=== PATIENT | male | born 1930 | race Caucasian/White ===

== ENCOUNTER 2018-07-13 22:33 | Emergency (ER) | payer OTHER ==
--- OUTSIDE RECORDS SUMMARY | 2018-07-13 22:35 | XMS REPORT | Clinical Summary ---
:1930 Author Organization [facility] Address [address] [place] [address] Care Team Providers Name Role Phone Reg Abrams MD Primary Care Provider Allergies No Known Allergies Medications Not on file Active Problems Not on file Social History Tobacco Use Types Packs/Day Years Used Date Never Smoker Alcohol Use Drinks/Week oz/Week Comments No Sex Assigned at Date Recorded Not on file Job Start Date Occupation Industry Not on file Not on file Not on file Travel History Travel Start Travel End No recent travel history available. Last Filed Vital Signs Not on file Plan of Treatment Health Maintenance Due Date Last Done Comments SHINGRIX VACCINE (1 of 2) 1982 ZOSTER VACCINE 1992 PNEUMOCOCCAL POLYSACCHARIDE VACCINE AGE 65 AND OVER 1997 PNEUMOCOCCAL-13 1997 INFLUENZA VACCINE 03/13/2018 Results Not on fileafter 07/12/2017 Insurance Payer Benefit Plan / Group Subscriber ID Type Phone Address AETNA MEDICARE AETNA MEDICARE HMO/PPO [facility] xxxxxxxx HMO Advance Directives Patient has advance care planning documents on file. For more information, please contact:[facility] [place] [address]
--- OUTSIDE RECORDS SUMMARY | 2018-07-13 22:36 | XMS REPORT | Continuity of Care Document ---
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 Condition 01/25/2015 Medical 13 Group NEED Active 04/30/20 Condition 01/25/2015 Medical PROPHYLACTIC 13 Group VACCINATION&INOC ULATION FLU OTHER SPECIFIED Active 04/01/20 Condition 01/25/2015 Medical RETENTION OF 13 Group URINE HYPERTENSION Active Condition 01/25/2015 Medical Group DYSLIPIDEMIA Active Condition 01/25/2015 Medical Group BLADDER CANCER Inactive Condition 01/25/2015 Medical Group Medications Medication Details Route Status Patient Ordering Order Source Instructions Provider Date BACTRIM TABS twicw Active 01/26/20 Medical daily 15 Group FLONASE 50 bid Active 06/24/20 Medical MCG/ACT SUSP 14 Group MOBIC 7.5 MG one bid Active 06/24/20 Medical TABS with food. 14 Group DOXYCYCLINE one bid No Longer 04/06/20 Medical MONOHYDRATE Active 14 Group 100 MG CAPS DOXYCYCLINE one bid Active 04/06/20 Medical MONOHYDRATE 14 Group 100 MG CAPS TRIAMTERENE-HC one daily Active 10/28/19 Medical TZ 37.5-25 MG 14 Group CAPS AMLODIPINE 1 tablet Active 07/15/20 Medical BESYLATE 5 MG twice day 13 Group TABS ANDROGEL PUMP 1 to 2 No Longer 07/15/20 Medical 20.25 MG/ACT pump daily Active 13 Group (1.62%) GEL AMLODIPINE 1 tablet Active 07/15/20 Medical BESYLATE 5 MG twice day 13 Group TABS CENTRUM SILVER daily Active 04/01/20 Medical ULTRA MENS 13 Group TABS ADULT ASPIRIN TAKE 1 Active Medical LOW STRENGTH TABLET BY Group 81 MG TBDP MOUTH DAILY [facility] FISH OIL Active Medical 1000 MG CAPS Group [facility] VITAMIN C Active Medical 1000 MG TABS Group FENOFIBRATE 1 tab by Active Medical 145 MG TABS mouth Group daily FENOFIBRATE 1 tab by Active Medical 145 MG TABS mouth Group daily Allergies, Adverse Reactions, Alerts Substance Category Reaction Severity Reaction Status Date Comments Source type Reported Immunizations Immunization Date Given Site Status Last Updated Comments Source influenza 06/24/2014 completed Medical immunization (Flu Group Vax) has been administered influenza 06/11/2012 [facility] Medical immunization (Flu Group Vax) has been administered influenza 08/17/2009 [facility] Medical immunization (Flu Group Vax) has been administered influenza 04/15/2009 [facility] Medical immunization (Flu Group Vax) has been administered influenza 05/14/2008 [facility] Medical immunization (Flu Group Vax) has been administered influenza 05/24/2007 [facility] Medical immunization (Flu Group Vax) has been administered pneumococcal 09/18/2006 [facility] Medical immunization Group administered Results Order Name Results Value Reference Date Interpretation Comments Source Range Chemistry CHOLESTEROL 162 - 199 mg/dl 2014 Medical Group Chemistry TRIGLYCERIDE 165 - 149 mg/dl 2014 Medical Group Chemistry HDL 65 >=61 mg/dl 2014 Medical Group Chemistry LDL 64 - 99 mg/dl 2014 Medical Group Chemistry SODIUM 141 135 - 145 MEQ/L 2014 Medical mmol/L Group Chemistry POTASSIUM 4.9 3.5 - 5.1 MEQ/L 2014 Medical mmol/L Group Chemistry CREATININE 1.6 0.5 - 1.4 mg/dL 2014 Medical Group Chemistry BUN 29 7 - 22 mg/dL 2014 Medical Group Chemistry BUN/CREAT 18 6 - 25 2014 [facility] Group Chemistry ALBUMIN 5.0 3.5 - 5.0 g/dL 2014 Medical Group Chemistry CALCIUM 10.0 8.5 - 10.5 mg/dL 2014 Medical Group Chemistry SGPT (ALT) 40 U/L 0 - 65 2014 Medical Group Chemistry SGOT (AST) 32 U/L 0 - 37 2014 Medical Group Chemistry ALK PHOS 45 U/L 39 - 136 2014 Medical Group Chemistry TSH 2.080 0.360 - uIU/mL 3.740 2014 Medical Group Chemistry PSA < 0.01 0.00 - 4.00 ng/mL 2014 Medical ng/mL Group Hematology HGB 13.5 14.0 - 18.0 g/dL 2014 Medical Group Hematology HCT 39.8 % 42.0 - 54.0 2014 Medical Group Hematology PLATELETS 308 133 - 450 K/CMM 2014 Medical /mm3 Group Chemistry CHOLESTEROL 160 - 199 08/25/ MH mg/dl 2013 Medical Group Chemistry TRIGLYCERIDE 207 - 149 08/25/ MH mg/dl 2013 Medical Group Chemistry HDL 61 >=61 08/25/ MH mg/dl 2013 Medical Group Chemistry CHOLESTEROL 160 - 199 08/25/ MH mg/dl 2013 Medical Group Chemistry TRIGLYCERIDE 207 - 149 08/25/ MH mg/dl 2013 Medical Group Chemistry HDL 61 >=61 08/25/ MH mg/dl 2013 Medical Group Chemistry LDL 58 - 99 08/25/ MH mg/dl 2013 Medical Group Chemistry CHOLESTEROL 160 - 199 08/25/ MH mg/dl 2013 Medical Group Chemistry TRIGLYCERIDE 207 - 149 08/25/ MH mg/dl 2013 Medical Group Chemistry HDL 61 >=61 08/25/ MH mg/dl 2013 Medical Group Chemistry LDL 58 - 99 08/25/ MH mg/dl 2013 Medical Group Chemistry CHOLESTEROL 160 - 199 08/25/ MH mg/dl 2013 Medical Group Chemistry TRIGLYCERIDE 207 - 149 08/25/ MH mg/dl 2013 Medical Group Chemistry HDL 61 >=61 08/25/ MH mg/dl 2013 Medical Group Chemistry HDL 61 >=61 08/25/ MH mg/dl 2013 Medical Group Chemistry PSA < 0.01 0.00 - 4.00 07/15/ MH ng/mL 2012 Medical ng/mL Group Chemistry PSA < 0.01 0.00 - 4.00 07/15/ MH ng/mL 2012 Medical ng/mL Group Chemistry PSA < 0.01 0.00 - 4.00 07/15/ MH ng/mL 2012 Medical ng/mL Group Hematology HGB 12.3 14.0 - 18.0 g/dL 2012 Medical Group Hematology HCT 37.9 % 42.0 - 54.0 2012 Medical Group Hematology PLATELETS 404 133 - 450 K/CMM 2012 Medical /mm3 Group Serology CEA 14.9 0.0 - 3.0 ng/mL 2012 Medical Group Serology CEA 14.9 0.0 - 3.0 ng/mL 2012 Medical Group Serology CEA 14.9 0.0 - 3.0 ng/mL 2012 Medical Group Vital Signs Vital Sign Value Date Comments Source Height 67 01/25/2015 Medical Group Weight 170 01/25/2015 Medical Group Temperature Oral (F) 97.7 F 01/25/2015 Medical Group Heart Rate 65 01/25/2015 Medical Group Systolic (mm Hg) 160 01/25/2015 Medical Group Diastolic (mm Hg) 72 01/25/2015 Medical Group Height 67 12/25/2014 Medical Group Weight 173 12/25/2014 Medical Group Temperature Oral (F) 97.4 F 12/25/2014 Medical Group Heart Rate 72 12/25/2014 Medical Group Systolic (mm Hg) 177 12/25/2014 Medical Group Diastolic (mm Hg) 84 12/25/2014 Medical Group Height 67 06/24/2014 Medical Group Weight 173 06/24/2014 Medical Group Temperature Oral (F) 97.4 F 06/24/2014 Medical Group Heart Rate 72 06/24/2014 Medical Group Systolic (mm Hg) 175 06/24/2014 Medical Group Diastolic (mm Hg) 68 06/24/2014 Medical Group Weight 167 04/06/2014 Medical Group Temperature Oral (F) 96.8 F 04/06/2014 Medical Group Heart Rate 71 04/06/2014 Medical Group Systolic (mm Hg) 120 04/06/2014 Medical Group Diastolic (mm Hg) 80 04/06/2014 Medical Group Weight 172 10/27/2013 Medical Group Temperature Oral (F) 98.7 F 10/27/2013 Medical Group Heart Rate 62 10/27/2013 Medical Group Systolic (mm Hg) 160 10/27/2013 Medical Group Diastolic (mm Hg) 80 10/27/2013 Medical Group Weight 165 07/15/2013 Medical Group Temperature Oral (F) 97.2 F 07/15/2013 Medical Group Heart Rate 80 07/15/2013 Medical Group Systolic (mm Hg) 144 07/15/2013 Medical Group Diastolic (mm Hg) 70 07/15/2013 Medical Group Weight 175 05/26/2013 Medical Group Height 67 05/26/2013 Medical Group Temperature Oral (F) 97.5 F 05/26/2013 Medical Group Heart Rate 66 05/26/2013 Medical Group Systolic (mm Hg) 150 05/26/2013 Medical Group Diastolic (mm Hg) 80 05/26/2013 Medical Group Weight 172 04/01/2013 Medical Group Temperature Oral (F) 98.2 F 04/01/2013 Medical Group Heart Rate 76 04/01/2013 Medical Group Systolic (mm Hg) 140 04/01/2013 Medical Group Diastolic (mm Hg) 76 04/01/2013 Medical Group Encounters Location Location Encounter Encounter Reason Attending ADM DC Status Source Details Type Number For Provider Date Date Visit [facility] Lab Report [id number] Radha 04/06 04/06 [facility] 420 [facility] Office [id number] Radha04/06 [place] Visit 520 [facility] Office [id number] 04/09 [place] Visit 810 [facility] MD [facility] Office [id number] Radha06/24 [place] Visit 690 [facility] Office [id number] Radha12/25 [place] Visit 550 [facility] Office [id number] Radha 01/25 01/25 [place] Visit 680 Medical [facility] MD [facility] Group [facility] Outpatient [id number] RAHDA 05/07 [facility] [place] Outpatient [id number] RADHA 07/22 [facility] [place] Outpatient [id number] RADHA 08/19 [facility] [place] Outpatient [id number] RADHA08/26 [facility] [place] Outpatient [id number] RADHA 09/15 [facility] [place] Outpatient [id number] RADHA 11/04 [facility] [place] Outpatient [id number] RADHA12/27 [facility] [place] Procedures Procedure Code Date Perfomer Comments Source colonoscopy [id number] 01/16/2012 [facility] colonoscopy [id number] 01/16/2012 [facility] bone density 4002.65 07/13/2003 [facility]
--- OUTSIDE RECORDS SUMMARY | 2018-07-13 22:36 | XMS REPORT | Continuity of Care Document ---
:1932 Author Organization [facility] Care Team Providers Name Role Phone MD Abrams Luis Unavailable Unavailable Insurance Providers Payer name Policy type / Policy ID Covered libertarian ID Policy Andrews Coverage type [place] [employer] AETNA - [place] [employer] (MEDICARE SUPPLEMENT) AETNA - [place] [employer] (MEDICARE SUPPLE[place]) [place] [employer] [place] [employer] AETNA (MEDICARE REPLACEMENT [place] PPO) [place]: [place] SOL[place] AETNA (MEDICARE REPLACEMENT [place] PPO) [place]: [place] SOL[employer] SOL[place] SOLUT[place] AETNA - [place] CHEMICAL (MEDICARE SUPPLE[place]) [place] SOLUT[place] AETNA - [place] CHEM[employer] (MEDICARE SUPPLEMENT) AETNA [[id number]] [place] SOLUT[place] AETNA - [place] CHEM[employer] (MEDICARE SUPPLEMENT) AETNA [[id number]] [place] SOLUT[place] AETNA - [place] CHEM[employer] (MEDICARE SUPPLEMENT) AETNA [[id number]] [place] SOLUT[place] AETNA - [place] [employer] (MEDICARE SUPPLEMENT) AETNA [[id number]] [place] SOLUT[place] AETNA - [place] [employer] (MEDICARE SUPPLEMENT) Encounters Encounter Performer Location Date Lab Report Reg Abrams MD [facility] Apr 06, 2014 Problems Problem Effective Dates Problem Status HYPERTENSION Active DYSLIPIDEMIA Active BLADDER CANCER Inactive OTHER SPECIFIED RETENTION OF URINE Apr 01, 2013 Active NEED PROPHYLACTIC VACCINATION&INOCULATION FLU Apr 30, 2013 Active DYSURIA, CHRONIC May 26, 2013 Active URINARY TRACT INFECTION Jul 15, 2013 Active CARCINOMA, BLADDER, HX OF Oct 27, 2013 Active Procedures Date Description Comments Jan 16, 2012 colonoscopy Done Jul 13, 2003 bone density Done Jan 16, 2012 colonoscopy Complete Apr 01, 2013 smoking status never smoker Apr 06, 2014 smoking status Never smoker Medications Medication Instructions Start Date Status ADULT ASPIRIN LOW STRENGTH 81 MG TAKE 1 TABLET BY MOUTH DAILY Active TBDP [facility] FISH OIL 1000 MG CAPS Active [facility] VITAMIN C 1000 MG TABS Active CENTRUM SILVER ULTRA MENS TABS daily Apr 01, 2013 Active AMLODIPINE BESYLATE 5 MG TABS 1 tablet twice day Jul 15, 2013 Active ANDROGEL PUMP 20.25 MG/ACT (1.62%) 1 to 2 pump daily Jul 15, 2013 Active GEL FENOFIBRATE 145 MG TABS 1 tab by mouth daily Active TRIAMTERENE-HCTZ 37.5-25 MG CAPS one daily Oct 27, 2013 Active DOXYCYCLINE MONOHYDRATE 100 MG CAPS one bid Apr 06, 2014 Active Immunizations Vaccine Date Status influenza immunization (Flu Vax) has been administered May 24, 2007 completed influenza immunization (Flu Vax) has been administered May 14, 2008 completed influenza immunization (Flu Vax) has been administered Apr 15, 2009 completed influenza immunization (Flu Vax) has been administered Aug 17, 2009 completed influenza immunization (Flu Vax) has been administered Jun 11, 2012 completed pneumococcal immunization administered Sep 18, 2006 completed Vital Signs Date Description Test Result Apr 01, 2013 weight E&M WEIGHT 172 lb Apr 01, 2013 temperature E&M TEMPERATURE 98.2 deg f Apr 01, 2013 pulse rate E&M PULSE RATE 76 /min Apr 01, 2013 blood pressure, systolic BP SYSTOLIC 140 mm Hg Apr 01, 2013 blood pressure, diastolic BP DIASTOLIC 76 mm Hg May 26, 2013 weight E&M WEIGHT 175 lb May 26, 2013 height E&M HEIGHT 67 in May 26, 2013 temperature E&M TEMPERATURE 97.5 deg f May 26, 2013 pulse rate E&M PULSE RATE 66 /min May 26, 2013 blood pressure, systolic BP SYSTOLIC 150 mm Hg May 26, 2013 blood pressure, diastolic BP DIASTOLIC 80 mm Hg Jul 15, 2013 weight E&M WEIGHT 165 lb Jul 15, 2013 temperature E&M TEMPERATURE 97.2 deg f Jul 15, 2013 pulse rate E&M PULSE RATE 80 /min Jul 15, 2013 blood pressure, systolic BP SYSTOLIC 144 mm Hg Jul 15, 2013 blood pressure, diastolic BP DIASTOLIC 70 mm Hg Oct 27, 2013 weight E&M WEIGHT 172 lb Oct 27, 2013 temperature E&M TEMPERATURE 98.7 deg f Oct 27, 2013 pulse rate E&M PULSE RATE 62 /min Oct 27, 2013 blood pressure, systolic BP SYSTOLIC 160 mm Hg Oct 27, 2013 blood pressure, diastolic BP DIASTOLIC 80 mm Hg Apr 06, 2014 weight E&M WEIGHT 167 lb Apr 06, 2014 temperature E&M TEMPERATURE 96.8 deg f Apr 06, 2014 pulse rate E&M PULSE RATE 71 /min Apr 06, 2014 blood pressure, systolic BP SYSTOLIC 120 mm Hg Apr 06, 2014 blood pressure, diastolic BP DIASTOLIC 80 mm Hg Results Date Description Test Name Value Reference Interpretation Status Jul 15, hemoglobin, blood HGB 12.3 g/dL 14.0-18.0 Low 2012Jul 15, hematocrit, blood HCT 37.9 % 42.0-54.0 Low 2012Jul 15, platelet count PLATELETS 404 K/CMM 181-166 0517 /mm3 Apr 06, cholesterol, serum CHOLESTEROL 160 mg/dl <=199 2013Apr 06, triglyceride, serum, TRIGLYCERIDE 207 mg/dl <=149 High 2013 fasting Apr 06, HDL cholesterol, HDL 61 mg/dl >=61 2013 serum Apr 06, cholesterol, serum CHOLESTEROL 160 mg/dl <=199 2013Apr 06, triglyceride, serum, TRIGLYCERIDE 207 mg/dl <=149 High 2013 fasting Apr 06, HDL cholesterol, HDL 61 mg/dl >=61 2013 serum Apr 06, LDL cholesterol, LDL 58 mg/dl <=99 2013 serum Jul 15, prostate specific PSA < 0.01 0.00-4.00 2013 antigen ng/mL ng/mL Apr 06, cholesterol, serum CHOLESTEROL 160 mg/dl <=199 2013Apr 06, triglyceride, serum, TRIGLYCERIDE 207 mg/dl <=149 High 2013 fasting Apr 06, HDL cholesterol, HDL 61 mg/dl >=61 2013 serum Apr 06, LDL cholesterol, LDL 58 mg/dl <=99 2013 serum Jul 15, carcinoembryonic CEA 14.9 ng/mL 0.0-3.0 High 2013 antigen
--- OUTSIDE RECORDS SUMMARY | 2018-07-13 22:36 | XMS REPORT | Continuity of Care Document ---
:1932 Author Organization [facility] Care Team Providers Name Role Phone MD Abrams Luis Unavailable Unavailable Insurance Providers Payer name Policy type / Policy ID Covered democrat ID Policy Andrews Coverage type [place]: [...] AETNA - [place] [employer] (MEDICARE SUPPLEMENT) AETNA [[id number]] [place] [employer] [employer] AETNA - [place] [employer] (MEDICARE SUPPLEMENT) AETNA [[id number]] [place] SOLUT[place] AETNA - [place] CHEM[employer] (MEDICARE SUPPLEMENT) AETNA [[id number]] [place] SOLUT[place] AETNA - [place] [employer] (MEDICARE SUPPLEMENT) AETNA [[id number]] [place] AETNA - [place] [employer] (MEDICARE SUPPLEMENT) Encounters Encounter Performer Location Date Office Visit Reg Abrams MD [facility] Apr 09, 2014 Problems Problem Effective Dates Problem Status [...] 2012Jul 15, platelet count PLATELETS 404 K/CMM [phone] /mm3 Apr 06, cholesterol, serum CHOLESTEROL 160 [...]
--- OUTSIDE RECORDS SUMMARY | 2018-07-13 22:36 | XMS REPORT | Continuity of Care Document ---
:1932 Author Organization [facility] Care Team Providers Name Role Phone [...] AETNA - [place] [employer] (MEDICARE SUPPLEMENT) AETNA [[id number]] [place] SOL[employer] AETNA - [place] [employer] (MEDICARE SUPPLEMENT) AETNA [[id number]] [place] SOLUT[place] AETNA - [place] [employer] (MEDICARE SUPPLEMENT) AETNA [[id number]] [place] SOLUT[place] AETNA - [place] [employer] (MEDICARE SUPPLEMENT) AETNA [[id number]] [place]UT[place] AETNA - [place] [employer] (MEDICARE SUPPLEMENT) Encounters Encounter Performer Location Date Office Visit Reg Abrams MD [facility] Apr 06, 2014 Problems Problem Effective [...] 2012Jul 15, platelet count PLATELETS 404 K/CMM [phone] /mm3 Jul 15, prostate specific PSA < 0.01 0.00-4.00 2012 antigen ng/mL ng/mL Jul 15, carcinoembryonic CEA 14.9 ng/mL 0.0-3.0 High 2013 antigen
--- OUTSIDE RECORDS SUMMARY | 2018-07-13 22:37 | XMS REPORT | Continuity of Care Document ---
:1930 Author Organization [facility] Care Team Providers Name Role Phone [...] AETNA - [place] CHEM[employer] (MEDICARE SUPPLEMENT) AETNA [[id number]] [place]: [place] [employer] AETNA - [place] CHEMICAL (MEDICARE SUPPLEMENT) AETNA [[id number]] [place]: [place] AETNA - [place] CHEM[employer] (MEDICARE SUPPLEMENT) AETNA [[id number]] [place]: [employer] AETNA - [place] CHEMICAL (MEDICARE SUPPLEMENT) AETNA [[id number]] [place]: [employer] AETNA - [place] CHEMICAL (MEDICARE SUPPLEMENT) AETNA [[id number]] [place]: [place] AETNA - [place] CHEMICAL (MEDICARE SUPPLEMENT) AETNA [[id number]] [place]: [place] AETNA - [place] CHEMICAL (MEDICARE SUPPLEMENT) AETNA [[id number]] [place]: [place] [employer] AETNA - [place] CHEM[employer] (MEDICARE SUPPLEMENT) AETNA (MEDICARE REPLACEMENT BRENDAN PPO) AETNA [[id number]] [place]: [employer] AETNA - [place] CHEMICAL (MEDICARE SUPPLEMENT) AETNA [[id number]] [place]: [employer] AETNA - [place] CHEMICAL (MEDICARE SUPPLEMENT) AETNA [[id number]] [place]: [employer] AETNA - [place] CHEMICAL (MEDICARE SUPPLEMENT) Encounters Encounter Performer Location Date Office Visit Reg Abrams MD [facility] Jan 25, 2015 Problems Problem Effective Dates Problem Status HYPERTENSION Active DYSLIPIDEMIA Active BLADDER CANCER Inactive OTHER SPECIFIED RETENTION OF URINE Apr 01, 2013 Active NEED PROPHYLACTIC VACCINATION&INOCULATION FLU Apr 30, 2013 Active DYSURIA, CHRONIC May 26, 2013 Active URINARY TRACT INFECTION Jul 15, 2013 Active CARCINOMA, BLADDER, HX OF Oct 27, 2013 Active ALLERGIC RHINITIS Jun 24, 2014 Active SACROILIITIS, NOT ELSEWHERE CLASSIFIED Jun 24, 2014 Active PALPITATIONS December 25, 2014 Active PREVENTIVE HEALTH CARE Jan 25, 2015 Active Procedures Date Description Comments Jan 16, 2012 colonoscopy Done Jul 13, 2003 bone density Done Jan 16, 2012 colonoscopy Complete Apr 01, 2013 smoking status never smoker Apr 06, 2014 smoking status Never smoker Jun 24, 2014 smoking status Never smoker December 25, 2014 smoking status Never smoker Jan 25, 2015 smoking status Never smoker Medications Medication Instructions Start Date Status ADULT ASPIRIN LOW STRENGTH 81 MG TAKE 1 TABLET BY MOUTH DAILY Active TBDP [facility] FISH OIL 1000 MG CAPS Active [facility] VITAMIN C 1000 MG TABS Active CENTRUM SILVER ULTRA MENS TABS daily Apr 01, 2013 Active AMLODIPINE BESYLATE 5 MG TABS 1 tablet twice day Jul 15, 2013 Active FENOFIBRATE 145 MG TABS 1 tab by mouth daily Active TRIAMTERENE-HCTZ 37.5-25 MG CAPS one daily Oct 27, 2013 Active ANDROGEL PUMP 20.25 MG/ACT (1.62%) 1 to 2 pump daily Jul 15, 2013 Inactive GEL DOXYCYCLINE MONOHYDRATE 100 MG one bid Apr 06, 2014 Inactive CAPS FLONASE 50 MCG/ACT SUSP bid Jun 24, 2014 Active MOBIC 7.5 MG TABS one bid with food. Jun 24, 2014 Active BACTRIM TABS twicw daily Jan 25, 2015 Active Immunizations Vaccine Date Status influenza immunization [...] pneumococcal immunization administered Sep 18, 2006 completed influenza immunization (Flu Vax) has been administered Jun 24, 2014 completed Vital Signs Date Description Test Result Apr 01, 2013 weight E&M - 3141-9 WEIGHT 172 lb Apr 01, 2013 temperature E&M TEMPERATURE 98.2 deg f Apr 01, 2013 pulse rate E&M - 8867-4 PULSE RATE 76 /min Apr 01, 2013 blood pressure, systolic - 8480-6 BP SYSTOLIC 140 mm Hg Apr 01, 2013 blood pressure, diastolic - 8462-4 BP DIASTOLIC 76 mm Hg May 26, 2013 weight E&M - 3141-9 WEIGHT 175 lb May 26, 2013 height E&M - 8302-2 HEIGHT 67 in May 26, 2013 temperature E&M TEMPERATURE 97.5 deg f May 26, 2013 pulse rate E&M - 8867-4 PULSE RATE 66 /min May 26, 2013 blood pressure, systolic - 8480-6 BP SYSTOLIC 150 mm Hg May 26, 2013 blood pressure, diastolic - 8462-4 BP DIASTOLIC 80 mm Hg Jul 15, 2013 weight E&M - 3141-9 WEIGHT 165 lb Jul 15, 2013 temperature E&M TEMPERATURE 97.2 deg f Jul 15, 2013 pulse rate E&M - 8867-4 PULSE RATE 80 /min Jul 15, 2013 blood pressure, systolic - 8480-6 BP SYSTOLIC 144 mm Hg Jul 15, 2013 blood pressure, diastolic - 8462-4 BP DIASTOLIC 70 mm Hg Oct 27, 2013 weight E&M - 3141-9 WEIGHT 172 lb Oct 27, 2013 temperature E&M TEMPERATURE 98.7 deg f Oct 27, 2013 pulse rate E&M - 8867-4 PULSE RATE 62 /min Oct 27, 2013 blood pressure, systolic - 8480-6 BP SYSTOLIC 160 mm Hg Oct 27, 2013 blood pressure, diastolic - 8462-4 BP DIASTOLIC 80 mm Hg Apr 06, 2014 weight E&M - 3141-9 WEIGHT 167 lb Apr 06, 2014 temperature E&M TEMPERATURE 96.8 deg f Apr 06, 2014 pulse rate E&M - 8867-4 PULSE RATE 71 /min Apr 06, 2014 blood pressure, systolic - 8480-6 BP SYSTOLIC 120 mm Hg Apr 06, 2014 blood pressure, diastolic - 8462-4 BP DIASTOLIC 80 mm Hg Jun 24, 2014 height E&M - 8302-2 HEIGHT 67 in Jun 24, 2014 weight E&M - 3141-9 WEIGHT 173 lb Jun 24, 2014 temperature E&M TEMPERATURE 97.4 deg f Jun 24, 2014 pulse rate E&M - 8867-4 PULSE RATE 72 /min Jun 24, 2014 blood pressure, systolic - 8480-6 BP SYSTOLIC 175 mm Hg Jun 24, 2014 blood pressure, diastolic - 8462-4 BP DIASTOLIC 68 mm Hg December 25, 2014 height E&M - 8302-2 HEIGHT 67 in December 25, 2014 weight E&M - 3141-9 WEIGHT 173 lb December 25, 2014 temperature E&M TEMPERATURE 97.4 deg f December 25, 2014 pulse rate E&M - 8867-4 PULSE RATE 72 /min December 25, 2014 blood pressure, systolic - 8480-6 BP SYSTOLIC 177 mm Hg December 25, 2014 blood pressure, diastolic - 8462-4 BP DIASTOLIC 84 mm Hg Jan 25, 2015 height E&M - 8302-2 HEIGHT 67 in Jan 25, 2015 weight E&M - 3141-9 WEIGHT 170 lb Jan 25, 2015 temperature E&M TEMPERATURE 97.7 deg f Jan 25, 2015 pulse rate E&M - 8867-4 PULSE RATE 65 /min Jan 25, 2015 blood pressure, systolic - 8480-6 BP SYSTOLIC 160 mm Hg Jan 25, 2015 blood pressure, diastolic - 8462-4 BP DIASTOLIC 72 mm Hg Results Date Description Test Name Value Reference Interpretation Status Jul 15, hemoglobin, blood HGB 12.3 g/dL 14.0-18.0 Low 2012Jul 15, hematocrit, blood HCT 37.9 % 42.0-54.0 Low 2012Jul 15, platelet count PLATELETS 404 K/CMM 531-295 5239 /mm3 Apr 06, cholesterol, serum CHOLESTEROL 160 [...] < 0.01 0.00-4.00 2012 antigen ng/mL ng/mL Apr 06, cholesterol, serum CHOLESTEROL 160 mg/dl <=199 2013Apr 06, triglyceride, serum, TRIGLYCERIDE 207 mg/dl <=149 High 2013 fasting Apr 06, HDL cholesterol, HDL 61 mg/dl >=61 2013 serum Apr 06, LDL cholesterol, LDL 58 mg/dl <=99 2014 serum Jul 15, carcinoembryonic CEA 14.9 ng/mL 0.0-3.0 High 2013 antigen
--- OUTSIDE RECORDS SUMMARY | 2018-07-13 22:37 | XMS REPORT | Continuity of Care Document ---
:1930 Author Organization [facility] Care Team Providers Name Role Phone MD Abrams Luis Unavailable Unavailable Insurance Providers Payer name Policy type / Policy ID Covered alliance party ID Policy Andrews Coverage type [place]: [...] AETNA - [place] [employer] (MEDICARE SUPPLEMENT) AETNA [[id number]] [place] [employer] AETNA - [place] CHEMICAL (MEDICARE SUPPLEMENT) AETNA [[id number]] [place] [employer] AETNA - [place] CHEMICAL (MEDICARE SUPPLEMENT) AETNA [[id number]] [place] [employer] AETNA - [place] CHEMICAL (MEDICARE SUPPLEMENT) AETNA [[id number]] [place] [employer] AETNA - [place] CHEMICAL (MEDICARE SUPPLEMENT) AETNA [[id number]] [place] [employer] AETNA - [place] CHEMICAL (MEDICARE SUPPLEMENT) AETNA [[id number]] [place] AETNA - [place] CHEMICAL (MEDICARE SUPPLEMENT) AETNA [[id number]] [place] AETNA - [place] CHEMICAL (MEDICARE SUPPLEMENT) AETNA (MEDICARE REPLACEMENT BRENDAN PPO) AETNA [[id number]] [place] [employer]UT[employer] AETNA - [place] CHEMICAL (MEDICARE SUPPLEMENT) AETNA [[id number]] [place] SOLUT[employer] AETNA - [place] CHEMICAL (MEDICARE SUPPLEMENT) AETNA [[id number]] [place] [employer] AETNA - [place] CHEMICAL (MEDICARE SUPPLEMENT) Encounters Encounter Performer Location Date Office Visit Reg Abrams MD [facility] Jan 25, 2015 Problems Problem Effective Dates [...] 2012Jul 15, platelet count PLATELETS 404 K/CMM 741-818 1065 /mm3 Jan 25, hemoglobin, blood HGB 13.5 g/dL 14.0-18.0 Low 2014Jan 25, hematocrit, blood HCT 39.8 % 42.0-54.0 Low 2014Jan 25, platelet count PLATELETS 308 K/CMM 368-561 6120 /mm3 Apr 06, cholesterol, serum CHOLESTEROL 160 [...] 06, HDL cholesterol, HDL 61 mg/dl >=61 2014 serum Apr 06, LDL cholesterol, LDL 58 mg/dl <=99 2014 serum Jan 25, cholesterol, serum CHOLESTEROL 162 mg/dl <=199 2014Jan 25, triglyceride, serum, TRIGLYCERIDE 165 mg/dl <=149 High 2014 fasting Jan 25, HDL cholesterol, HDL 65 mg/dl >=61 2014 serum Jan 25, LDL cholesterol, LDL 64 mg/dl <=99 2014 serum Jan 25, sodium, serum SODIUM 141 MEQ/L 984-106 0581 mmol/L Jan 25, potassium, serum POTASSIUM 4.9 MEQ/L 3.5-5.1 2014 mmol/L Jan 25, creatinine, serum CREATININE 1.6 mg/dL 0.5-1.4 High 2014Jan 25, urea nitrogen, blood BUN 29 mg/dL 7-22 High 2014Jan 25, urea BUN/CREAT 18 null 6-25 2015 nitrogen/creatinine ratio, serum Jan 25, albumin, serum ALBUMIN 5.0 g/dL 3.5-5.0 2014Jan 25, calcium, serum CALCIUM 10.0 8.5-10.5 2014 mg/dL Jan 25, alanine SGPT (ALT) 40 U/L 0-65 2014 aminotransferase (SGPT), serum Jan 25, aspartate SGOT (AST) 32 U/L 0-37 2014 aminotransferase (SGOT), serum Jan 25, alkaline ALK PHOS 45 U/L 39-136 2014 phosphatase, serum Jan 25, thyroid stimulating TSH 2.080 0.360-3.740 2015 hormone, serum uIU/mL Jan 25, prostate specific PSA < 0.01 0.00-4.00 2014 antigen ng/mL ng/mL Jul 15, carcinoembryonic CEA 14.9 0.0-3.0 High 2012 antigen ng/mL
--- OUTSIDE RECORDS SUMMARY | 2018-07-13 22:37 | XMS REPORT | Continuity of Care Document ---
:1930 Author Organization [facility] Care Team Providers Name [...] AETNA - [place] CHEM[employer] (MEDICARE SUPPLEMENT) AETNA [[id number]] [place] [employer] AETNA - [place] CHEMICAL (MEDICARE SUPPLEMENT) AETNA [[id number]] [place] SOLUTIONS AETNA - [place] CHEMICAL (MEDICARE SUPPLEMENT) AETNA [[id number]] [place] SOLUTIONS AETNA - [place] CHEMICAL (MEDICARE SUPPLEMENT) AETNA [[id number]] [place]: [place] SOLUTIONS AETNA - [place] CHEMICAL (MEDICARE SUPPLEMENT) AETNA [[id number]] [place]: [place] SOLUTIONS AETNA - [place] CHEMICAL (MEDICARE SUPPLEMENT) AETNA [[id number]] [place]: [place] SOLUTIONS AETNA - [place] CHEMICAL (MEDICARE SUPPLEMENT) AETNA [[id number]] [place]: [place] SOLUTIONS AETNA - [place] CHEMICAL (MEDICARE SUPPLEMENT) AETNA (MEDICARE REPLACEMENT BRENDAN PPO) AETNA [[id number]] [place]: [employer] SOLUTIONS AETNA - [place] CHEMICAL (MEDICARE SUPPLEMENT) AETNA [[id number]] MEDIC[place]: [employer] SOLUTIONS AETNA - [place] CHEMICAL (MEDICARE SUPPLEMENT) Encounters Encounter Performer Location Date Office Visit Reg Abrams MD [facility] December 25, 2014 Problems Problem Effective Dates Problem Status [...] 2014 Active PALPITATIONS December 25, 2014 Active Procedures Date Description Comments Jan 16, 2012 colonoscopy Done Jul 13, 2003 bone density Done Jan 16, 2012 colonoscopy Complete Apr 01, 2013 smoking status never smoker Apr 06, 2014 smoking status Never smoker Jun 24, 2014 smoking status Never smoker December 25, 2014 smoking status Never smoker Medications Medication [...] bid with food. Jun 24, 2014 Active Immunizations Vaccine Date Status influenza [...] - 8462-4 BP DIASTOLIC 84 mm Hg Results Date Description Test Name Value Reference Interpretation Status Jul 15, hemoglobin, blood HGB 12.3 g/dL 14.0-18.0 Low 2012Jul 15, hematocrit, blood HCT 37.9 % 42.0-54.0 Low 2012Jul 15, platelet count PLATELETS 404 K/CMM 342-011 5851 /mm3 Apr 06, cholesterol, serum CHOLESTEROL 160 [...]
--- OUTSIDE RECORDS SUMMARY | 2018-07-13 22:37 | XMS REPORT | Continuity of Care Document ---
:1930 Author Organization [facility] Care Team Providers Name Role Phone MD Abrams Luis Unavailable Unavailable Insurance Providers Payer name Policy type / Policy ID Covered constitution party ID Policy Andrews Coverage type MEDICARE [...] AETNA - [place] CHEMICAL (MEDICARE SUPPLEMENT) AETNA [[id number]] [place] AETNA - [place] CHEMICAL (MEDICARE SUPPLEMENT) AETNA [[id number]] [place]: [place] SOLUTIONS AETNA - [place] CHEMICAL (MEDICARE SUPPLEMENT) AETNA [[id number]] [place]: [place] SOLUTIONS AETNA - [place] CHEMICAL (MEDICARE SUPPLEMENT) AETNA [[id number]] [place]: [place] SOLUTIONS AETNA - [place] CHEMICAL (MEDICARE SUPPLEMENT) AETNA [[id number]] MED[place]: [place] SOLUTIONS AETNA - [place]ATT CHEMICAL (MEDICARE SUPPLEMENT) AETNA [[id number]] MED[place]: [place] SOLUTIONS AETNA - [place] CHEMICAL (MEDICARE SUPPLEMENT) AETNA [[id number]] MEDIC[place]: [place] SOLUTIONS AETNA - [place] CHEMICAL (MEDICARE SUPPLEMENT) Encounters Encounter Performer Location Date Office Visit Reg Abrams MD [facility] Jun 24, 2014 Problems Problem Effective Dates Problem Status [...] NOT ELSEWHERE CLASSIFIED Jun 24, 2014 Active Procedures Date Description Comments Jan 16, 2012 colonoscopy Done Jul 13, 2003 bone density Done Jan 16, 2012 colonoscopy Complete Apr 01, 2013 smoking status never smoker Apr 06, 2014 smoking status Never smoker Jun 24, 2014 smoking status Never smoker Medications Medication [...] - 8462-4 BP DIASTOLIC 68 mm Hg Results Date Description Test Name Value Reference Interpretation Status Jul 15, hemoglobin, blood HGB 12.3 g/dL 14.0-18.0 Low 2012Jul 15, hematocrit, blood HCT 37.9 % 42.0-54.0 Low 2012Jul 15, platelet count PLATELETS 404 K/CMM 141-416 0197 /mm3 Apr 06, cholesterol, serum CHOLESTEROL 160 [...]
[2018-07-13] MEDS ORDERED: NA CHLORIDE 0.9% 1,000 ML ONE (23:17)
[2018-07-13 23:18] LABS: Absolute Lymphocytes (CBC) 0.7 K/uL (0.7-4.9); Absolute Monocytes 1.2 K/uL (0.1-1.3); Absolute Neutrophil 8.2 K/uL (1.8-8.0); Basophils % 0.4 % (0-1.3); Eosinophils % 2.8 % (0-4.4); Hematocrit 32.6 % (39.6-49.0); Lymphocytes % 6.5 % (15.3-44.8); MCV 96.2 fL (80-100); MPV 7.9 fL (7.6-11.3); Monocytes % 11.5 % (3.3-12.3); RBC Red Blood Cell Count 3.39 M/uL (4.33-5.43)
[2018-07-13 23:25] LABS: Albumin 3.2 g/dL (3.4-5.0); Bilirubin Direct 0.1 mg/dL (0-0.2); Bilirubin Total 0.4 mg/dL (0.2-1.0); Potassium 4.3 mmol/L (3.5-5.1); Protein, Total 7.3 g/dL (6.4-8.2)
[2018-07-14] MEDS ORDERED: MORPHINE 4 MG/ML SYR ONE (00:36)
[2018-07-14 00:45] LABS: Urine Bacteria >50 /HPF (NONE SEEN); Urine Culture Reflex Order REFLEXED; Urine RBC <5 /HPF (NONE SEEN)
--- NOTE | 2018-07-14 03:22 | ER ---
Nurse's Notes [facility] Name: Avila Marsh Age: 87 yrs Sex: Male : 1930 Arrival Date: 07/13/2018 Time: 22:34 Bed 28 Private MD: Diagnosis: Dehydration;Unspecified abdominal pain Presentation: 07/13 22:42 Presenting complaint: EMS states: patient has abdominal pain and loss of appetite for 4 mg2 days. diagnosed with diverticulitis and is on metronidazole and levofloxacin for 4 days now. Transition of care: patient was not received from another setting of care. Onset of symptoms was July 13, 2018. Risk Assessment: Do you want to hurt yourself or someone else? Patient reports no desire to harm self or others. Initial Sepsis Screen: Does the patient meet any 2 criteria? No. Patient's initial sepsis screen is negative. Does the patient have a suspected source of infection? No. Patient's initial sepsis screen is negative. Care prior to arrival: Medication(s) given: zofran 4 mg, fentanyl 25 mcg. 22:42 Method Of Arrival: EMS: [facility] mg2 22:42 Acuity: ANA 3 mg2 Historical: - Allergies: 23:35 Ciprofloxacin; mg2 - Home Meds: 23:35 aspirin 81 mg Oral chew 1 tab once daily [Active]; biotin 10,000 mcg Oral tab [Active]; mg2 Fish Oil Oral daily [Active]; hydralazine 75 mg Oral tab 2 times per day [Active]; Magnesium Oxide Oral 400 mg daily [Active]; Multi-Day Oral [Active]; tramadol 50 mg Oral tab three times a day [Active]; Vitamin C Oral [Active]; - PMHx: 23:35 Bladder cancer; DVT; Hypertension; kidney problems; mg2 - PSHx: 23:35 None; mg2 - Immunization history:: Flu vaccine is up to date. - Social history:: Smoking status: Patient/guardian denies using tobacco, Patient/guardian denies using alcohol, street drugs, IV drugs. - Ebola Screening: : No symptoms or risks identified at this time. - Family history:: not pertinent. - Hospitalizations: : No recent hospitalization is reported. Screenin:36 Abuse screen: Denies threats or abuse. Nutritional screening: No deficits noted. mg2 Tuberculosis screening: No symptoms or risk factors identified. Fall Risk IV access (20 points). Assessment: 23:36 General: Appears in no apparent distress. comfortable, Behavior is calm, cooperative. mg2 Pain: Complains of pain in abdomen Pain does not radiate. Pain currently is 2 out of 10 on a pain scale. Neuro: Level of Consciousness is awake, alert, obeys commands, Oriented to person, place, time, situation. Cardiovascular: Capillary refill < 3 seconds Patient's skin is warm and dry. Respiratory: Airway is patent Respiratory effort is even, unlabored, Respiratory pattern is regular, symmetrical. GI: Reports lower abdominal pain, upper abdominal pain. : No signs and/or symptoms were reported regarding the genitourinary system. EENT: No signs and/or symptoms were reported regarding the EENT system. Derm: Skin is intact, is healthy with good turgor, Skin is pink, warm \T\ dry. normal. Musculoskeletal: No signs and/or symptoms reported regarding the musculoskeletal system. 07/14 00:42 Reassessment: patient sent to ct scan via stretcher. jl3 Vital Signs: 07/13 22:45 BP 148 / 81; Pulse 92; Resp 18; Temp 99.8; Pulse Ox 94% on R/A; Weight 74.84 kg; Height mg2 5 ft. 7 in. (170.18 cm); Pain 2/10; 07/14 03:12 BP 117 / 64; Pulse 71; Resp 18; Pulse Ox 96% on R/A; Pain 0/10; mg2 03:25 BP 122 / 67; Pulse 70; Resp 18; Pulse Ox 100% on R/A; Pain 0/10; mg2 07/13 22:45 Body Mass Index 25.84 (74.84 kg, 170.18 cm) mg2 ED Course: 07/13 22:34 Patient arrived in ED. al2 22:35 Hugo Ann MD is Attending Physician. rn 22:42 Esa Andrade RN is Primary Nurse. mg2 22:45 Triage completed. mg2 23:35 Arm band placed on. mg2 23:36 No provider procedures requiring assistance completed. Maintain EMS IV. Dressing mg2 intact. Good blood return noted. Site clean \T\ dry. Gauge \T\ site: 20 \T\ LAC. 23:37 Patient has correct armband on for positive identification. mg2 07/14 00:[address] via stretcher. kw1 00:49 Abdomen In Process Unspecified. EDMS 00:50 CT completed. Patient tolerated procedure well. Patient moved back from CT. kw1 03:24 IV discontinued, intact, bleeding controlled, No redness/swelling at site. Pressure mg2 dressing applied. Administered Medications: 07/13 23:13 Not Given (Patient Refused): Zofran 4 mg IVP once; over 2 minutes mg2 23:13 Drug: NS 0.9% 500 ml Route: IV; Rate: bolus; Site: left antecubital; mg2 07/14 03:09 Follow up: Response: No adverse reaction; IV Status: Completed infusion mg2 00:31 Drug: morphine 4 mg Route: IVP; Site: left antecubital; jl3 01:33 Follow up: Response: No adverse reaction; Marked relief of symptoms mg2 02:19 Drug: NS 0.9% 500 ml Route: IV; Rate: bolus; Site: left antecubital; mg2 03:09 Follow up: Response: No adverse reaction; IV Status: Completed infusion mg2 Outcome: 03:21 Discharge ordered by MD. rn 03:25 Discharged to home ambulatory, with family. mg2 03:25 Condition: stable 03:25 Discharge instructions given to patient, family, Instructed on discharge instructions, follow up and referral plans. Demonstrated understanding of instructions, follow-up care. 03:27 Patient left the ED. mg2 Addendum: 07/18/2018 09:14 Addendum: Culture Results: Positive urine culture. pt has hx of suprapubic catheter, i w with known ESBL, pt urologist was consulted at time of visit, did not want pt prescribed any new antibiotics,pt was instructed to follow up with urologist. Signatures: Dispatcher [employer] Christelle Luna, RN LETITIA iw Hugo Ann MD MD rn Lowman, John, RN RN jl3 Patricia Gomez kw1 Noemi Valiente Michele RN RN mg2
--- NOTE | 2018-07-14 03:22 | EDPHYS ---
Physician Documentation [facility] Name: Avila Marsh Age: 87 yrs Sex: Male : 1930 Arrival Date: 07/13/2018 Time: 22:34 Bed 28 Private MD: ED Physician Hugo Ann HPI: 07/14 00:53 This 87 yrs old Male presents to ER via EMS with complaints of abdominal pain.rn 00:53 The patient presents with abdominal pain in the lower abdomen. Onset: The rn symptoms/episode began/occurred 5 day(s) ago. The symptoms do not radiate. Associated signs and symptoms: Pertinent positives: nausea, Pertinent negatives: anorexia, blood in stools, diarrhea, dysuria, fever. Modifying factors: The symptoms are alleviated by nothing, the symptoms are aggravated by touching the area. Severity of pain: At its worst the pain was moderate in the emergency department the pain has improved. The patient has not experienced similar symptoms in the past. The patient has been recently seen by a physician:. Reports lower abd pain, stools "like mud", non-bloody, reports started on levaquin and flagyl 5 days ago by urologist, feels like abdomen hurts more, no vomiting, + nausea. . Historical: - Allergies: 07/13 23:35 Ciprofloxacin; mg2 - Home Meds: 23:35 aspirin 81 mg Oral chew 1 tab once daily [Active]; biotin 10,000 mcg Oral tab [Active]; mg2 Fish Oil Oral daily [Active]; hydralazine 75 mg Oral tab 2 times per day [Active]; Magnesium Oxide Oral 400 mg daily [Active]; Multi-Day Oral [Active]; tramadol 50 mg Oral tab three times a day [Active]; Vitamin C Oral [Active]; - PMHx: 23:35 Bladder cancer; DVT; Hypertension; kidney problems; mg2 - PSHx: 23:35 None; mg2 - Immunization history:: Flu vaccine is up to date. - Social history:: Smoking status: Patient/guardian denies using tobacco, Patient/guardian denies using alcohol, street drugs, IV drugs. - Ebola Screening: : No symptoms or risks identified at this time. - Family history:: not pertinent. - Hospitalizations: : No recent hospitalization is reported. ROS: 07/14 00:53 Constitutional: + fever Eyes: Negative for injury, pain, redness, and discharge, ENT: rn Negative for injury, pain, and discharge, Neck: Negative for injury, pain, and swelling, Cardiovascular: Negative for chest pain, palpitations, and edema, Respiratory: Negative for shortness of breath, cough, wheezing, and pleuritic chest pain, Abdomen/GI: + abdominal pain and nausea MS/Extremity: Negative for injury and deformity, Skin: Negative for injury, rash, and discoloration, Neuro: + generalized weakness Exam: 00:53 Constitutional: This is a well developed, well nourished patient who is awake, alert, rn and in no acute distress. Head/Face: Normocephalic, atraumatic. Eyes: Periorbital areas with no swelling, redness, or edema. ENT: MMM Abdomen/GI: soft, mild tenderness LLQ, no rebound, + suprapubic catheter in place. Skin: Warm, dry with normal turgor. Normal color with no rashes, no lesions, and no evidence of cellulitis. MS/ Extremity: Pulses equal, no cyanosis. Neurovascular intact. Full, normal range of motion. Equal circumference. Neuro: Awake and alert, GCS 15, oriented to person, place, time, and situation. Cranial nerves II-XII grossly intact. Motor strength 5/5 in all extremities. Sensory grossly intact. Vital Signs: 07/13 22:45 BP 148 / 81; Pulse 92; Resp 18; Temp 99.8; Pulse Ox 94% on R/A; Weight 74.84 kg; Height mg2 5 ft. 7 in. (170.18 cm); Pain 2/10; 07/14 03:12 BP 117 / 64; Pulse 71; Resp 18; Pulse Ox 96% on R/A; Pain 0/10; mg2 03:25 BP 122 / 67; Pulse 70; Resp 18; Pulse Ox 100% on R/A; Pain 0/10; mg2 07/13 22:45 Body Mass Index 25.84 (74.84 kg, 170.18 cm) mg2 MDM: 07/13 22:35 Patient medically screened. rn 07/14 03:18 Differential diagnosis: diverticulitis, non-specific abd pain, Ureterolithiasis, rn urinary tract infection. Data reviewed: vital signs, nurses notes, lab test result(s), radiologic studies, CT scan, and as a result, I will discharge patient. Counseling: I had a detailed discussion with the patient and/or guardian regarding: the historical points, exam findings, and any diagnostic results supporting the discharge/admit diagnosis, lab results, radiology results, the need for outpatient follow up, to return to the emergency department if symptoms worsen or persist or if there are any questions or concerns that arise at home. Response to treatment: the patient's symptoms have markedly improved after treatment, and as a result, I will discharge patient. Special discussion: I discussed with the patient/guardian in detail that at this point there is no indication for admission to the hospital. It is understood, however, that if the symptoms persist or worsen the patient needs to return immediately for re-evaluation. Based on the history and exam findings, there is no indication for further emergent testing or inpatient evaluation. I discussed with the patient/guardian the need to see the primary care provider for further evaluation of the symptoms. ED course: Pt with no acute findings on CT or blood, + mild dehydration, offered observation in hospital, patient requests more fluids here and dc home as would prefer to go home, urine dirty but patient states told by his urologist would always look dirty, not an acute infection, and told to not take abx if given. Understands return precautions. most likely viral intestinal issue as abx not helping, not a UTI, and + dehydration.. 07/13 22:42 Order name: Basic Metabolic Panel rn 07/13 22:42 Order name: CBC with Diff rn 07/13 22:42 Order name: Hepatic Function rn 07/13 22:42 Order name: Lipase rn 07/13 23:25 Order name: Basic Metabolic Panel; Complete Time: 23:59 EDCT 07/13 23:25 Order name: Liver (Hepatic) Function; Complete Time: 23:59 EDCT 07/13 23:25 Order name: Lipase; Complete Time: 23:59 EDCT 07/13 23:28 Order name: CBC with Automated Diff; Complete Time: 23:59 EDCT 07/14 00:26 Order name: Urine Culture em 07/14 00:26 Order name: Urine Microscopic Only; Complete Time: 01:36 em 07/14 00:27 Order name: Urine Dipstick--Ancillary (enter results) em 07/14 00:29 Order name: Abdomen EDCT 07/13 22:42 Order name: IV Saline Lock; Complete Time: 22:46 rn 07/13 22:42 Order name: Labs collected and sent; Complete Time: 22:46 rn 07/14 00:28 Order name: Urine Dipstick-Ancillary (obtain specimen); Complete Time: 00:29 em1 Administered Medications: 07/13 23:13 Not Given (Patient Refused): Zofran 4 mg IVP once; over 2 minutes mg2 23:13 Drug: NS 0.9% 500 ml Route: IV; Rate: bolus; Site: left antecubital; mg2 07/14 03:09 Follow up: Response: No adverse reaction; IV Status: Completed infusion mg2 00:31 Drug: morphine 4 mg Route: IVP; Site: left antecubital; jl3 01:33 Follow up: Response: No adverse reaction; Marked relief of symptoms mg2 02:19 Drug: NS 0.9% 500 ml Route: IV; Rate: bolus; Site: left antecubital; mg2 03:09 Follow up: Response: No adverse reaction; IV Status: Completed infusion mg2 Disposition: 07/14/18 03:21 Discharged to Home. Impression: Dehydration, Unspecified abdominal pain. - Condition is Stable. - Discharge Instructions: Abdominal Pain, Adult, Dehydration, Adult. - Medication Reconciliation Form, Thank You Letter, Antibiotic Education, Prescription Opioid Use form. - Follow up: Private Physician; When: As needed; Reason: Recheck today's complaints, Re-evaluation by your physician. - Problem is new. - Symptoms have improved. Signatures: Dispatcher [employer] [facility] Hugo Ann MD MD rn Martinez, Eric em1 Chad Redding RN RN jl3 Esa Andrade RN RN mg2 Corrections: (The following items were deleted from the chart) 00:28 07/13 22:43 Abdomen Pelvis W Con+CT.RAD.BRZ ordered. [facility] EDCT 07/14 03:27 03:21 07/14/2018 03:21 Discharged to Home. Impression: Dehydration; Unspecified mg2 abdominal pain. Condition is Stable. Forms are Medication Reconciliation Form, Thank You Letter, Antibiotic Education, Prescription Opioid Use. Follow up: Private Physician; When: As needed; Reason: Recheck today's complaints, Re-evaluation by your physician. Problem is new. Symptoms have improved. rn
[2018-07-14 03:33] VITALS: TEMP 99.8
[2018-07-14 03:36] VITALS: BP 122/67; O2SAT 100
[2018-07-14 05:46] LABS: Urine Blood 1+ (NEG); Urine Glucose NEGATIVE (NEG); Urine Protein 2+ (NEG); Urine Specific Gravity 1.015 (1.005-1.030); Urine pH 5.5 (5.0-7.0)
--- NOTE | 2018-07-14 09:43 | RAD REPORT ---
EXAM DESCRIPTION: CT - Abdomen Pelvis Wo Contrast - 07/14/2018 5:50 am CLINICAL HISTORY: Abdominal pain, loss of appetite, history of diverticulitis A preliminary report was provided at the time of the study and reviewed prior to final report. COMPARISON: CT imaging June 2017 TECHNIQUE: Axial [address] imaging of the abdomen and pelvis was performed without IV contrast. No IV contrast was given because of allergy, abnormal renal function, patient refusal or physician re quest. Oral contrast was given. All CT scans are performed using dose optimization technique as appropriate and may include automated exposure control or mA/KV adjustment according to patient size. FINDINGS: Fibrotic lung changes are present with no acute finding. No pericardial thickening or effu delores. The liver, spleen and pancreas show no suspicious findings on non-contrast imaging. Cholecystectomy c lips are present. No biliary tree dilatation. Renal function cannot be assessed on noncontrast imaging. There is perinephric stranding present incr eased slightly from prior imaging. Patient has very pronounced hydronephrosis and hydroureter. This i s not clearly different from the examination 1 year earlier. Neobladder in the pelvis is noted with s uprapubic Chaudhari catheter. Prostate gland and urinary bladder have been resected. There are numerous s urgical clips along the pelvic floor. No significant adrenal finding. Isodense renal masses and pyel onephritis cannot be excluded in the absence of IV contrast. No gastric dilatation or wall thickening. No acute small bowel finding. Patient has sigmoid diverticu losis and moderate descending colon diverticulosis. No diverticulitis findings. No free air, free flu id or inflammatory stranding. No hernia, mass or bulky lymphadenopathy. Disc and bony degenerative changes are present. IMPRESSION: Diverticulosis involves the descending colon and sigmoid colon. No diverticulitis. Pronounced bilateral hydronephrosis in a patient with neobladder an indwelling suprapubic Chaudhari mono ter. findings are not fully assessed in the absence of IV contrast. However, no significant interval ch jeison noted from June 2017. Pyelonephritis and isodense masses are not excluded. Full assessment is limited is the absence of IV contrast.
== END 2018-07-14 03:27 | disposition home or self-care (01) ==
LOC: ER 22:33
DX: E86.0 Dehydration (principal); I10 Essential (primary) hypertension; Z85.51 Personal history of malignant neoplasm of bladder; Z79.82 Long term (current) use of aspirin; Z88.1 Allergy status to other antibiotic agents
CPT/HCPCS: 36415; 74176; 80048; 80076; 83690; 85025; 87077; 87086; 87088; 87186; 96361; 96374; 99284; J7030; 81003; 81015

== ENCOUNTER 2018-07-20 19:22 | Emergency (ER) | payer OTHER ==
--- OUTSIDE RECORDS SUMMARY | 2018-07-20 19:25 | XMS REPORT | Continuity of Care Document ---
:1930 Author Organization [facility] Care Team Providers Name [...] AETNA - [employer]ATT CHEM[employer] (MEDICARE SUPPLEMENT) AETNA [[id number]] [place]: [employer] AETNA - [place] CHEMICAL (MEDICARE SUPPLEMENT) AETNA [[id number]] [place] [employer] AETNA - [place] CHEMICAL (MEDICARE SUPPLEMENT) AETNA [[id number]] [place] [employer] AETNA - [employer] CHEMICAL (MEDICARE SUPPLEMENT) AETNA [[id number]] [place] [employer] AETNA - [employer]ATT CHEM[employer] (MEDICARE SUPPLEMENT) Encounters Encounter Performer Location Date Office Visit Reg Abrams MD [facility] Apr 06, 2014 Problems Problem Effective Dates [...] 2012Jul 15, platelet count PLATELETS 404 K/CMM 699-455 3004 /mm3 Jul 15, prostate specific PSA < 0.01 0.00-4.00 2012 antigen ng/mL ng/mL Jul 15, carcinoembryonic CEA 14.9 ng/mL 0.0-3.0 High 2013 antigen
--- OUTSIDE RECORDS SUMMARY | 2018-07-20 19:25 | XMS REPORT | Continuity of Care Document ---
:1930 Author Organization [facility] Care Team Providers Name Role Phone [...] AETNA - MATT CHEMICAL (MEDICARE SUPPLEMENT) AETNA [[id number]] [place] [employer] AETNA - MATT CHEMICAL (MEDICARE SUPPLEMENT) AETNA [[id number]] [place] [employer] AETNA - [employer]ATT CHEMICAL (MEDICARE SUPPLEMENT) AETNA [[id number]] [place] [employer] AETNA - [employer]ATT CHEMICAL (MEDICARE SUPPLEMENT) AETNA [[id number]] [place] [employer] AETNA - [employer] CHEM[employer] (MEDICARE SUPPLEMENT) Encounters Encounter Performer Location Date Lab Report Reg Abrams MD [facility] Apr 06, 2014 Problems Problem Effective Dates [...] 2012Jul 15, platelet count PLATELETS 404 K/CMM 131-278 9006 /mm3 Apr 06, cholesterol, serum CHOLESTEROL 160 [...]
--- OUTSIDE RECORDS SUMMARY | 2018-07-20 19:25 | XMS REPORT | Clinical Summary ---
:1930 Author Organization [facility] Address [address] [place] [address] Care Team Providers Name Role Phone Reg [...] INFLUENZA VACCINE 03/13/2018 Results Not on fileafter 07/19/2017 Insurance Payer Benefit Plan / Group Subscriber ID Type Phone Address AETNA MEDICARE AETNA MEDICARE HMO/PPO [facility] xxxxxxxx HMO Advance Directives Patient has advance care planning documents on file. For more information, please contact:[facility] [place] [address]
--- OUTSIDE RECORDS SUMMARY | 2018-07-20 19:25 | XMS REPORT | Continuity of Care Document ---
[...] with food. 14 Group DOXYCYCLINE one bid Active 04/06/20 Medical MONOHYDRATE 14 Group 100 MG CAPS DOXYCYCLINE one bid No Longer 04/06/20 Medical MONOHYDRATE Active 14 Group 100 MG CAPS TRIAMTERENE-HC one [...] Group Vax) has been administered influenza 06/11/2012 [facility] Medical immunization (Flu Group Vax) has been administered influenza 08/17/2009 [facility] Medical immunization (Flu Group Vax) has been administered influenza 04/15/2009 [facility] Medical immunization (Flu Group Vax) has been administered influenza 05/14/2008 [facility] Medical immunization (Flu Group Vax) has been administered influenza 05/24/2007 [facility] Medical immunization (Flu Group Vax) has been administered pneumococcal 09/18/2006 [facility] Medical immunization Group administered Results Order [...] Chemistry BUN/CREAT 18 6 - 25 2014 [facility] Group Chemistry ALBUMIN 5.0 3.5 - 5.0 [...] Type Number For Provider Date Date Visit [facility] Lab Report [id number] Radha 04/06 04/06 Chidi 420 [facility] Office [id number] Radha04/06 [place] Visit 520 [facility] Office [phone] 04/09 [place] Visit 810 [facility] Office [id number] Radha06/24 [place] Visit 690 [facility] Office [phone] Radha12/25 [place] Visit 550 [facility] Medical Medical MD Group Group [facility] Office [phone] Radha 01/25 01/25 [place] Visit 680 [facility] Outpatient [id number] RADHA 05/[address] [facility] [place] Outpatient [id number] RADHA 07/[address] [facility] Outpatient [id number] RADHA 08/19 [facility] [place] Outpatient [id number] RADHA08/26 [facility] [place] Outpatient [id number] RADHA 09/15 [facility] [place] Outpatient [id number] RADHA 11/04 [facility] [place] Outpatient [id number] RADHA12/27 [facility] [place] Procedures Procedure Code Date Perfomer Comments Source colonoscopy 14982 01/16/2012 [facility] colonoscopy 30797 01/16/2012 [facility] bone density 4002.65 07/13/2003 [facility]
--- OUTSIDE RECORDS SUMMARY | 2018-07-20 19:26 | XMS REPORT | Continuity of Care Document ---
:1930 Author Organization [facility] Care Team Providers Name Role Phone MD [...] AETNA - MATT CHEMICAL (MEDICARE SUPPLEMENT) AETNA [[id number]] MED[place]: [employer] AETNA - MATT CHEMICAL (MEDICARE SUPPLEMENT) AETNA [[id number]] MEDIC[place]: [employer] AETNA - MATT CHEMICAL (MEDICARE SUPPLEMENT) AETNA [[id number]] MEDIC[place]: [employer] AETNA - MATT CHEMICAL (MEDICARE SUPPLEMENT) AETNA [[id number]] MED[place]: [employer] AETNA - MATT CHEMICAL (MEDICARE SUPPLEMENT) AETNA [[id number]] MED[place]: [employer] AETNA - MATT CHEMICAL (MEDICARE SUPPLEMENT) AETNA [[id number]] MED[place]: [employer] AETNA - MATT CHEMICAL (MEDICARE SUPPLEMENT) AETNA [[id number]] [place]: [employer] AETNA - MATT CHEMICAL (MEDICARE SUPPLEMENT) AETNA (MEDICARE REPLACEMENT BRENDAN PPO) AETNA [[id number]] [place]: [employer] AETNA - MATT CHEMICAL (MEDICARE SUPPLEMENT) AETNA [[id number]] MEDIC[place]: [employer] AETNA - MATT CHEMICAL (MEDICARE SUPPLEMENT) Encounters Encounter Performer Location Date Office Visit Reg Abrams MD [facility] December 25, 2014 Problems Problem Effective Dates [...] 2012Jul 15, platelet count PLATELETS 404 K/CMM 860-952 0520 /mm3 Apr 06, cholesterol, serum CHOLESTEROL 160 [...]
--- OUTSIDE RECORDS SUMMARY | 2018-07-20 19:26 | XMS REPORT | Continuity of Care Document ---
:[address] [facility] Care Team Providers Name Role [...] AETNA - MATT CHEMICAL (MEDICARE SUPPLEMENT) AETNA [[id number]] [place]: [employer] AETNA - MATT CHEMICAL (MEDICARE SUPPLEMENT) AETNA [[id number]] MED[place]: [employer] AETNA - MATT CHEMICAL (MEDICARE SUPPLEMENT) AETNA [[id number]] MED[place]: [employer] AETNA - MATT CHEMICAL (MEDICARE SUPPLEMENT) AETNA [[id number]] MED[place]: [employer] AETNA - MATT CHEMICAL (MEDICARE SUPPLEMENT) AETNA [[id number]] MED[place]: [employer] AETNA - MATT CHEMICAL (MEDICARE SUPPLEMENT) AETNA [[id number]] MED[place]: [employer] AETNA - MATT CHEMICAL (MEDICARE SUPPLEMENT) AETNA [[id number]] MED[place]: [employer] AETNA - MATT CHEMICAL (MEDICARE SUPPLEMENT) Encounters Encounter Performer Location Date Office Visit Reg Abrams MD [facility] Jun 24, 2014 Problems Problem Effective Dates [...] 2012Jul 15, platelet count PLATELETS 404 K/CMM 613-605 1775 /mm3 Apr 06, cholesterol, serum CHOLESTEROL 160 [...]
--- OUTSIDE RECORDS SUMMARY | 2018-07-20 19:26 | XMS REPORT | Continuity of Care Document ---
:1930 Author Organization [facility] Care Team Providers Name Role Phone MD [...] AETNA - MATT CHEMICAL (MEDICARE SUPPLEMENT) AETNA [[id number]] [place]: [employer] AETNA - MATT CHEMICAL (MEDICARE SUPPLEMENT) AETNA [[id number]] MED[place]: [employer] AETNA - MATT CHEMICAL (MEDICARE SUPPLEMENT) AETNA [[id number]] MEDIC[place]: [employer] AETNA - MATT CHEMICAL (MEDICARE SUPPLEMENT) AETNA [[id number]] MEDIC[place]: [employer] AETNA - MATT CHEMICAL (MEDICARE SUPPLEMENT) AETNA [[id number]] MED[place]: [employer] AETNA - MATT CHEMICAL (MEDICARE SUPPLEMENT) AETNA [[id number]] MEDIC[place]: [employer] AETNA - MATT CHEMICAL (MEDICARE SUPPLEMENT) AETNA [[id number]] MEDIC[place]: [employer] AETNA - MATT CHEMICAL (MEDICARE SUPPLEMENT) AETNA (MEDICARE REPLACEMENT BRENDAN PPO) AETNA [[id number]] MEDIC[place]: [employer] AETNA - MATT CHEMICAL (MEDICARE SUPPLEMENT) AETNA [[id number]] MEDICARE [place]: [employer] AETNA - MATT CHEMICAL (MEDICARE SUPPLEMENT) AETNA [[id number]] MEDIC[place]: [employer] AETNA - MATT CHEMICAL (MEDICARE SUPPLEMENT) Encounters Encounter Performer Location Date Office Visit Reg Abrams MD [facility] Jan 25, 2015 Problems Problem Effective Dates [...] 2012Jul 15, platelet count PLATELETS 404 K/CMM 462-448 2069 /mm3 Apr 06, cholesterol, serum CHOLESTEROL 160 [...]
--- OUTSIDE RECORDS SUMMARY | 2018-07-20 19:26 | XMS REPORT | Continuity of Care Document ---
:1930 Author Organization [facility] Care Team Providers Name Role Phone MD [...] AETNA - MATT CHEMICAL (MEDICARE SUPPLEMENT) AETNA [[id number]] [place]: [employer] AETNA - MATT CHEMICAL (MEDICARE SUPPLEMENT) AETNA [[id number]] MEDICARE [place]: [employer] AETNA - MATT CHEMICAL (MEDICARE SUPPLEMENT) AETNA [[id number]] MED[place]: [employer] SOLUTIONS AETNA - MATT CHEMICAL (MEDICARE SUPPLEMENT) AETNA [[id number]] MED[place]: [employer] AETNA - MATT CHEMICAL (MEDICARE SUPPLEMENT) Encounters Encounter Performer Location Date Office Visit Reg Abrams MD [facility] Apr 09, 2014 Problems Problem Effective Dates [...] 2012Jul 15, platelet count PLATELETS 404 K/CMM 325-503 5017 /mm3 Apr 06, cholesterol, serum CHOLESTEROL 160 [...]
--- OUTSIDE RECORDS SUMMARY | 2018-07-20 19:27 | XMS REPORT | Continuity of Care Document ---
:1930 Author Organization [facility] Care Team Providers Name Role Phone MD [...] AETNA - MATT CHEMICAL (MEDICARE SUPPLEMENT) AETNA [[id number]] MED[place]: [employer] AETNA - MATT CHEMICAL (MEDICARE SUPPLEMENT) AETNA [[id number]] MED[place]: [employer] AETNA - MATT CHEMICAL (MEDICARE SUPPLEMENT) AETNA [[id number]] [place]: [employer] SOLUT[employer] AETNA - MATT CHEMICAL (MEDICARE SUPPLEMENT) AETNA [[id number]] MED[place]: [employer] AETNA - MATT CHEMICAL (MEDICARE SUPPLEMENT) AETNA [[id number]] [place]: [employer] SOLUTIONS AETNA - MATT CHEMICAL (MEDICARE SUPPLEMENT) AETNA [[id number]] [place]: [employer] SOLUT[employer] AETNA - MATT CHEMICAL (MEDICARE SUPPLEMENT) AETNA [[id number]] MED[place]: [employer] AETNA - MATT CHEMICAL (MEDICARE SUPPLEMENT) AETNA (MEDICARE REPLACEMENT BRENDAN PPO) AETNA [[id number]] MED[place]: [employer] AETNA - MATT CHEMICAL (MEDICARE SUPPLEMENT) AETNA [[id number]] [place]: [employer] SOLUTIONS AETNA - MATT CHEMICAL (MEDICARE SUPPLEMENT) AETNA [[id number]] [place]: [employer] AETNA - MATT CHEMICAL (MEDICARE SUPPLEMENT) Encounters Encounter Performer Location Date Office Visit Reg Arbams MD [facility] Jan 25, 2015 Problems Problem Effective Dates [...] 2012Jul 15, platelet count PLATELETS 404 K/CMM 220-215 1999 /mm3 Jan 25, hemoglobin, blood HGB 13.5 g/dL 14.0-18.0 Low 2014Jan 25, hematocrit, blood HCT 39.8 % 42.0-54.0 Low 2014Jan 25, platelet count PLATELETS 308 K/CMM 078-882 9937 /mm3 Apr 06, cholesterol, serum CHOLESTEROL 160 [...] Jan 25, sodium, serum SODIUM 141 MEQ/L 019-486 4166 mmol/L Jan 25, potassium, serum POTASSIUM 4.9 [...]
[2018-07-20] MEDS ORDERED: CEFTRIAXONE 1000 MG/VIAL ONE (20:05)
[2018-07-20] MEDS ORDERED: NA CHLORIDE 0.9% 1,000 ML ONE (20:05)
[2018-07-20] MEDS ORDERED: NA CHLORIDE 0.9% 50 ML IV ONE (20:05)
[2018-07-20 20:55] LABS: Absolute Lymphocytes (CBC) 0.4 K/uL (0.7-4.9); Absolute Monocytes 1.1 K/uL (0.1-1.3); Absolute Neutrophil 13.4 K/uL (1.8-8.0); Basophils % 0.4 % (0-1.3); Eosinophils % 0.8 % (0-4.4); Hematocrit 24.8 % (39.6-49.0); Lymphocytes % 2.9 % (15.3-44.8); MCH 32.7 pg (27.0-35.0); MCV 96.8 fL (80-100); MPV 7.6 fL (7.6-11.3); Monocytes % 7.1 % (3.3-12.3); RBC Red Blood Cell Count 2.56 M/uL (4.33-5.43)
[2018-07-20 21:11] LABS: Bilirubin Total 0.3 mg/dL (0.2-1.0); Potassium 4.4 mmol/L (3.5-5.1); Protein, Total 7.7 g/dL (6.4-8.2)
[2018-07-20 21:19] LABS: Urine White Blood Cell Casts OK
[2018-07-20 21:20] LABS: Blood Morphology Comment NOTED (NOT SEEN); Hypochromasia 1+; Platelet Estimate INCR; Platelets, Giant NOTED; Polychromasia SLIGHT; Rouleau NOTED
--- NOTE | 2018-07-20 22:03 | RAD REPORT ---
EXAM DESCRIPTION: CT - Abdomen Pelvis Wo Contrast - 07/20/2018 9:30 pm CLINICAL HISTORY: Abdominal pain COMPARISON: July 14, 2018 TECHNIQUE: Computed axial tomography of the abdomen and pelvis was obtained. IV and oral contrast we re not requested. All CT scans are performed using dose optimization technique as appropriate and may include automated exposure control or mA/KV adjustment according to patient size. FINDINGS: The evaluation of solid organs, vessels and bowel is limited secondary to the lack of con trast administration. The liver, spleen, pancreas, and adrenal appear grossly normal. Marked hydronephrosis and hydroureter is unchanged. Bladder has been resected with a neobladder prese nt. Suprapubic catheter is present within the neobladder. Diverticula stem from the colon without evidence of diverticulitis. IMPRESSION: Marked hydronephrosis and hydroureter may be secondary to a stricture between the dista l ureter and neobladder. Diverticulosis without diverticulitis
--- NOTE | 2018-07-20 22:04 | RAD REPORT ---
EXAM DESCRIPTION: Aishwarya Single View07/20/2018 9:10 pm CLINICAL HISTORY: Fever COMPARISON: April 2018 FINDINGS: The lungs appear clear of acute infiltrate. The heart is normal size IMPRESSION: No acute abnormalities displayed
[2018-07-20] MEDS ORDERED: PIPER/TAZO/NS 3.375gm 3.375 GM/100 ML BAG ONE (23:29)
[2018-07-21 00:02] LABS: Urine Bacteria >50 /HPF (NONE SEEN); Urine Culture Reflex Order NOT NEEDED
--- NOTE | 2018-07-21 00:37 | EDPHYS ---
Physician Documentation [facility] Name: Avila Marsh Age: 87 yrs Sex: Male : 1930 Arrival Date: 07/20/2018 Time: 19:28 Bed 15 Private MD: ED Physician Tulio Hebert HPI: 07/20 20:19 This 87 yrs old Male presents to ER via EMS with complaints of Abdominal ps1 Pain, chills. 20:19 Patient was seen and evaluated for the same a week ago and diagnosed with ps1 diverticulosis without itis. He is now having the same pain but with increased frequency over the last couple of days. He was not given abx last visit. He now has a fever and is tachycardic. No urinary complaints. No hematochezia. . Historical: - Allergies: 19:37 Ciprofloxacin; jd3 - Home Meds: 19:37 aspirin 81 mg Oral chew 1 tab once daily [Active]; biotin 10,000 mcg Oral tab [Active]; jd3 Fish Oil Oral daily [Active]; hydralazine 75 mg Oral tab 2 times per day [Active]; Magnesium Oxide Oral 400 mg daily [Active]; Multi-Day Oral [Active]; tramadol 50 mg Oral tab three times a day [Active]; Vitamin C Oral [Active]; Coumadin Oral [Active]; loratadine oral oral [Active]; amlodipine oral [Active]; Hydrochlorothiazide Oral [Active]; - PMHx: 19:37 Bladder cancer; kidney problems; DVT; Hypertension; jd3 - PSHx: 19:37 shoulder sx; Cholecystectomy; bladder sx; Appendectomy; jd3 - Immunization history:: Adult Immunizations up to date. - Social history:: Smoking status: unknown. - Ebola Screening: : Patient negative for fever greater than or equal to 101.5 degrees Fahrenheit, and additional compatible Ebola Virus Disease symptoms. ROS: 20:19 Cardiovascular: Negative for chest pain, palpitations, and edema, Respiratory: Negative ps1 for shortness of breath, cough, wheezing, and pleuritic chest pain, Back: Negative for injury and pain, MS/Extremity: Negative for injury and deformity, Skin: Negative for injury, rash, and discoloration, Neuro: Negative for headache, weakness, numbness, tingling, and seizure, Psych: Negative for depression, anxiety, suicide ideation, homicidal ideation, and hallucinations. 20:19 Constitutional: Positive for body aches, chills, fatigue, fever. 20:19 Abdomen/GI: Positive for abdominal pain. Exam: 20:19 Constitutional: This is a well developed, well nourished patient who is awake, alert, ps1 and in no acute distress. Head/Face: Normocephalic, atraumatic. Eyes: Pupils equal round and reactive to light, extra-ocular motions intact. Lids and lashes normal. Conjunctiva and sclera are non-icteric and not injected. Chest/axilla: Normal chest wall appearance and motion. Nontender with no deformity. No lesions are appreciated. Respiratory: Lungs have equal breath sounds bilaterally, clear to auscultation and percussion. No rales, rhonchi or wheezes noted. No increased work of breathing, no retractions or nasal flaring. Skin: Warm, dry with normal turgor. Normal color with no rashes, no lesions, and no evidence of cellulitis. 20:19 Cardiovascular: Rate: tachycardic, Rhythm: regular, Pulses: no pulse deficits are appreciated. 20:19 Abdomen/GI: Inspection: abdomen appears normal, Bowel sounds: normal, Palpation: mild abdominal tenderness, in the left lower quadrant. Vital Signs: 19:37 BP 146 / 68; Pulse 103; Resp 18 S; Temp 101.0(O); Pulse Ox 93% on R/A; Weight 74.84 kg jd3 (R); Height 5 ft. 7 in. (170.18 cm) (R); Pain 1/10; 20:05 BP 122 / 62; Pulse 98; Resp 19 S; Pulse Ox 93% on R/A; cc3 21:37 BP 139 / 68; Pulse 92; Resp 18 S; Pulse Ox 96% on R/A; cc3 22:23 BP 124 / 62; Pulse 71; Resp 18 S; Temp 99.2(O); Pulse Ox 97% on R/A; cc3 23:30 BP 114 / 61; Pulse 69; Resp 19 S; Pulse Ox 95% on R/A; cc3 07/21 00:33 BP 113 / 58; Pulse 66; Resp 19 S; Temp 99.6(O); Pulse Ox 95% on R/A; cc3 01:45 BP 115 / 67; Pulse 67; Resp 17 S; Pulse Ox 95% on R/A; cc3 02:10 BP 112 / 64; Pulse 66; Resp 19 S; Pulse Ox 95% on R/A; cc3 07/20 19:37 Body Mass Index 25.84 (74.84 kg, 170.18 cm) jd3 MDM: 07/20 20:10 Patient medically screened. ps1 22:08 Data reviewed: vital signs, nurses notes. ED course: Asked about the administration of ps1 IV contrast and agreed to provide IV contrast. Dat dong and Dr. Moore refused based off of kidney function. Exam limited 2/ lack of contrast administration. . 07/20 19:49 Order name: CBC with Diff [facility] 07/20 19:49 Order name: Creatinine for Radiology; Complete Time: 21:19 ps1 07/20 19:49 Order name: Lipase; Complete Time: 21:19 ps1 07/20 19:49 Order name: CMP; Complete Time: 21:19 [facility] 07/20 19:49 Order name: Blood Culture Adult (2) ps1 07/20 19:49 Order name: CBC with Automated Diff; Complete Time: 21:36 EDMS 07/20 20:23 Order name: CXR XRAY; Complete Time: 22:06 [facility] 08 21:03 Order name: CBC Smear Scan; Complete Time: 21:36 EDMS 07/20 21:16 Order name: Abdomen ; Complete Time: 22:07 EDMS 08 23:38 Order name: Urine Culture 3 07/20 23:38 Order name: Urine Microscopic Only; Complete Time: 00:03 cc3 07/20 19:49 Order name: IV Saline Lock; Complete Time: 20:47 [facility] 07/20 19:49 Order name: Labs collected and sent; Complete Time: 20:47 [facility] 07/20 19:49 Order name: Urine Dipstick-Ancillary (obtain specimen); Complete Time: 23:30 ps1 Administered Medications: 20:40 Drug: NS 0.9% 1000 ml Route: IV; Rate: 1 bolus; Site: left forearm; cc3 22:00 Follow up: Response: No adverse reaction; IV Status: Completed infusion; IV Intake: cc3 1000ml 20:40 Drug: Rocephin - (cefTRIAXone) 1 grams Route: IVPB; Infused Over: 30 mins; Site: left cc3 forearm; 21:00 Follow up: Response: No adverse reaction; IV Status: Completed infusion; IV Intake: [id number] 23:20 Drug: Zosyn 3.375 grams Route: IVPB; Infused Over: 60 mins; Site: left forearm; cc3 07/21 00:30 Follow up: Response: No adverse reaction; IV Status: Completed infusion; IV Intake: cc3 100ml Disposition: 07/21/18 00:35 Transfer ordered to [facility]. Diagnosis are Urinary stricture, Abdominal pain, Acute cystitis, SIRS/SEpsis. - Reason for transfer: Higher level of care. - Accepting physician is Jovita. - Condition is Stable. - Problem is new. - Symptoms are unchanged. Signatures: Dispatcher [employer] Sánchez Napoles RN RN jd3 Tulio Hebert MD MD ps1 Jaz Short cc3 Corrections: (The following items were deleted from the chart) 07/20 21:16 19:50 Abdomen Pelvis W Con+CT.RAD.BRZ ordered. [facility] 07/21 02:25 00:35 07/21/2018 00:35 Transfer ordered to [facility]. Diagnosis is cc3 Urinary stricture; Abdominal pain; Acute cystitis; SIRS/SEpsis. Reason for transfer: Higher level of care. Accepting physician is Jovita. Condition is Stable. Problem is new. Symptoms are unchanged. ps1
--- NOTE | 2018-07-21 00:37 | ER ---
Nurse's Notes [facility] Name: Avila Marsh Age: 87 yrs Sex: Male : 1930 Arrival Date: 07/20/2018 Time: 19:28 Bed 15 Private MD: Diagnosis: Urinary stricture;Abdominal pain;Acute cystitis;SIRS/SEpsis Presentation: 07/20 19:29 Presenting complaint: EMS states: "Today he is having abdominal pain and chills with jd3 general weakness. He was recently come about a week ago for similar symptoms in which he was diagnosed with diverticulitis. We started IVs and gave some fluids and pain medications today.". Transition of care: patient was not received from another setting of care. Onset of symptoms was July 20, 2018. Risk Assessment: Do you want to hurt yourself or someone else? Patient reports no desire to harm self or others. Initial Sepsis Screen: Does the patient meet any 2 criteria? Temp <36.0*C (96.8*F)) or > 38.3*C (100.9*F). HR > 90 bpm. Yes Does the patient have a suspected source of infection? No. Patient's initial sepsis screen is negative. Care prior to arrival: Medication(s) given: Normal saline infusion, 100 ml zofran 4 mg, Fentanyl 75 mcg IV initiated. 18 GA, 22 GA, in the left in the right antecubital area, wrist. 19:29 Method Of Arrival: EMS: [facility] jd3 19:29 Acuity: ANA 3 jd3 Historical: - Allergies: 19:37 Ciprofloxacin; jd3 - Home Meds: 19:37 aspirin 81 mg Oral chew 1 tab once daily [Active]; biotin 10,000 mcg Oral tab [Active]; jd3 Fish Oil Oral daily [Active]; hydralazine 75 mg Oral tab 2 times per day [Active]; Magnesium Oxide Oral 400 mg daily [Active]; Multi-Day Oral [Active]; tramadol 50 mg Oral tab three times a day [Active]; Vitamin C Oral [Active]; Coumadin Oral [Active]; loratadine oral oral [Active]; amlodipine oral [Active]; Hydrochlorothiazide Oral [Active]; - PMHx: 19:37 Bladder cancer; kidney problems; DVT; Hypertension; jd3 - PSHx: 19:37 shoulder sx; Cholecystectomy; bladder sx; Appendectomy; jd3 - Immunization history:: Adult Immunizations up to date. - Social history:: Smoking status: unknown. - Ebola Screening: : Patient negative for fever greater than or equal to 101.5 degrees Fahrenheit, and additional compatible Ebola Virus Disease symptoms. Screenin:30 Abuse screen: Denies threats or abuse. Denies injuries from another. Nutritional cc3 screening: No deficits noted. Tuberculosis screening: No symptoms or risk factors identified. Fall Risk Ambulatory Aid- None/Bed Rest/Nurse Assist (0 pts). Gait- Normal/Bed Rest/Wheelchair (0 pts) Mental Status- Oriented to own ability (0 pts). Assessment: 19:30 General: Appears in no apparent distress. comfortable, Behavior is calm, cooperative, cc3 appropriate for age. Pain: Complains of pain in left lower quadrant. Neuro: Level of Consciousness is awake, alert, obeys commands, Oriented to person, place, time, situation, Appropriate for age. Cardiovascular: Denies chest pain. Respiratory: Airway is patent Respiratory effort is even, unlabored, Respiratory pattern is regular, symmetrical. GI: Bowel sounds present X 4 quads. Abd is soft and non tender X 4 quads. : No signs and/or symptoms were reported regarding the genitourinary system. suprapubic catheter in place Fr. 24. EENT: No signs and/or symptoms were reported regarding the EENT system. Derm: No signs and/or symptoms reported regarding the dermatologic system. Musculoskeletal: Circulation, motion, and sensation intact. Range of motion: intact in all extremities. 20:25 Reassessment: Patient appears in no apparent distress at this time. Patient and/or cc3 family updated on plan of care and expected duration. Pain level reassessed. Patient is alert, oriented x 3, equal unlabored respirations, skin warm/dry/pink. 21:10 Reassessment: Patient appears in no apparent distress at this time. Patient and/or cc3 family updated on plan of care and expected duration. Pain level reassessed. Patient is alert, oriented x 3, equal unlabored respirations, skin warm/dry/pink. 21:40 Reassessment: Patient came back from CT scan department and he asked the CT scan cc3 oscillograph technician to check his wallet in their department because he might have lost it there for he is not sure if he lost it there or if he left it at home as he said and so the agricultural engineering technicians informed him that she will check her department if the patient might have dropped his wallet there somewhere. 22:00 Reassessment: One of the CT scan technicians came back and informed the patient that cc3 they did not find any wallet in their department where the patient has been. 22:20 Reassessment: Patient appears in no apparent distress at this time. Patient and/or cc3 family updated on plan of care and expected duration. Pain level reassessed. Patient is alert, oriented x 3, equal unlabored respirations, skin warm/dry/pink. 23:18 Reassessment: Patient appears in no apparent distress at this time. Patient and/or cc3 family updated on plan of care and expected duration. Pain level reassessed. Patient is alert, oriented x 3, equal unlabored respirations, skin warm/dry/pink. 07/21 00:36 Reassessment: Patient appears in no apparent distress at this time. Patient and/or cc3 family updated on plan of care and expected duration. Pain level reassessed. Patient is alert, oriented x 3, equal unlabored respirations, skin warm/dry/pink. 00:45 Reassessment: Patient for transfer to [facility], called for report but the cc3 radio operator ground said to call back after 15 minutes, in charge Nirali chao. 01:00 Reassessment: Patient appears in no apparent distress at this time. Patient and/or cc3 family updated on plan of care and expected duration. Pain level reassessed. Patient is alert, oriented x 3, equal unlabored respirations, skin warm/dry/pink. Patient said he doesn't want to be transferred to [facility] because his doctor is in [place], Dr. Hebert informed and said that he already explained to the patient that [place] denied transfer and only [facility] accepted the transfer of the patient, in charge Nirali oropeza. 01:40 Reassessment: Dr. Hebert spoke again with the patient and convinced him for transfer. cc3 Report called to LETITIA Higginbotham for continuity of care. 02:20 Reassessment: Patient appears in no apparent distress at this time. Patient and/or cc3 family updated on plan of care and expected duration. Pain level reassessed. Patient is alert, oriented x 3, equal unlabored respirations, skin warm/dry/pink. [facility] came to fetch the patient for transfer. Patient left ER vitally stable by EMS stretcher, no valuables left in the patient's room. Vital Signs: 07/20 19:37 BP 146 / 68; Pulse 103; Resp 18 S; Temp 101.0(O); Pulse Ox 93% on R/A; Weight 74.84 kg jd3 (R); Height 5 ft. 7 in. (170.18 cm) (R); Pain 1/10; 20:05 BP 122 / 62; Pulse 98; Resp 19 S; Pulse Ox 93% on R/A; cc3 21:37 BP 139 / 68; Pulse 92; Resp 18 S; Pulse Ox 96% on R/A; cc3 22:23 BP 124 / 62; Pulse 71; Resp 18 S; Temp 99.2(O); Pulse Ox 97% on R/A; cc3 23:30 BP 114 / 61; Pulse 69; Resp 19 S; Pulse Ox 95% on R/A; cc3 07/21 00:33 BP 113 / 58; Pulse 66; Resp 19 S; Temp 99.6(O); Pulse Ox 95% on R/A; cc3 01:45 BP 115 / 67; Pulse 67; Resp 17 S; Pulse Ox 95% on R/A; cc3 02:10 BP 112 / 64; Pulse 66; Resp 19 S; Pulse Ox 95% on R/A; cc3 07/20 19:37 Body Mass Index 25.84 (74.84 kg, 170.18 cm) jd3 ED Course: 07/20 19:28 Patient arrived in ED. jd3 19:29 Jaz Short is Primary Nurse. cc3 19:30 Arm band placed on right wrist. cc3 19:30 Maintain EMS IV. Dressing intact. Good blood return noted. Site clean \\T\\ dry. Gauge \\T\\ cc 3 site: 18 right ACV. 19:32 Triage completed. jd3 19:34 Tulio Hebert MD is Attending Physician. ps1 19:38 Patient has correct armband on for positive identification. Placed in gown. Bed in low jd3 position. Call light in reach. Side rails up X 1. 20:30 Inserted saline lock: 20 gauge in left forearm, using aseptic technique. Blood cc3 collected. inserted by solar lab technician Juan Francisco. 21:10 X-ray completed. Portable x-ray completed in exam room. Patient tolerated procedure la2 well. 21:11 CXR XRAY In Process Unspecified. EDMS 21:28 CT completed. Patient tolerated procedure well. Patient moved back from CT. bq 21:31 Abdomen In Process Unspecified. EDMS 12 02:20 No provider procedures requiring assistance completed. Patient transferred, IV remains cc3 in place. Administered Medications: 07/20 20:40 Drug: NS 0.9% 1000 ml Route: IV; Rate: 1 bolus; Site: left forearm; cc3 22:00 Follow up: Response: No adverse reaction; IV Status: Completed infusion; IV Intake: cc3 1000ml 20:40 Drug: Rocephin - (cefTRIAXone) 1 grams Route: IVPB; Infused Over: 30 mins; Site: left cc3 forearm; 21:00 Follow up: Response: No adverse reaction; IV Status: Completed infusion; IV Intake: [id number] 23:20 Drug: Zosyn 3.375 grams Route: IVPB; Infused Over: 60 mins; Site: left forearm; cc3 07/21 00:30 Follow up: Response: No adverse reaction; IV Status: Completed infusion; IV Intake: cc3 100ml Intake: 07/20 21:00 IV: 50ml; Total: 50ml. cc3 22:00 IV: 1000ml; Total: 1050ml. cc3 07/21 00:30 IV: 100ml; Total: 1150ml. cc3 Outcome: 00:35 ER care complete, transfer ordered by . ps1 01:40 Transferred by ground EMS to [facility], Transfer form completed. cc3 01:40 Condition: stable 01:40 Instructed on the need for transfer, Demonstrated understanding of instructions. 02:25 Patient left the ED. cc3 Signatures: Dispatcher [employer] EDMS Rosita Vazquez Leslie la2 Sánchez Alba RN RN jd3 Singer, Phillip, MD MD ps1 Jaz Short cc3 Corrections: (The following items were deleted from the chart) 00:38 08 19:30 : No signs and/or symptoms were reported regarding the genitourinary cc3 system. cc3 07/21 03:39 01:00 Reassessment: Patient appears in no apparent distress at this time. Patient cc3 and/or family updated on plan of care and expected duration. Pain level reassessed. Patient is alert, oriented x 3, equal unlabored respirations, skin warm/dry/pink. Patient said he doesn't want to be transferred to [facility] because his doctor is in [place], Dr. Hebert cc3 03:42 01:00 Reassessment: Patient appears in no apparent distress at this time. Patient cc3 and/or family updated on plan of care and expected duration. Pain level reassessed. Patient is alert, oriented x 3, equal unlabored respirations, skin warm/dry/pink. Patient said he doesn't want to be transferred to [facility] because his doctor is in [place], Dr. Hebert informed and said that he already explained to the patient that [place] denied transfer and only [facility] accepted the transfer of the patient. cc3 03:52 02:20 Reassessment: Patient appears in no apparent distress at this time. Patient cc3 and/or family updated on plan of care and expected duration. Pain level reassessed. Patient is alert, oriented x 3, equal unlabored respirations, skin warm/dry/pink. [facility] came to fetch the patient for transfer. Patient left ER vitally stable by EMS stretcher. cc3
[2018-07-21 02:37] VITALS: O2SAT 95
[2018-07-21 02:38] VITALS: BP 113/58; TEMP 99.6
== END 2018-07-21 02:25 | disposition short-term general hospital (02) ==
LOC: ER 19:22
DX: N30.00 Acute cystitis without hematuria (principal); N35.919 Unspecified urethral stricture, male, unspecified site; A41.89 Other specified sepsis; I10 Essential (primary) hypertension; Z79.01 Long term (current) use of anticoagulants; Z79.82 Long term (current) use of aspirin; Z88.1 Allergy status to other antibiotic agents; Z85.51 Personal history of malignant neoplasm of bladder; Z86.718 Personal history of other venous thrombosis and embolism
CPT/HCPCS: 36415; 71045; 74176; 80053; 81015; 83690; 85025; 87040 ×2; 87077 ×2; 87086; 87088; 87186 ×2; 87205; 96361; 96365; 96367; 99285; J2543; J7030

== ENCOUNTER 2018-11-25 22:27 | Emergency (ER) | payer OTHER ==
--- OUTSIDE RECORDS SUMMARY | 2018-11-25 22:29 | XMS REPORT | Clinical Summary ---
:1930 [address] [facility] Address [address] [place] [address] Care Team Providers Name Role Phone Reg [...] Health Maintenance Due Date Last Done Comments SHINGLES VACCINES (#1) 1982 65+ PNEUMOCOCCAL VACCINE (1 of 2 - PCV13) 1997 PNEUMOCOCCAL POLYSACCHARIDE VACCINE AGE 65 AND OVER 1997 INFLUENZA VACCINE 03/13/2019 Results Not on fileafter 11/24/2017 Insurance Payer Benefit Plan / Group Subscriber ID Type Phone Address AETNA MEDICARE AETNA MEDICARE HMO/PP[facility] xxxxxxxx HMO Advance Directives Patient has advance care planning documents on file. For more information, please contact:[facility] [place] [address]
--- OUTSIDE RECORDS SUMMARY | 2018-11-25 22:30 | XMS REPORT | Clinical Summary ---
:1930 Author Organization [facility] Address [address] [place] [address] Care Team Providers Name Role Phone Unknownmeds, Provider Primary Care Provider Unavailable Allergies Active Allergy Reactions Severity Noted Date Comments Ciprofloxacin Other (See Comments) High 07/21/2018 Joint pain Medications Medication Sig Dispensed Refills Start End Status Date Date aspirin 81 MG chewable Take 81 mg by 0 Active tablet mouth daily. biotin 10,000 mcg TbDL Take by mouth. 0 Active omega-3 fatty Take 2 g by 0 Active acids-fish oil mouth daily. 340-1,000 mg Cap per capsule hydrALAZINE Take 75 mg by 0 Active (APRESOLINE) 50 MG mouth 2 (two) tablet times daily. magnesium oxide Take 400 mg by 0 Active (MAG-OX) 400 mg (241.3 mouth daily. mg magnesium) tablet multivitamin per tablet Take 1 tablet by 0 Active mouth daily. traMADol (ULTRAM) 50 mg Take 50 mg by 0 Active tablet mouth every 8 (eight) hours as needed for Pain. ascorbic acid, vitamin Take 1,000 mg by 0 Active C, (VITAMIN C) 1000 MG mouth daily. tablet loratadine (CLARITIN) Take 10 mg by 0 Active 10 mg tablet mouth daily. amLODIPine (NORVASC) 10 Take 10 mg by 0 Active MG tablet mouth daily Unsure of dose . turmeric (CURCUMIN by Miscellaneous 0 Active MISC) route. cyanocobalamin 1000 MCG Take 1 tablet 30 tablet 11 07/25/20 Active tablet (1,000 mcg 18 019 total) by mouth daily. warfarin (COUMADIN) 1 Take 1 mg by 0 Discontinued MG tablet mouth daily Pt 018 unsure of dose . hydroCHLOROthiazide Take 12.5 mg by 0 Discontinued (MICROZIDE) 12.5 mg mouth daily 018 capsule Unsure of dose . sulfamethoxazole-trimet Take 1 tablet 28 tablet 0 07/24/20 hoprim (BACTRIM DS) (160 mg of 18 018 800-160 mg per tablet trimethoprim total) by mouth 2 (two) times daily for 14 days. Active Problems Problem Noted Date Bacteremia due to Escherichia coli 07/23/2018 Hydronephrosis 07/21/2018 Encounters Date Type Specialty Care Team Description 07/21/2018 - [facility] Internal Changela, Other hydronephrosis ( Primary Dx); 07/24/2018 Encounter Medicine Milly Patiño MD Suprapubic catheter ([facility]); [place], Urinary tract infection associated with catheterization of urinary tract, unspecified indwelling urinary catheter type, initial encounter ( [facility]); MD Alber CKD stage 4 secondary to hypertension ([facility]); Betty Gudino Other vitamin B12 deficiency anemia; MD Marianne Bacteremia due to Escherichia coli after 11/24/2017 Social History Tobacco Use Types Packs/Day Years Used Date Former Smoker 1 Quit: 08/13/1977 Smokeless Tobacco: Never Used Alcohol Use Drinks/Week oz/Week Comments Yes 1 drink per month Sex Assigned at Date Recorded Not on file Job Start Date Occupation Industry Not on file Not on file Not on file Travel History Travel Start Travel End No recent travel history available. Last Filed Vital Signs Vital Sign Reading Time Taken Blood Pressure 116/57 07/24/2018 2:49 PM [facility] Pulse 87 07/24/2018 2:49 PM [facility] Temperature 36.8 C (98.3 F) 07/24/2018 2:49 PM [facility] Respiratory Rate 18 07/24/2018 2:49 PM [facility] Oxygen Saturation 97% 07/24/2018 2:49 PM [facility] Inhaled Oxygen Concentration - - Weight 78.1 kg (172 lb 2.9 oz) 07/21/2018 3:52 AM [facility] Height 167.6 cm (5' 6") 07/21/2018 3:52 AM [facility] Body Mass Index 27.79 07/21/2018 3:52 AM [facility] Plan of Treatment Not on file Procedures Procedure Name Priority Date/Time Associated Comments Diagnosis [place] CYSTOGRAM STATIC Routine 07/24/2018 1:15 Results for this PM [facility] procedure are in the results section. CBC W/PLT COUNT & Routine 07/24/2018 5:17 Results for this AUTO DIFFERENTIAL AM [facility] procedure are in the results section. BASIC METABOLIC PANEL Routine 07/24/2018 5:17 Results for this (7) AM [facility] procedure are in the results section. CBC W/PLT COUNT & Routine 07/24/2018 5:17 Results for this AUTO DIFFERENTIAL AM [facility] procedure are in the results section. XR CHEST 1 VIEW Routine 07/23/2018 6:23 Results for this PORTABLE/BEDSIDE PM [facility] procedure are in the results section. URINALYSIS W/ REFLEX Routine 07/23/2018 8:58 Results for this URINE CULTURE AM [facility] procedure are in the results section. URINE CULTURE Routine 07/23/2018 8:58 Results for this AM [facility] procedure are in the results section. URINE CULTURE Routine 07/23/2018 8:58 Results for this AM [facility] procedure are in the results section. US RENAL COMPLETE Routine 07/23/2018 8:14 Results for this AM [facility] procedure are in the results section. CBC W/PLT COUNT & Routine 07/23/2018 6:34 Results for this AUTO DIFFERENTIAL AM [facility] procedure are in the results section. BASIC METABOLIC PANEL Routine 07/23/2018 6:34 Results for this (7) AM [facility] procedure are in the results section. CBC W/PLT COUNT & Routine 07/23/2018 6:34 Results for this AUTO DIFFERENTIAL AM [facility] procedure are in the results section. BLOOD CULTURE Routine 07/22/2018 10:03 Results for this AM [facility] procedure are in the results section. BLOOD CULTURE Routine 07/22/2018 9:59 Results for this AM [facility] procedure are in the results section. CBC W/PLT COUNT & Routine 07/22/2018 4:26 Results for this AUTO DIFFERENTIAL AM [facility] procedure are in the results section. BASIC METABOLIC PANEL Routine 07/22/2018 4:26 Results for this (7) AM [facility] procedure are in the results section. CBC W/PLT COUNT & Routine 07/22/2018 4:26 Results for this AUTO DIFFERENTIAL AM [facility] procedure are in the results section. VITAMIN B12 AND Routine 07/22/2018 4:26 Results for this FOLATE AM [facility] procedure are in the results section. URINE CULTURE STAT 07/21/2018 9:55 Results for this AM [facility] procedure are in the results section. BASIC METABOLIC PANEL Routine 07/21/2018 9:45 Results for this (7) AM [facility] procedure are in the results section. CBC W/PLT COUNT & Routine 07/21/2018 6:12 Results for this AUTO DIFFERENTIAL AM [facility] procedure are in the results section. APTT Routine 07/21/2018 6:12 Results for this AM [facility] procedure are in the results section. PROTHROMBIN TIME/INR STAT 07/21/2018 6:12 Results for this AM [facility] procedure are in the results section. FERRITIN Routine 07/21/2018 6:12 Results for this AM [facility] procedure are in the results section. IRON, TIBC, % SAT. Routine 07/21/2018 6:12 Results for this (WITHOUT FERRITIN) AM [facility] procedure are in the results section. CBC W/PLT COUNT & Routine 07/21/2018 6:12 Results for this AUTO DIFFERENTIAL AM [facility] procedure are in the results section. after 11/24/2017 Results FL cystogram static (07/24/2018 1:15 PM [facility]) Narrative Performed At FINAL REPORT [facility] Static cystogram: Reason for exam: Reflux, KATHY with hydronephrosis in jaydon pouch patient. Please perform gravity fill cystogram and also post drainage films Total fluoroscopy time: 0.7 minutes Total number of films: 10 Discussion: Approximately 300 cc of water-soluble contrast material was introduced into the bladder through a suprapubic bladder catheter. Surgical clips are seen throughout the pelvis. The neobladder fills normally with contrast and is normal in morphology. There is mild right vesicoureteral reflux. There is no contrast extravasation to suggest leak. There is a moderate amount of contrast in the neobladder after drainage. Impression: 1. Intact neobladder without leak. 2. Mild right vesicoureteral reflux. 3. Moderate amount of contrast in the neobladder after drainage. Signed: Silver Garza MD Report Verified Date/Time:07/24/2018 13:39:30 Reading Location: [facility] C0X Ortho Consult Reading Room Procedure Note Interface, External Ris In - 07/24/2018 5:38 PM [facility] FINAL REPORT Static cystogram: Reason for exam: Reflux, KATHY with hydronephrosis in jaydon pouch patient. Please perform gravity fill cystogram and also post drainage films Total fluoroscopy time: 0.7 minutes Total number of films: 10 Discussion: Approximately 300 cc of water-soluble contrast material was introduced into the bladder through a suprapubic bladder catheter. Surgical clips are seen throughout the pelvis. The neobladder fills normally with contrast and is normal in morphology. There is mild right vesicoureteral reflux. There is no contrast extravasation to suggest leak. There is a moderate amount of contrast in the neobladder after drainage. Impression: 1. Intact neobladder without leak. 2. Mild right vesicoureteral reflux. 3. Moderate amount of contrast in the neobladder after drainage. Signed: Silver Garza MD Report Verified Date/Time: 07/24/2018 13:39:30 Reading Location: [facility] B1 [id number] Ortho Consult Reading Room Performing Organization Address City/State/Zipcode Phone Number GE RIS CBC with platelet count + automated diff (07/24/2018 5:17 AM [facility])Only the most recent of4 resultswithin the time period is included. WBC 9.6 3.5 - 10.5 K/L [facility] RBC 3.63 (L) 4.63 - 6.08 M/L [facility] Hemoglobin 11.5 (L) 13.7 - 17.5 GM/DL [facility] Hematocrit 36.1 (L) 40.1 - 51.0 % [facility] MCV 99.4 (H) 79.0 - 92.2 fL [facility] MCH 31.7 25.7 - 32.2 pg [facility] MCHC 31.9 (L) 32.3 - 36.5 GM/DL [facility] RDW 13.1 11.6 - 14.4 % [facility] Platelets 362 150 - 450 K/CU MM [facility] MPV 9.6 9.4 - 12.4 fL [facility] nRBC 0 0 - 0 /100 WBC [facility] % Neutros 61 % [facility] % Lymphs 20 % [facility] % Monos 13 % [facility] % Eos 6 % [facility] % Baso 0 % [facility] # Neutros 5.82 (H) 1.78 - 5.38 K/L [facility] # Lymphs 1.88 1.32 - 3.57 K/L [facility] # Monos 1.21 (H) 0.30 - 0.82 K/L [facility] # Eos 0.58 (H) 0.04 - 0.54 K/L [facility] # Baso 0.04 0.01 - 0.08 K/L [facility] Immature Granulocytes-Relative 1 0 - 1 % [facility] Specimen Blood - Arm, Right Performing Organization Address City/State/Zipcode Phone Number [facility] [address] [place] [address] [phone] CENTER Basic Metabolic Panel (07/24/2018 5:17 AM [facility])Only the most recent of4 resultswithin the time period is included. Sodium 138 136 - 145 meq/L [facility] Potassium 4.4 3.5 - 5.1 meq/L [facility] Chloride 110 (H) 98 - 107 meq/L [facility] CO2 15 (L) 22 - 29 meq/L [facility] BUN 35 (H) 7 - 21 mg/dL [facility] Creatinine 2.07 (H) 0.57 - 1.25 mg/dL [facility] Glucose 90 70 - 105 mg/dL [facility] Calcium 9.5 8.4 - 10.2 mg/dL [facility] EGFR 31Comment: ESTIMATED GFR IS mL/min/1.73 sq m [facility] NOT ACCURATE [facility] CLEARANCE IN PREDICTING GLOMERULAR FILTRATION RATE. ESTIMATED GFR IS NOT APPLICABLE FOR DIALYSIS PATIENTS. Specimen Blood - Arm, Right Performing Organization Address City/State/Zipcode Phone Number [facility] [address] [place] [address] [phone] CENTER XR chest 1 view portable / bedside (07/23/2018 6:23 PM [facility]) Narrative Performed At FINAL REPORT [facility] Chest one view AP 07/23/2018 6:46 PM CLINICAL INDICATION: eval for PNA COMPARISON: None available IMPRESSION: Subsegmental opacity in the right lung base may reflect atelectasis or pneumonia. There is linear atelectasis in the left lung base. Cardiomediastinal contours are within normal limits. The central pulmonary vasculature is not engorged. Signed: Robe Bartlett MD Report Verified Date/Time:07/23/2018 18:46:30 Reading Location: [facility] Radiology Reading Room Procedure Note Interface, External Ris In - 07/23/2018 6:48 PM [facility] FINAL REPORT Chest one view AP 07/23/2018 6:46 PM CLINICAL INDICATION: eval for PNA COMPARISON: None available IMPRESSION: Subsegmental opacity in the right lung base may reflect atelectasis or pneumonia. There is linear atelectasis in the left lung base. Cardiomediastinal contours are within normal limits. The central pulmonary vasculature is not engorged. Signed: Robe Bartlett MD Report Verified Date/Time: 07/23/2018 18:46:30 Reading Location: [facility] Radiology Reading Room Performing Organization Address City/State/Zipcode Phone Number [facility] Urinalysis w/Microscopic + Reflex to Culture (07/23/2018 8:58 AM [facility]) Color, UA Yellow [facility] Clarity, UA Hazy [facility] Specific Holmes, UA 1.010 1.001 - 1.035 [facility] pH, UA 5.5 5.0 - 8.0 [facility] Protein, UA 30 mg/dL (A) Negative [facility] Glucose, UA Negative Negative [facility] Ketones, UA Negative Negative [facility] Bilirubin, UA Negative Negative [facility] Blood, UA Trace (A) Negative [facility] Nitrite, UA Negative Negative [facility] Leukocytes, UA Large (A) Negative [facility] Urobilinogen, UA 0.2 0.2 - 1.0 mg/dL [facility] RBC, UA 6 /HPF [facility] WBC, UA 164 /HPF [facility] Bacteria, UA Rare [facility] Casts 1 /LPF [facility] Specimen Source [facility] Specimen Urine Performing Organization Address City/State/Zipcode Phone Number [facility] [address] [place] [address] [place] Urine culture (07/23/2018 8:58 AM [facility])Only the most recent of3 resultswithin the time period is included. Result No growth [facility] Specimen Urine - Urine, Unspecified Source Performing Organization Address City/State/Zipcode Phone Number [address] [address] [place] US renal complete (07/23/2018 8:14 AM [facility]) Narrative Performed At FINAL REPORT [employer] Ultrasound of the Kidneys, 07/23/2018. Clinical History: Hydronephrosis. Discussion: Sonographic evaluation of the kidneys is performed. Right kidney:11.0 cm in length, normal in size, with cortical thickness of 1.2 cm.Normal cortical echogenicity.No mass.No shadowing calculus.Moderate hydronephrosis. Multiple right-sided cysts are identified measuring 1.8 x 1.7 x 1.7 cm, 2.0 x 2.4 x 2.4 cm, 1.5 x 1.2 x 1.4 cm Left kidney: 11.4 cm in length, normal in size, with cortical thickness of 1.3 cm.Normal cortical echogenicity.No mass.No shadowing calculus.Moderate hydronephrosis. Limited Doppler evaluation demonstrates normal color Doppler flow within bilateral renal patricia. Fluid:No perinephric fluid. A Chaudhari catheter is seen in the patient's conduit. IMPRESSION: Moderate bilateral hydronephrosis. Signed: Juanito Hernandez MD Report Verified Date/Time:07/23/2018 17:47:46 Reading Location: [address] Ultrasound Reading Room Procedure Note Interface, External Ris In - 07/23/2018 5:49 PM [facility] FINAL REPORT Ultrasound of the Kidneys, 07/23/2018. Clinical History: Hydronephrosis. Discussion: Sonographic evaluation of the kidneys is performed. Right kidney: 11.0 cm in length, normal in size, with cortical thickness of 1.2 cm. Normal cortical echogenicity. No mass. No shadowing calculus. Moderate hydronephrosis. Multiple right-sided cysts are identified measuring 1.8 x 1.7 x 1.7 cm, 2.0 x 2.4 x 2.4 cm, 1.5 x 1.2 x 1.4 cm Left kidney: 11.4 cm in length, normal in size, with cortical thickness of 1.3 cm. Normal cortical echogenicity. No mass. No shadowing calculus. Moderate hydronephrosis. Limited Doppler evaluation demonstrates normal color Doppler flow within bilateral renal patricia. Fluid: No perinephric fluid. A Chaudhari catheter is seen in the patient's conduit. IMPRESSION: Moderate bilateral hydronephrosis. Signed: Juanito Hernandez MD Report Verified Date/Time: 07/23/2018 17:47:46 Reading Location: [address] Ultrasound Reading Room Performing Organization Address [facility] Phone Number [facility] Blood culture (07/22/2018 10:03 AM [facility])Only the most recent of2 resultswithin the time period is included. Result No growth in 5 days [facility] Specimen Blood - Arm, Left Performing Organization Address [facility] Phone Number [address] [address] [place] Vitamin B12 and Folate (07/22/2018 4:26 AM [facility]) Vitamin B12 <146 (L) 213 - 816 pg/mL [facility] Folate 16.2 >=7.0 ng/mL [facility] Specimen Blood Performing Organization Address [facility] Phone Number [address] [address] [place] Iron, TIBC, % sat. (without ferritin) (07/21/2018 6:12 AM [facility]) Iron 83 40 - 160 ug/dL [facility] TIBC 304 250 - 450 ug/dL [facility] Iron % Saturation 27 20 - 55 % [facility] Specimen Blood - Line, Venous Performing Organization Address [facility] Phone Number [address] [address] CENTER aPTT (07/21/2018 6:12 AM [facility]) PTT 28.7 22.5 - 36.0 seconds [facility] Specimen Blood - Line, Venous Performing Organization Address [facility] Phone Number [address] [address] [phone] CENTER Prothrombin time/INR (07/21/2018 6:12 AM [facility]) Protime 14.6 11.7 - 14.7 seconds [facility] INR 1.1 <=5.9 [facility] Specimen Blood - Line, Venous Narrative Performed At RECOMMENDED COUMADIN/WARFARIN INR THERAPY [facility] RANGES STANDARD DOSE: 2.0 - 3.0 Includes: PROPHYLAXIS for venous thrombosis, systemic embolization; TREATMENT for venous thrombosis and/or pulmonary embolus. HIGH RISK: Target INR is 2.5-3.5 for patients with mechanical heart valves. Performing Organization Address City/State/Zipcode Phone Number [address] [address] [phone] CENTER Ferritin (07/21/2018 6:12 AM [facility]) Ferritin 250 5 - 275 ng/mL [facility] Specimen Blood - Line, Venous Performing Organization Address City/[facility] Phone Number [address] [address] CENTER after 11/24/2017 Insurance Payer Benefit Plan / Subscriber ID Type Phone Address Group AET[employer] - MEDICARE AETNA MEDICARE HMO xxxxxxxx [phone] [address] [place] [address] Advance Directives For more information, please contact:[address] [phone] Code Status Date Activated Date Inactivated Comments Full Code 07/21/2018 4:39 AM This code status was determined by: Patient
--- OUTSIDE RECORDS SUMMARY | 2018-11-25 22:31 | XMS REPORT | Continuity of Care Document ---
[...] Group Vax) has been administered influenza 06/11/2012 [facility] Medical immunization (Flu Group Vax) has been administered influenza 08/17/2009 [facility] Medical immunization (Flu Group Vax) has been administered influenza 04/15/2009 [facility] Medical immunization (Flu Group Vax) has been administered influenza 05/14/2008 [facility] Medical immunization (Flu Group Vax) has been administered influenza 05/24/2007 [facility] Medical immunization (Flu Group Vax) has been administered pneumococcal 09/18/2006 [facility] Medical immunization Group administered Results Order [...] Chemistry BUN/CREAT 18 6 - 25 2014 [facility] Group Chemistry ALBUMIN 5.0 3.5 [...] Type Number For Provider Date Date Visit [facility] Lab Report [id number] Radha04/06 Ch[facility] 420 [facility] Office [id number] 04/06 [place] Visit 520 [facility] Office [id number] 04/09 [place] Visit 810 [facility] Office [id number] 06/24 [place] Visit 690 [facility] Office [id number] 12/25 [place] Visit 550 [facility] Office [id number] 01/25 [place] Visit 680 [facility] Outpatient [id number] RADHA 05/07 [facility] [place] Outpatient [id number] RADHA 07/22 [facility] [place] Outpatient [id number] RADHA 08/19 [facility] [place] Outpatient [id number] RADHA08/26 [facility] [place] Outpatient [id number] RADHA 09/15 [facility] [place] Outpatient [id number] RADHA 11/04 [facility] [place] Outpatient [id number] RADHA12/27 [facility] [place] Procedures Procedure Code Date Perfomer Comments Source colonoscopy 14243 01/16/2012 [facility] colonoscopy [id number] 01/16/2012 [facility] bone density 4002.65 07/13/2003 [facility]
--- OUTSIDE RECORDS SUMMARY | 2018-11-25 22:32 | XMS REPORT | Continuity of Care Document ---
:1930 Author Organization [facility] Care Team Providers Name Role Phone MD [...] AET[employer] - [employer] (MEDICARE SUPPLEMENT) AETNA [[id number]] [place]: [employer] AET[employer] - [employer] (MEDICARE SUPPLEMENT) AETNA [[id number]] [place] [employer] AET[employer] - [employer] (MEDICARE SUPPLEMENT) AETNA [[id number]] [place] [employer] AET[employer] - [employer] (MEDICARE SUPPLEMENT) AETNA [[id number]] [place] [employer] AET[employer] - [employer] (MEDICARE SUPPLEMENT) AETNA [[id number]] [place] [employer] AET[employer] - [employer] (MEDICARE SUPPLEMENT) AETNA [[id number]] [place] [employer] AET[employer] - [employer] (MEDICARE SUPPLEMENT) AETNA [[id number]] [place] [employer] AET[employer] - [employer] (MEDICARE SUPPLEMENT) AETNA (MEDICARE REPLACEMENT [place] PPO) AETNA [[id number]] [place] [employer] AET[employer] - [employer] (MEDICARE SUPPLEMENT) AETNA [[id number]] [place] [employer] AET[employer] - [employer] (MEDICARE SUPPLEMENT) Encounters Encounter Performer Location Date Office Visit Reg Abrams MD [facility] December 25, 2014 Problems Problem Effective [...] 2012Jul 15, platelet count [facility] 404 K/CMM [phone] /mm3 Apr 06, cholesterol, serum CHOLESTEROL 160 [...]
--- OUTSIDE RECORDS SUMMARY | 2018-11-25 22:32 | XMS REPORT | Continuity of Care Document ---
:1930 Author Organization [facility] Care Team Providers Name Role Phone MD [...] AETNA - [employer] (MEDICARE SUPPLEMENT) AETNA [[id number]] [place] [employer] AET[employer] - [place] [employer] (MEDICARE SUPPLEMENT) AETNA [[id number]] [place]: [place] [employer] AETNA - [employer] [employer] (MEDICARE SUPPLEMENT) AETNA [[id number]] [place]: [place] AETNA - [employer] (MEDICARE SUPPLEMENT) AETNA [[id number]] [place]: [place] AETNA - [employer] (MEDICARE SUPPLEMENT) Encounters Encounter Performer Location Date Office Visit Reg Abrams MD [facility] Apr 06, 2014 Problems Problem Effective [...] 2012Jul 15, platelet count PLATELETS 404 K/CMM [phone] /mm3 Jul 15, prostate specific PSA < 0.01 0.00-4.00 2012 antigen ng/mL ng/mL Jul 15, carcinoembryonic CEA 14.9 ng/mL 0.0-3.0 High 2013 antigen
--- OUTSIDE RECORDS SUMMARY | 2018-11-25 22:32 | XMS REPORT | Continuity of Care Document ---
:1930 Author Organization [facility] Care Team Providers Name Role Phone MD [...] AETNA - [employer] (MEDICARE SUPPLEMENT) AETNA [[id number]] [place] [employer] AET[employer] - [employer] (MEDICARE SUPPLEMENT) AETNA [[id number]] [place]: [place] AETNA - [employer] (MEDICARE SUPPLEMENT) AETNA [[id number]] [place]: [employer] AETNA - [employer] (MEDICARE SUPPLEMENT) AETNA [[id number]] [place]: [employer] AETNA - [employer] (MEDICARE SUPPLEMENT) Encounters Encounter Performer Location Date Lab Report Reg Abrams MD [facility] Apr 06, 2014 Problems Problem [...] 2012Jul 15, platelet count PLATELETS 404 K/CMM [phone] /mm3 Apr 06, cholesterol, serum CHOLESTEROL 160 [...]
--- OUTSIDE RECORDS SUMMARY | 2018-11-25 22:32 | XMS REPORT | Continuity of Care Document ---
:1930 Author Organization [facility] Care Team Providers Name Role Phone MD Abrams Luis Unavailable Unavailable Insurance Providers Payer name Policy type / Policy ID Covered green party ID Policy Andrews Coverage type MEDICARE [...] AETNA - [employer] (MEDICARE SUPPLEMENT) AETNA [[id number]] [place] [employer] AETNA - [place] [employer] (MEDICARE SUPPLEMENT) AETNA [[id number]] [place]: [employer] AETNA - [employer] (MEDICARE SUPPLEMENT) AETNA [[id number]] [place]: [employer] AETNA - [employer] (MEDICARE SUPPLEMENT) AETNA [[id number]] [place]: [employer] AETNA - [employer] (MEDICARE SUPPLEMENT) Encounters Encounter Performer Location Date Office Visit Reg Abrams MD [facility] Apr 09, 2014 Problems Problem Effective Dates [...] 2012Jul 15, platelet count PLATELETS 404 K/CMM [phone] /mm3 Apr 06, cholesterol, serum CHOLESTEROL 160 [...]
--- OUTSIDE RECORDS SUMMARY | 2018-11-25 22:32 | XMS REPORT | Continuity of Care Document ---
:1930 Author Organization [facility] Care Team Providers Name Role Phone MD [...] AETNA - [employer] (MEDICARE SUPPLEMENT) AETNA [[id number]] [place]: [employer] AETNA - [employer] (MEDICARE SUPPLEMENT) AETNA [[id number]] [place]: [employer] AETNA - [employer] (MEDICARE SUPPLEMENT) AETNA [[id number]] MEDIC[place]: [employer] AETNA - [employer] (MEDICARE SUPPLEMENT) AETNA [[id number]] MEDIC[place]: [employer] AETNA - [employer] (MEDICARE SUPPLEMENT) AETNA [[id number]] MEDIC[place]: [employer] AETNA - [employer] (MEDICARE SUPPLEMENT) AETNA [[id number]] MEDIC[place]: [employer] AETNA - [employer] (MEDICARE SUPPLEMENT) AETNA [[id number]] MEDIC[place]: [employer] AETNA - [employer] (MEDICARE SUPPLEMENT) Encounters Encounter Performer Location Date Office Visit Reg Abrams MD [facility] Jun 24, 2014 Problems Problem Effective Dates [...] 2012Jul 15, platelet count PLATELETS 404 K/CMM [phone] /mm3 Apr 06, cholesterol, serum CHOLESTEROL 160 [...]
--- OUTSIDE RECORDS SUMMARY | 2018-11-25 22:33 | XMS REPORT | Continuity of Care Document ---
:1930 Author Organization [facility] Care Team Providers Name Role [...] AETNA - MATT [employer] (MEDICARE SUPPLEMENT) AETNA [[id number]] [place]: [employer] AETNA - [employer] CHEM[employer] (MEDICARE SUPPLEMENT) AETNA [[id number]] MEDIC[place]: [employer] AETNA - MATT CHEMICAL (MEDICARE SUPPLEMENT) AETNA [[id number]] MEDIC[place]: [employer] AETNA - MATT CHEM[employer] (MEDICARE SUPPLEMENT) AETNA [[id number]] MEDICARE [place]: [employer] AETNA - [employer] CHEMICAL (MEDICARE SUPPLEMENT) AETNA [[id number]] MEDIC[place]: [employer] AETNA - MATT CHEMICAL (MEDICARE SUPPLEMENT) AETNA [[id number]] MEDIC[place]: [employer] AETNA - [employer] CHEMICAL (MEDICARE SUPPLEMENT) AETNA [[id number]] MEDIC[place]: [employer] AETNA - [employer] CHEMICAL (MEDICARE SUPPLEMENT) AETNA (MEDICARE REPLACEMENT BREND[place] PPO) AETNA [[id number]] MEDIC[place]: [employer] AETNA - [employer] CHEMICAL (MEDICARE SUPPLEMENT) AETNA [[id number]] MEDIC[place]: [employer] AETNA - [employer] CHEMICAL (MEDICARE SUPPLEMENT) AETNA [[id number]] MEDICARE [place]: [employer] AETNA - [employer] (MEDICARE SUPPLEMENT) Encounters Encounter Performer Location Date Office Visit Reg Abrams MD [facility] Jan 25, 2015 Problems Problem Effective Dates [...] 2012Jul 15, platelet count PLATELETS 404 K/CMM [phone] /mm3 Apr 06, cholesterol, serum CHOLESTEROL 160 [...]
--- OUTSIDE RECORDS SUMMARY | 2018-11-25 22:33 | XMS REPORT | Continuity of Care Document ---
:[address] [facility] Care Team Providers Name Role Phone [...] AETNA - MATT CHEMICAL (MEDICARE SUPPLEMENT) AETNA [[id number]] MEDIC[place]: [employer] AETNA - [employer] CHEMICAL (MEDICARE SUPPLEMENT) AETNA [[id number]] MEDICARE [place]: [employer] AETNA - MATT CHEMICAL (MEDICARE SUPPLEMENT) AETNA [[id number]] MEDICARE [place]: [employer] AETNA - MATT CHEMICAL (MEDICARE SUPPLEMENT) AETNA [[id number]] MEDICARE [place]: [employer] AETNA - MATT CHEMICAL (MEDICARE SUPPLEMENT) AETNA [[id number]] MEDICARE [place]: [employer] AETNA - MATT CHEMICAL (MEDICARE SUPPLEMENT) AETNA [[id number]] MEDICARE [place]: [employer] AETNA - MATT CHEMICAL (MEDICARE SUPPLEMENT) AETNA [[id number]] MEDICARE [place]: [employer] AETNA - MATT CHEMICAL (MEDICARE SUPPLEMENT) AETNA (MEDICARE REPLACEMENT BRENDAN PPO) AETNA [[id number]] MEDIC[place]: [employer] AETNA - MATT CHEMICAL (MEDICARE SUPPLEMENT) AETNA [[id number]] MEDICARE [place]: [employer] AETNA - MATT CHEMICAL (MEDICARE SUPPLEMENT) AETNA [[id number]] MEDICARE [place]: [employer] AETNA - MATT [employer] (MEDICARE SUPPLEMENT) Encounters Encounter Performer Location Date Office Visit Reg Abrams MD [facility] Jan 25, 2015 Problems Problem Effective Dates [...] 2012Jul 15, platelet count PLATELETS 404 K/CMM [phone] /mm3 Jan 25, hemoglobin, blood HGB 13.5 g/dL 14.0-18.0 Low 2014Jan 25, hematocrit, blood HCT 39.8 % 42.0-54.0 Low 2014Jan 25, platelet count PLATELETS 308 K/CMM 263-779 4678 /mm3 Apr 06, cholesterol, serum CHOLESTEROL 160 [...] Jan 25, sodium, serum SODIUM 141 MEQ/L [phone] mmol/L Jan 25, potassium, serum POTASSIUM 4.9 [...]
--- OUTSIDE RECORDS SUMMARY | 2018-11-25 22:34 | XMS REPORT ---
:1930 Author Organization [facility] Address [address] [place] [address] Dr. Romero [address] [place] [id number] Care Team Providers Name Role Phone TOBIN MAHAN Unavailable Unavailable Problems This patient has no known problems. Allergies, Adverse Reactions, Alerts This patient has no known allergies or adverse reactions. Medications This patient has no known medications. Results Test Description Test Time Test Comments Text Results Atomic Results Result Comments BLOOD CULTURE 2018-07-27 17:01:00 Test Item Value Reference Range Comments CULTURE (BEAKER) (test pxzd=1770) No growth in 5 days BLOOD [id number] 17:01:00 Test Item Value Reference Range Comments CULTURE (BEAKER) (test vhqk=5903) No growth in 5 days URINE [id number] 08:42:00 Test Item Value Reference Range Comments CULTURE (BEAKER) (test mijk=9867) No growth [place], CYSTOGRAM, [id number] 13:39:00Reason for exam:->Evaluate for erflux , KATHY with hydronephrosis in jaydon pouch patient. Please perform gravity fill cystogram and also post drainage filmsFINAL REPORT Static cystogram: Reason for exam: Reflux, [...] fills normally with contrast and is normal inmorphology. There is mild right vesicoureteral reflux. There is no contrast extravasation to suggestleak. There is a moderate amount of contrast in the neobladder after drainage. Impression:1. Intact neobladder without leak.2. Mild right vesicoureteral reflux.3. Moderate amount of contrast in the neobladder after drainage. Signed: Oscar Garza MDReport Verified Date/Time: 07/2018 13:39:30 Reading Location: [facility] B1 C013X Ortho Consult Reading Room [facility] METABOLIC [id number] 06:35:00 Test Item Value Reference Range Comments SODIUM (BEAKER) (test 138 meq/L 136-145 xzlu=368) POTASSIUM (BEAKER) (test 4.4 meq/L 3.5-5.1 zytv=362) CHLORIDE (BEAKER) (test 110 meq/L 98-107 vwgr=269) CO2 (BEAKER) (test 15 meq/L 22-29 bqjy=550) BLOOD UREA NITROGEN 35 mg/dL 7-21 (BEAKER) (test zzhz=285) CREATININE (BEAKER) (test 2.07 mg/dL 0.57-1.25 slpr=790) GLUCOSE RANDOM (BEAKER) 90 mg/dL 70-105 (test gffu=890) CALCIUM (BEAKER) (test 9.5 mg/dL 8.4-10.2 jbwt=080) EGFR (BEAKER) (test 31 mL/min/1.73 sq m ESTIMATED GFR IS NOT adle=5768) ACCURATE CREATININE CLEARANCE IN PREDICTING GLOMERULAR FILTRATION RATE. ESTIMATED GFR IS NOT APPLICABLE FOR DIALYSIS PATIENTS. CBC W/PLT COUNT & AUTO [id number] 06:18:00 Test Item Value Reference Range Comments WHITE BLOOD CELL COUNT (BEAKER) (test hsqm=348) 9.6 K/ L 3.5-10.5 RED BLOOD CELL COUNT (BEAKER) (test zaph=842) 3.63 M/ L 4.63-6.08 HEMOGLOBIN (BEAKER) (test wwls=745) 11.5 GM/DL 13.7-17.5 HEMATOCRIT (BEAKER) (test ypwk=801) 36.1 % 40.1-51.0 MEAN CORPUSCULAR VOLUME (BEAKER) (test azkn=149) 99.4 fL 79.0-92.2 MEAN CORPUSCULAR HEMOGLOBIN (BEAKER) (test 31.7 pg 25.7-32.2 ehhm=565) MEAN CORPUSCULAR HEMOGLOBIN CONC (BEAKER) (test 31.9 GM/DL 32.3-36.5 tnoe=781) RED CELL DISTRIBUTION WIDTH (BEAKER) (test 13.1 % 11.6-14.4 nfdp=099) PLATELET COUNT (BEAKER) (test qvyr=855) 362 K/CU MM 150-450 MEAN PLATELET VOLUME (BEAKER) (test zqso=339) 9.6 fL 9.4-12.4 NUCLEATED RED BLOOD CELLS (BEAKER) (test 0 /100 WBC 0-0 nptr=161) NEUTROPHILS RELATIVE PERCENT (BEAKER) (test 61 % yihw=928) LYMPHOCYTES RELATIVE PERCENT (BEAKER) (test 20 % rzhi=842) MONOCYTES RELATIVE PERCENT (BEAKER) (test 13 % gypv=192) EOSINOPHILS RELATIVE PERCENT (BEAKER) (test 6 % lfrk=805) BASOPHILS RELATIVE PERCENT (BEAKER) (test 0 % ceme=315) NEUTROPHILS ABSOLUTE COUNT (BEAKER) (test 5.82 K/ L 1.78-5.38 jzth=535) LYMPHOCYTES ABSOLUTE COUNT (BEAKER) (test 1.88 K/ L 1.32-3.57 vhmt=359) MONOCYTES ABSOLUTE COUNT (BEAKER) (test 1.21 K/ L 0.30-0.82 jwko=397) EOSINOPHILS ABSOLUTE COUNT (BEAKER) (test 0.58 K/ L 0.04-0.54 zgzs=274) BASOPHILS ABSOLUTE COUNT (BEAKER) (test 0.04 K/ L 0.01-0.08 gpbj=965) IMMATURE GRANULOCYTES-RELATIVE PERCENT (BEAKER) 1 % 0-1 (test vrzm=3663) RAD, CHEST, 1 VIEW, NON [id number] 18:46:00Reason for exam:->eval for PNAShould this be performed at the bedside?->YesFINAL REPORT Chest one view AP 07/23/2018 6:46 PM CLINICAL INDICATION: eval for PNA COMPARISON: None available IMPRESSION: Subsegmental opacity in the right lung base may reflectatelectasis or pneumonia. There is linear atelectasis in the left lung base. Cardiomediastinal contours are within normal limits. The central pulmonary vasculature is not engorged. Signed: Robe Bartlett MDReport Verified Date/Time: 07/23/2018 18:46:30 Reading Location: [facility] Reading Room Electronically signed by: ROBE BARTLETT M.D. on 06:46 PMU/S, RENAL, [id number] 17:47:00Reason for exam:-> hydronephrosis in jaydon pouchFINAL REPORT Ultrasound of the Kidneys, 07/23/2018. Clinical History: Hydronephrosis. Discussion: Sonographic evaluation of the kidneys is performed. Right kidney: 11.0 cm in length, normal in size, with cortical thickness of 1.2 cm. Normal cortical echogenicity. No mass. Noshadowing calculus. Moderate hydronephrosis. Multiple right-sided cysts are identified measuring 1.8 x 1.7 x 1.7 cm, 2.0 x 2.4 x 2.4 cm, 1.5 x 1.2 x 1.4 cm Left kidney: 11.4 cm in length, normal in size , with cortical thickness of 1.3 cm. Normal cortical echogenicity. No mass. No shadowing calculus. Moderate hydronephrosis. Limited Doppler evaluation demonstrates normal color Doppler flow withinbilateral renal patricia. Fluid: No perinephric fluid. A Chaudhari catheter is seen in the patient's conduit. IMPRESSION:Moderate bilateral hydronephrosis. Signed: Juanito Hernandezeport Verified Date/Time: 07/23/2018 17:47:46 Reading Location: [facility] P006J Ultrasound Reading Room URINALYSIS W/ REFLEX URINE [id number] 10:02:00 Test Item Value Reference Range Comments COLOR (BEAKER) (test wcqm=158) Yellow CLARITY (BEAKER) (test nlup=526) Hazy SPECIFIC GRAVITY UA (BEAKER) (test etum=815) 1.010 1.001-1.035 PH UA (BEAKER) (test miqt=219) 5.5 5.0-8.0 PROTEIN UA (BEAKER) (test hvbg=116) 30 mg/dL Negative GLUCOSE UA (BEAKER) (test adtz=023) Negative Negative KETONES UA (BEAKER) (test wgfi=870) Negative Negative BILIRUBIN UA (BEAKER) (test ckia=716) Negative Negative BLOOD UA (BEAKER) (test kdgn=345) Trace Negative NITRITE UA (BEAKER) (test qmis=234) Negative Negative LEUKOCYTE ESTERASE UA (BEAKER) (test bgfm=622) Large Negative UROBILINOGEN UA (BEAKER) (test aakc=973) 0.2 mg/dL 0.2-1.0 RBC UA (BEAKER) (test ocfg=176) 6 /HPF WBC UA (BEAKER) (test bbbl=262) 164 /HPF BACTERIA (BEAKER) (test pzbk=363) Rare CASTS (BEAKER) (test lgbs=1422) 1 /LPF SOURCE(BEAKER) (test jiwr=8572) BASIC METABOLIC [id number] 07:13:00 Test Item Value Reference Range Comments SODIUM (BEAKER) (test 139 meq/L 136-145 cbfv=023) POTASSIUM (BEAKER) (test 4.2 meq/L 3.5-5.1 gnim=313) CHLORIDE (BEAKER) (test 112 meq/L 98-107 lqlh=486) CO2 (BEAKER) (test 19 meq/L 22-29 irle=758) BLOOD UREA NITROGEN 37 mg/dL 7-21 (BEAKER) (test ixhd=036) CREATININE (BEAKER) (test 2.20 mg/dL 0.57-1.25 egby=427) GLUCOSE RANDOM (BEAKER) 96 mg/dL 70-105 (test fbtp=351) CALCIUM (BEAKER) (test 9.3 mg/dL 8.4-10.2 fxae=877) EGFR (BEAKER) (test 29 mL/min/1.73 sq m ESTIMATED GFR IS NOT kbxx=8608) ACCURATE CREATININE CLEARANCE IN PREDICTING GLOMERULAR FILTRATION RATE. ESTIMATED GFR IS NOT APPLICABLE FOR DIALYSIS PATIENTS. CBC W/PLT COUNT & AUTO [id number] 06:54:00 Test Item Value Reference Range Comments WHITE BLOOD CELL COUNT (BEAKER) (test trso=571) 7.4 K/ L 3.5-10.5 RED BLOOD CELL COUNT (BEAKER) (test esah=655) 3.33 M/ L 4.63-6.08 HEMOGLOBIN (BEAKER) (test olox=272) 10.6 GM/DL 13.7-17.5 HEMATOCRIT (BEAKER) (test ecbn=516) 32.8 % 40.1-51.0 MEAN CORPUSCULAR VOLUME (BEAKER) (test xhxd=232) 98.5 fL 79.0-92.2 MEAN CORPUSCULAR HEMOGLOBIN (BEAKER) (test 31.8 pg 25.7-32.2 gncv=597) MEAN CORPUSCULAR HEMOGLOBIN CONC (BEAKER) (test 32.3 GM/DL 32.3-36.5 keud=577) RED CELL DISTRIBUTION WIDTH (BEAKER) (test 13.2 % 11.6-14.4 vgxe=591) PLATELET COUNT (BEAKER) (test rylj=165) 322 K/CU MM 150-450 MEAN PLATELET VOLUME (BEAKER) (test dbdd=628) 9.3 fL 9.4-12.4 NUCLEATED RED BLOOD CELLS (BEAKER) (test 0 /100 WBC 0-0 lcsn=611) NEUTROPHILS RELATIVE PERCENT (BEAKER) (test 61 % nrre=641) LYMPHOCYTES RELATIVE PERCENT (BEAKER) (test 20 % ltek=082) MONOCYTES RELATIVE PERCENT (BEAKER) (test 13 % tlmp=242) EOSINOPHILS RELATIVE PERCENT (BEAKER) (test 5 % wdgd=742) BASOPHILS RELATIVE PERCENT (BEAKER) (test 0 % awlm=173) NEUTROPHILS ABSOLUTE COUNT (BEAKER) (test 4.50 K/ L 1.78-5.38 kdsy=038) LYMPHOCYTES ABSOLUTE COUNT (BEAKER) (test 1.47 K/ L 1.32-3.57 hplo=042) MONOCYTES ABSOLUTE COUNT (BEAKER) (test 0.97 K/ L 0.30-0.82 sjph=486) EOSINOPHILS ABSOLUTE COUNT (BEAKER) (test 0.37 K/ L 0.04-0.54 covg=308) BASOPHILS ABSOLUTE COUNT (BEAKER) (test 0.03 K/ L 0.01-0.08 zdlz=208) IMMATURE GRANULOCYTES-RELATIVE PERCENT (BEAKER) 1 % 0-1 (test fomy=8693) URINE [id number] 11:17:00 Test Item Value Reference Range Comments CULTURE (BEAKER) (test calr=6706) See comment 20-29,000 col/mL enteric organisms of >3 types. No further workup performed. Multiple organisms suggestive of colonization or contamination. Repeat collection recommended.VITAMIN B12 AND [id number] 06:08:00 Test Item Value Reference Range Comments VITAMIN B12 (BEAKER) (test gich=191) < pg/mL 213-816 FOLATE (BEAKER) (test rpmh=495) 16.2 ng/mL >=7.0 BASIC METABOLIC [id number] 05:46:00 Test Item Value Reference Range Comments SODIUM (BEAKER) (test 140 meq/L 136-145 ohcw=854) POTASSIUM (BEAKER) (test 4.4 meq/L 3.5-5.1 anso=691) CHLORIDE (BEAKER) (test 115 meq/L 98-107 ydgg=645) CO2 (BEAKER) (test 15 meq/L 22-29 nytx=181) BLOOD UREA NITROGEN 49 mg/dL 7-21 (BEAKER) (test vrcf=935) CREATININE (BEAKER) (test 3.20 mg/dL 0.57-1.25 sgpt=243) GLUCOSE RANDOM (BEAKER) 93 mg/dL 70-105 (test ltjx=785) CALCIUM (BEAKER) (test 9.1 mg/dL 8.4-10.2 wsxo=891) EGFR (BEAKER) (test 19 mL/min/1.73 sq m ESTIMATED GFR IS NOT nmja=0587) ACCURATE CREATININE CLEARANCE IN PREDICTING GLOMERULAR FILTRATION RATE. ESTIMATED GFR IS NOT APPLICABLE FOR DIALYSIS PATIENTS. CBC W/PLT COUNT & AUTO [id number] 05:09:00 Test Item Value Reference Range Comments WHITE BLOOD CELL COUNT (BEAKER) (test howl=335) 10.1 K/ L 3.5-10.5 RED BLOOD CELL COUNT (BEAKER) (test mveo=994) 3.11 M/ L 4.63-6.08 HEMOGLOBIN (BEAKER) (test rkgw=972) 9.9 GM/DL 13.7-17.5 HEMATOCRIT (BEAKER) (test dzbt=999) 31.5 % 40.1-51.0 MEAN CORPUSCULAR VOLUME (BEAKER) (test potz=914) 101.3 fL 79.0-92.2 MEAN CORPUSCULAR HEMOGLOBIN (BEAKER) (test 31.8 pg 25.7-32.2 mfnl=588) MEAN CORPUSCULAR HEMOGLOBIN CONC (BEAKER) (test 31.4 GM/DL 32.3-36.5 grbe=174) RED CELL DISTRIBUTION WIDTH (BEAKER) (test 13.4 % 11.6-14.4 zguc=302) PLATELET COUNT (BEAKER) (test qyli=413) 318 K/CU MM 150-450 MEAN PLATELET VOLUME (BEAKER) (test rixt=209) 9.7 fL 9.4-12.4 NUCLEATED RED BLOOD CELLS (BEAKER) (test 0 /100 WBC 0-0 xfba=987) NEUTROPHILS RELATIVE PERCENT (BEAKER) (test 71 % lque=714) LYMPHOCYTES RELATIVE PERCENT (BEAKER) (test 13 % hymv=258) MONOCYTES RELATIVE PERCENT (BEAKER) (test 10 % kbgf=396) EOSINOPHILS RELATIVE PERCENT (BEAKER) (test 4 % lhch=604) BASOPHILS RELATIVE PERCENT (BEAKER) (test 0 % ijiv=923) NEUTROPHILS ABSOLUTE COUNT (BEAKER) (test 7.21 K/ L 1.78-5.38 fvwf=606) LYMPHOCYTES ABSOLUTE COUNT (BEAKER) (test 1.31 K/ L 1.32-3.57 bacc=575) MONOCYTES ABSOLUTE COUNT (BEAKER) (test 1.02 K/ L 0.30-0.82 lhkh=136) EOSINOPHILS ABSOLUTE COUNT (BEAKER) (test 0.45 K/ L 0.04-0.54 ocxc=718) BASOPHILS ABSOLUTE COUNT (BEAKER) (test 0.04 K/ L 0.01-0.08 yosj=907) IMMATURE GRANULOCYTES-RELATIVE PERCENT (BEAKER) 1 % 0-1 (test jxoe=3681) BASIC METABOLIC [id number] 10:41:00 Test Item Value Reference Range Comments SODIUM (BEAKER) (test 141 meq/L 136-145 spgp=004) POTASSIUM (BEAKER) (test 4.2 meq/L 3.5-5.1 bkzr=814) CHLORIDE (BEAKER) (test 116 meq/L 98-107 azaq=384) CO2 (BEAKER) (test 14 meq/L 22-29 jtym=130) BLOOD UREA NITROGEN 46 mg/dL 7-21 (BEAKER) (test ufuh=918) CREATININE (BEAKER) (test 2.77 mg/dL 0.57-1.25 ajht=662) GLUCOSE RANDOM (BEAKER) 136 mg/dL 70-105 (test stlr=861) CALCIUM (BEAKER) (test 8.9 mg/dL 8.4-10.2 xtge=751) EGFR (BEAKER) (test 22 mL/min/1.73 sq m ESTIMATED GFR IS NOT prxe=5275) ACCURATE CREATININE CLEARANCE IN PREDICTING GLOMERULAR FILTRATION RATE. ESTIMATED GFR IS NOT APPLICABLE FOR DIALYSIS PATIENTS. IRON, TIBC, % SAT. (WITHOUT FERRITIN)2018-07-21 07:18:00 Test Item Value Reference Range Comments IRON (BEAKER) (test nmic=855) 83 ug/dL 40-160 TOTAL IRON BINDING CAPACITY (BEAKER) (test 304 ug/dL 250-450 lgaq=744) IRON % SATURATION (2) (BEAKER) (test mrlq=6187) 27 % 20-55 [id number] 07:12:00 Test Item Value Reference Range Comments FERRITIN (BEAKER) (test gewl=818) 250 ng/mL 5-275 CBC W/PLT COUNT & AUTO [id number] 07:02:00 Test Item Value Reference Range Comments WHITE BLOOD CELL COUNT (BEAKER) (test ryuv=691) 14.8 K/ L 3.5-10.5 RED BLOOD CELL COUNT (BEAKER) (test mlbz=448) 3.40 M/ L 4.63-6.08 HEMOGLOBIN (BEAKER) (test wubc=590) 10.7 GM/DL 13.7-17.5 HEMATOCRIT (BEAKER) (test gdps=135) 34.0 % 40.1-51.0 MEAN CORPUSCULAR VOLUME (BEAKER) (test sokx=671) 100.0 fL 79.0-92.2 MEAN CORPUSCULAR HEMOGLOBIN (BEAKER) (test 31.5 pg 25.7-32.2 bnyl=927) MEAN CORPUSCULAR HEMOGLOBIN CONC (BEAKER) (test 31.5 GM/DL 32.3-36.5 wkrk=950) RED CELL DISTRIBUTION WIDTH (BEAKER) (test 13.2 % 11.6-14.4 koml=449) PLATELET COUNT (BEAKER) (test uvrw=680) 363 K/CU MM 150-450 MEAN PLATELET VOLUME (BEAKER) (test bkpp=494) 9.8 fL 9.4-12.4 NUCLEATED RED BLOOD CELLS (BEAKER) (test 0 /100 WBC 0-0 whjy=378) NEUTROPHILS RELATIVE PERCENT (BEAKER) (test 78 % jeru=774) LYMPHOCYTES RELATIVE PERCENT (BEAKER) (test 10 % rern=156) MONOCYTES RELATIVE PERCENT (BEAKER) (test 10 % nsgm=536) EOSINOPHILS RELATIVE PERCENT (BEAKER) (test 2 % odsf=104) BASOPHILS RELATIVE PERCENT (BEAKER) (test 0 % iihe=522) NEUTROPHILS ABSOLUTE COUNT (BEAKER) (test 11.47 K/ L 1.78-5.38 wjiw=478) LYMPHOCYTES ABSOLUTE COUNT (BEAKER) (test 1.46 K/ L 1.32-3.57 clvm=883) MONOCYTES ABSOLUTE COUNT (BEAKER) (test 1.45 K/ L 0.30-0.82 vvvk=471) EOSINOPHILS ABSOLUTE COUNT (BEAKER) (test 0.25 K/ L 0.04-0.54 rpvr=652) BASOPHILS ABSOLUTE COUNT (BEAKER) (test 0.03 K/ L 0.01-0.08 cubx=238) IMMATURE GRANULOCYTES-RELATIVE PERCENT (BEAKER) 1 % 0-1 (test tzvk=1234) PROTHROMBIN TIME/[id number] 06:34:00 Test Item Value Reference Range Comments PROTIME (BEAKER) (test dvwb=176) 14.6 seconds 11.7-14.7 INR (BEAKER) (test kpqi=727) 1.1 <=5.9 RECOMMENDED COUMADIN/WARFARIN INR THERAPY RANGESSTANDARD DOSE: 2.0 - 3.0 Includes: PROPHYLAXIS forvenous thrombosis, systemic embolization; TREATMENT for venous thrombosis and/or pulmonary embolus.HIGH RISK: Target INR is 2.5-3.5 for patients with mechanical heart valves.[id number] 06:34:00 Test Item Value Reference Range Comments PARTIAL THROMBOPLASTIN TIME (BEAKER) (test 28.7 seconds 22.5-36.0 baac=321)
[2018-11-25] MEDS ORDERED: LEVALBUTEROL 1.25 MG/3 ML NEB ONE (23:55)
[2018-11-26 00:10] LABS: Absolute Lymphocytes (CBC) 0.6 K/uL (0.7-4.9); Absolute Neutrophil 9.2 K/uL (1.8-8.0); Basophils % 0.5 % (0-1.3); Eosinophils % 0.4 % (0-4.4); Hematocrit 35.6 % (39.6-49.0); Lymphocytes % 5.2 % (15.3-44.8); MPV 7.7 fL (7.6-11.3); Monocytes % 9.5 % (3.3-12.3); RBC Red Blood Cell Count 3.73 M/uL (4.33-5.43)
[2018-11-26 00:18] LABS: Protime INR 1.04
[2018-11-26 00:28] LABS: Albumin 3.7 g/dL (3.4-5.0); Bilirubin Direct 0.1 mg/dL (0-0.2); Bilirubin Total 0.4 mg/dL (0.2-1.0); Protein, Total 7.7 g/dL (6.4-8.2); Troponin (Emerg Dept Use Only) 0.03 ng/mL (0.0-0.045)
--- NOTE | 2018-11-26 01:43 | EDPHYS ---
Physician Documentation [facility] Name: Avila Marsh Age: 87 yrs Sex: Male : 1930 Arrival Date: 11/25/2018 Time: 22:32 Bed 14 Private MD: ED Physician Maximilian Jaimes HPI: 11/26 00:00 This 87 yrs old Male presents to ER via EMS with complaints of Fever. pm1 00:00 The patient reports fever, that was measured at 102 degrees Fahrenheit. Onset: The pm1 symptoms/episode began/occurred today. Modifying factors: new medications. took azithromycin and albuterol with atrovent.. Associated signs and symptoms: Pertinent positives: cough, white sputum. Pertinent negatives: chest pain, runny nose, sinus congestion, sinus drainage, skin rash, shortness of breath, sore throat. Severity of symptoms: in the emergency department the symptoms have improved Pain is currently a 0 / 10. The patient has experienced similar episodes in the past, and the symptoms today are exactly the same, to when the patient was apparently diagnosed with URI. Seen by PCP Dr. Arambula today for the same complaint and given z-rick, Duoneb, and tessalon perls. Patient reports feeling gittery and tired about thirty minutes after taking new medications, azithromycin and duoneb. Patient has taken tessalon perles in the past. Patient had wheezing and cough that resolved with the duoneb. Fever of 102 that improved with tylenol. Historical: - Allergies: 11/25 22:43 Ciprofloxacin; fc - Home Meds: 22:43 hydralazine 75 mg Oral tab 2 times per day [Active]; amlodipine 5 mg oral tab 1 tab fc once daily [Active]; biotin 2,500 mcg oral cap daily [Active]; Magnesium Oxide Oral 400 mg daily [Active]; Multi-Day Oral daily [Active]; Fish Oil Oral daily [Active]; Vitamin C 1,000 mg oral tab daily [Active]; - PMHx: 22:43 Bladder cancer; DVT; Hypertension; kidney problems; Anemia; fc - PSHx: 22:43 suprapubic cath; shoulder sx; Cholecystectomy; bladder sx; Appendectomy; fc - Immunization history:: Last tetanus immunization: unknown. - Social history:: Smoking status: Patient/guardian denies using tobacco, Patient/guardian denies using alcohol, street drugs. - Ebola Screening: : Patient negative for fever greater than or equal to 101.5 degrees Fahrenheit, and additional compatible Ebola Virus Disease symptoms Patient denies exposure to infectious person Patient denies travel to an Ebola-affected area in the 21 days before illness onset. ROS: 11/26 00:00 Eyes: Negative for injury, pain, redness, and discharge, ENT: Negative for injury, pm1 pain, and discharge, Neck: Negative for injury, pain, and swelling, Cardiovascular: Negative for chest pain, palpitations, and edema, Abdomen/GI: Negative for abdominal pain, nausea, vomiting, diarrhea, and constipation, Back: Negative for injury and pain, : Negative for injury, bleeding, discharge, and swelling. MS/Extremity: Negative for injury and deformity, Skin: Negative for injury, rash, and discoloration, Neuro: Negative for headache, weakness, numbness, tingling, and seizure. Constitutional: Positive for fever, Negative for body aches. Respiratory: Positive for cough, with white sputum, wheezing. Exam: 00:00 Constitutional: This is a well developed, well nourished patient who is awake, alert, pm1 and in no acute distress. Head/Face: Normocephalic, atraumatic. Eyes: Pupils equal round and reactive to light, extra-ocular motions intact. Lids and lashes normal. Conjunctiva and sclera are non-icteric and not injected. Cornea within normal limits. Periorbital areas with no swelling, redness, or edema. ENT: Nares patent. No nasal discharge, no septal abnormalities noted. Tympanic membranes are normal and external auditory canals are clear. Oropharynx with no redness, swelling, or masses, exudates, or evidence of obstruction, uvula midline. Mucous membranes moist. Neck: Trachea midline, no thyromegaly or masses palpated, and no cervical lymphadenopathy. Supple, full range of motion without nuchal rigidity, or vertebral point tenderness. No Meningismus. Chest/axilla: Normal chest wall appearance and motion. Nontender with no deformity. No lesions are appreciated. Cardiovascular: Regular rate and rhythm with a normal S1 and S2. No gallops, murmurs, or rubs. Normal PMI, no JVD. No pulse deficits. Respiratory: Lungs have equal breath sounds bilaterally, clear to auscultation and percussion. No rales, rhonchi or wheezes noted. No increased work of breathing, no retractions or nasal flaring. Abdomen/GI: Soft, non-tender, with normal bowel sounds. No distension or tympany. No guarding or rebound. No evidence of tenderness throughout Back: No spinal tenderness. No costovertebral tenderness. Full range of motion. Skin: Warm, dry with normal turgor. Normal color with no rashes, no lesions, and no evidence of cellulitis. MS/ Extremity: Pulses equal, no cyanosis. Neurovascular intact. Full, normal range of motion. 00:00 Neuro: Orientation: is normal, Motor: is normal, moves all fours. Vital Signs: 11/25 22:25 BP 147 / 73; Pulse 106; Resp 18; Temp 98.8(O); Pulse Ox 95% on R/A; Weight 76.66 kg fc (R); Height 5 ft. 7 in. (170.18 cm) (R); Pain 5/10; 23:30 BP 141 / 70; Pulse 95; Resp 17; Pulse Ox 99% on R/A; rr5 11/26 00:30 BP 125 / 70; Pulse 90; Resp 18; Pulse Ox 98% ; rr5 01:20 BP 121 / 67; Pulse 89; Resp 16; Pulse Ox 99% ; rr5 02:10 BP 107 / 66; Pulse 86; Resp 17; Temp 98.8; Pulse Ox 97% on R/A; Pain 0/10; rr5 11/25 22:25 Body Mass Index 26.47 (76.66 kg, 170.18 cm) MDM: 11/25 23:34 Patient medically screened. pm1 11/26 01:42 Data reviewed: vital signs. Data interpreted: Pulse oximetry: on room air is 99 %. pm1 Interpretation: normal. Counseling: I had a detailed discussion with the patient and/or guardian regarding: the historical points, exam findings, and any diagnostic results supporting the discharge/admit diagnosis, lab results, radiology results, the need for outpatient follow up, to return to the emergency department if symptoms worsen or persist or if there are any questions or concerns that arise at home. 11/25 23:38 Order name: Basic Metabolic Panel pm1 11/25 23:38 Order name: Blood Culture Adult (2) pm1 11/25 23:38 Order name: CBC with Diff pm1 11/25 23:38 Order name: Lactate; Complete Time: 01:41 pm1 11/25 23:38 Order name: LFT's; Complete Time: 01:41 pm1 11/25 23:38 Order name: Procalcitonin; Complete Time: 01:41 pm1 11/25 23:38 Order name: Protime (+inr); Complete Time: 01:41 pm1 11/25 23:38 Order name: Ptt, Activated; Complete Time: 01:41 pm1 11/25 23:38 Order name: Troponin (emerg Dept Use Only); Complete Time: 01:41 pm1 11/25 23:38 Order name: Chest Pa And Lat (2 Views) XRAY pm11/25 23:39 Order name: Basic Metabolic Panel; Complete Time: 01:41 EDMS 11/25 23:39 Order name: Blood Culture EDMS 11/25 23:39 Order name: CBC with Automated Diff; Complete Time: 01:41 EDMS 11/25 23:38 Order name: Cardiac monitoring; Complete Time: 23:55 pm1 11/25 23:38 Order name: EKG - Nurse/Tech; Complete Time: 23:55 pm1 11/25 23:38 Order name: IV Saline Lock - Large Bore; Complete Time: 23:55 pm1 11/25 23:38 Order name: Labs collected and sent; Complete Time: 23:55 pm1 11/25 23:38 Order name: O2 Per Protocol; Complete Time: 23:55 pm1 11/25 23:38 Order name: O2 Sat Monitoring; Complete Time: 23:55 pm1 Administered Medications: 00:24 Drug: Xopenex 1.25 mg Route: Inhalation; rr5 02:15 Follow up: Response: No adverse reaction rr5 Disposition: 03:08 Co-signature as Attending Physician, Maximilian Jaimes MD. pkl Disposition: 11/26/18 01:42 Discharged to Home. Impression: Bronchitis, not specified as acute or chronic. - Condition is Stable. - Discharge Instructions: Acute Bronchitis, Adult. - Prescriptions for Xopenex 1.25 mg/3 mL Inhalation Solution for Nebulization - inhale 1 unit by NEBULIZATION route every 8 hours As needed; 1 box. - Medication Reconciliation Form, Thank You Letter, Antibiotic Education, Prescription Opioid Use form. - Follow up: Emergency Department; When: As needed; Reason: Worsening of condition. Follow up: Private Physician; When: 2 - 3 days; Reason: Recheck today's complaints, Continuance of care, Re-evaluation by your physician. - Problem is new. - Symptoms have improved. Signatures: Dispatcher [employer] EDMS Maximilian Jaimes MD MD pkl Chretien, Felicia, RN RN Wilfred Barajas NP BONDING MACHINE SETTER pm1 Giancarlo Owens RN RN rr5 Corrections: (The following items were deleted from the chart) 01:23 11/25 23:38 Urine Dipstick-Ancillary ordered. pm1 rr5 11/26 02:18 01:42 11/26/2018 01:42 Discharged to Home. Impression: Bronchitis, not specified as rr5 acute or chronic. Condition is Stable. Forms are Medication Reconciliation Form, Thank You Letter, Antibiotic Education, Prescription Opioid Use. Follow up: Emergency Department; When: As needed; Reason: Worsening of condition. Follow up: Private Physician; When: 2 - 3 days; Reason: Recheck today's complaints, Continuance of care, Re-evaluation by your physician. Problem is new. Symptoms have improved. pm1
--- NOTE | 2018-11-26 01:43 | ER ---
Nurse's Notes [facility] Name: Avila Marsh Age: 87 yrs Sex: Male : 1930 Arrival Date: 11/25/2018 Time: 22:32 Bed 14 Private MD: Diagnosis: Bronchitis, not specified as acute or chronic Presentation: 11/25 22:25 Presenting complaint: Patient states: that he has had a cough with thick white sputum fc for 4 months. Went to see Dr Arambula today and dx with URI and given Zpack, Tessalon and nebs. After taking it he became weak and dizzy. Also had fever of 102. Transition of care: patient was not received from another setting of care. Onset of symptoms was November 25, 2018. Risk Assessment: Do you want to hurt yourself or someone else? Patient reports no desire to harm self or others. Initial Sepsis Screen: Does the patient meet any 2 criteria? HR > 90 bpm. Yes Does the patient have a suspected source of infection? No. Patient's initial sepsis screen is negative. Care prior to arrival: Medication(s) given: Tylenol, 500 mg. 22:25 Method Of Arrival: EMS: [facility] 22:25 Acuity: ANA 3 fc Historical: - Allergies: 22:43 Ciprofloxacin; fc - Home Meds: 22:43 hydralazine 75 mg Oral tab 2 times per day [Active]; amlodipine 5 mg oral tab 1 tab fc once daily [Active]; biotin 2,500 mcg oral cap daily [Active]; Magnesium Oxide Oral 400 mg daily [Active]; Multi-Day Oral daily [Active]; Fish Oil Oral daily [Active]; Vitamin C 1,000 mg oral tab daily [Active]; - PMHx: 22:43 Bladder cancer; DVT; Hypertension; kidney problems; Anemia; fc - PSHx: 22:43 suprapubic cath; shoulder sx; Cholecystectomy; bladder sx; Appendectomy; fc - Immunization history:: Last tetanus immunization: unknown. - Social history:: Smoking status: Patient/guardian denies using tobacco, Patient/guardian denies using alcohol, street drugs. - Ebola Screening: : Patient negative for fever greater than or equal to 101.5 degrees Fahrenheit, and additional compatible Ebola Virus Disease symptoms Patient denies exposure to infectious person Patient denies travel to an Ebola-affected area in the 21 days before illness onset. Screenin:25 Abuse screen: Denies threats or abuse. Nutritional screening: No deficits noted. fc Tuberculosis screening: No symptoms or risk factors identified. Fall Risk None identified. Assessment: 23:00 General: Appears in no apparent distress. comfortable, Behavior is calm, cooperative, rr5 appropriate for age, before I'm not feeling good but not I'm okay.. Pain: Denies pain. Neuro: Level of Consciousness is awake, alert, obeys commands, Oriented to person, place, time, situation, Moves all extremities. Full function Speech is normal, Facial symmetry appears normal, Reports dizziness, after he took the home medications. weakness. Cardiovascular: Capillary refill < 3 seconds Patient's skin is warm and dry. Respiratory: Airway is patent Respiratory effort is even, unlabored, Respiratory pattern is regular, symmetrical. GI: No signs and/or symptoms were reported involving the gastrointestinal system. : Urine is cloudy, Reports i have a suprapubic catheter.i always have infection in my urine. 23:00 EENT: No signs and/or symptoms were reported regarding the EENT system. Derm: Skin is rr5 intact, Skin temperature is warm. Musculoskeletal: Capillary refill < 3 seconds, Range of motion: intact in all extremities. 11/26 00:05 Reassessment: Patient appears in no apparent distress at this time. Patient is alert, rr5 oriented x 3, equal unlabored respirations, skin warm/dry/pink. no complaints made. awaiting for laboratory reports Patient denies pain at this time. Patient states symptoms have improved. 01:20 Reassessment: Patient appears in no apparent distress at this time. Patient is alert, rr5 oriented x 3, equal unlabored respirations, skin warm/dry/pink. Patient states feeling better. 02:15 Reassessment: Patient appears in no apparent distress at this time. Patient is alert, rr5 oriented x 3, equal unlabored respirations, skin warm/dry/pink. discharge instruction given and explained without complaints made. accompanied by his walks across the hallway steady gait observed Patient denies pain at this time. Patient states feeling better. Patient states symptoms have improved. Vital Signs: 11/25 22:25 BP 147 / 73; Pulse 106; Resp 18; Temp 98.8(O); Pulse Ox 95% on R/A; Weight 76.66 kg fc (R); Height 5 ft. 7 in. (170.18 cm) (R); Pain 5/10; 23:30 BP 141 / 70; Pulse 95; Resp 17; Pulse Ox 99% on R/A; rr5 11/26 00:30 BP 125 / 70; Pulse 90; Resp 18; Pulse Ox 98% ; rr5 01:20 BP 121 / 67; Pulse 89; Resp 16; Pulse Ox 99% ; rr5 02:10 BP 107 / 66; Pulse 86; Resp 17; Temp 98.8; Pulse Ox 97% on R/A; Pain 0/10; rr5 11/25 22:25 Body Mass Index 26.47 (76.66 kg, 170.18 cm) ED Course: 11/25 22:25 Arm band placed on Patient placed in an exam room, on a stretcher. fc 22:25 Patient has correct armband on for positive identification. Bed in low position. Call fc light in reach. Side rails up X2. Pulse ox on. NIBP on. 22:25 No provider procedures requiring assistance completed. fc 22:32 Patient arrived in ED. fc 22:35 Triage completed. fc 23:04 Wilfred Kuhn NP is PHCP. pm1 23:04 Maximilian Jaimes MD is Attending Physician. pm1 23:39 Giancarlo Owens RN is Primary Nurse. rr5 23:50 First set of blood cultures drawn. mt 23:58 Inserted saline lock: 22 gauge in right antecubital area, using aseptic technique. mt Blood collected. 11/26 00:00 Patient moved to radiology via wheelchair. kw 00:00 X-ray completed. Patient tolerated procedure well. kw 00:00 Patient moved back from radiology. kw 00:02 Chest Pa And Lat (2 Views) XRAY In Process Unspecified. EDMS 02:15 IV discontinued. rr5 Administered Medications: 00:24 Drug: Xopenex 1.25 mg Route: Inhalation; rr5 02:15 Follow up: Response: No adverse reaction rr5 Outcome: 01:42 Discharge ordered by . pm1 02:15 Discharged to home ambulatory, with family. rr5 02:15 Condition: stable 02:15 Discharge instructions given to patient, family, Instructed on discharge instructions, follow up and referral plans. medication usage, Demonstrated understanding of instructions, follow-up care, medications, Prescriptions given X 1. 02:18 Patient left the ED. rr5 Signatures: Dispatcher [employer] EDMS Carly Harper, RN RN Felisha Rendon Patrick, NP [employer] pm1 Andre, Giancarlo Bojorquez mt, RN RN rr5
[2018-11-26 02:27] VITALS: BP 121/67; O2SAT 99
--- NOTE | 2018-11-26 08:34 | RAD REPORT ---
EXAM DESCRIPTION: Aishwarya Chun And Lat (2 Views)11/26/2018 12:04 am CLINICAL HISTORY: Cough COMPARISON: July 2018 FINDINGS: Mild chronic appearing lung opacities. The lungs appear clear of acute infiltrate. The heart is normal size IMPRESSION: No acute abnormalities displayed
--- NOTE | 2018-11-26 09:03 | EKG ---
Test Date: 2018-11-25 Test Time: 23:42:13 Garment Presser: LUANA MEASUREMENT RESULTS: Intervals: Rate: 95 SD: 262 QRSD: 84 QT: 354 QTc: 444 [place]: P: 89 SD: 262 QRS: -8 T: 76 INTERPRETIVE STATEMENTS: Sinus rhythm with 1st degree AV block with occasional premature ventricular complexes Otherwise normal ECG Compared to ECG 03/24/2017 08:41:31 Ventricular premature complex(es) now present Electronically Signed On 11-26-18 09:02:57 CDT by Bigg Heard
== END 2018-11-26 02:18 | disposition home or self-care (01) ==
LOC: ER 22:27
DX: J40 Bronchitis, not specified as acute or chronic (principal); I10 Essential (primary) hypertension; Z88.1 Allergy status to other antibiotic agents; Z85.51 Personal history of malignant neoplasm of bladder; Z86.718 Personal history of other venous thrombosis and embolism
CPT/HCPCS: 36415; 71046; 80048; 80076; 83605; 84145; 84484; 85025; 85610; 85730; 87040; 93005; 99284

== ENCOUNTER 2018-11-29 12:35 | Inpatient (IN) | payer OTHER ==
--- OUTSIDE RECORDS SUMMARY | 2018-11-29 12:37 | XMS REPORT | Clinical Summary ---
:1930 Author Organization [facility] Address [address] [place] [address] Care Team Providers Name Role Phone Reg [...] INFLUENZA VACCINE 03/13/2019 Results Not on fileafter 11/28/2017 Insurance Payer Benefit Plan / Group Subscriber ID Type Phone Address A[employer]NA MEDICARE AETNA MEDICARE HMO/PPO [facility] xxxxxxxx HMO Advance Directives Patient has advance care planning documents on file. For more information, please contact:[facility] [place] [address]
--- OUTSIDE RECORDS SUMMARY | 2018-11-29 12:38 | XMS REPORT | Clinical Summary ---
:1930 Author Organization [facility] Address [address] [place] [address] Care Team Providers Name Role Phone Unknownmeds, [...] Type Specialty Care Team Description 07/21/2018 - [facility] Internal Changela, Other hydronephrosis ( Primary Dx); 07/24/2018 Encounter Medicine Milly Patiño MD Suprapubic catheter ([facility]); Fortino, Urinary tract infection associated with catheterization of urinary tract, unspecified indwelling urinary catheter type, initial encounter ( [facility]); MD Alber CKD stage 4 secondary to hypertension ([facility]); Betty Gudino Other vitamin B12 deficiency anemia; MD Marianne Bacteremia due to Escherichia coli after 11/28/2017 Social History Tobacco Use Types Packs/Day Years [...] Taken Blood Pressure 116/57 07/24/2018 2:49 PM [facility] Pulse 87 07/24/2018 2:49 PM [facility] Temperature 36.8 C (98.3 F) 07/24/2018 2:49 PM [facility] Respiratory Rate 18 07/24/2018 2:49 PM [facility] Oxygen Saturation 97% 07/24/2018 2:49 PM [facility] Inhaled Oxygen Concentration - - Weight 78.1 kg (172 lb 2.9 oz) 07/21/2018 3:52 AM [facility] Height 167.6 cm (5' 6") 07/21/2018 3:52 AM [facility] Body Mass Index 27.79 07/21/2018 3:52 AM [facility] Plan of Treatment Not on file Procedures Procedure Name Priority Date/Time Associated Comments Diagnosis [place] CYSTOGRAM STATIC Routine 07/24/2018 1:15 Results for this PM [facility] procedure are in the results section. CBC W/PLT COUNT & Routine 07/24/2018 5:17 Results for this AUTO DIFFERENTIAL AM [facility] procedure are in the results section. BASIC METABOLIC PANEL Routine 07/24/2018 5:17 Results for this (7) AM [facility] procedure are in the results section. CBC W/PLT COUNT & Routine 07/24/2018 5:17 Results for this AUTO DIFFERENTIAL AM [facility] procedure are in the results section. XR CHEST 1 VIEW Routine 07/23/2018 6:23 Results for this PORTABLE/BEDSIDE PM [facility] procedure are in the results section. URINALYSIS W/ REFLEX Routine 07/23/2018 8:58 Results for this URINE CULTURE AM [facility] procedure are in the results section. URINE CULTURE Routine 07/23/2018 8:58 Results for this AM [facility] procedure are in the results section. URINE CULTURE Routine 07/23/2018 8:58 Results for this AM [facility] procedure are in the results section. US RENAL COMPLETE Routine 07/23/2018 8:14 Results for this AM [facility] procedure are in the results section. CBC W/PLT COUNT & Routine 07/23/2018 6:34 Results for this AUTO DIFFERENTIAL AM [facility] procedure are in the results section. BASIC METABOLIC PANEL Routine 07/23/2018 6:34 Results for this (7) AM [facility] procedure are in the results section. CBC W/PLT COUNT & Routine 07/23/2018 6:34 Results for this AUTO DIFFERENTIAL AM [facility] procedure are in the results section. BLOOD CULTURE Routine 07/22/2018 10:03 Results for this AM [facility] procedure are in the results section. BLOOD CULTURE Routine 07/22/2018 9:59 Results for this AM [facility] procedure are in the results section. CBC W/PLT COUNT & Routine 07/22/2018 4:26 Results for this AUTO DIFFERENTIAL AM [facility] procedure are in the results section. BASIC METABOLIC PANEL Routine 07/22/2018 4:26 Results for this (7) AM [facility] procedure are in the results section. CBC W/PLT COUNT & Routine 07/22/2018 4:26 Results for this AUTO DIFFERENTIAL AM [facility] procedure are in the results section. VITAMIN B12 AND Routine 07/22/2018 4:26 Results for this FOLATE AM [facility] procedure are in the results section. URINE CULTURE STAT 07/21/2018 9:55 Results for this AM [facility] procedure are in the results section. BASIC METABOLIC PANEL Routine 07/21/2018 9:45 Results for this (7) AM [facility] procedure are in the results section. CBC W/PLT COUNT & Routine 07/21/2018 6:12 Results for this AUTO DIFFERENTIAL AM [facility] procedure are in the results section. APTT Routine 07/21/2018 6:12 Results for this AM [facility] procedure are in the results section. PROTHROMBIN TIME/INR STAT 07/21/2018 6:12 Results for this AM [facility] procedure are in the results section. FERRITIN Routine 07/21/2018 6:12 Results for this AM [facility] procedure are in the results section. IRON, TIBC, % SAT. Routine 07/21/2018 6:12 Results for this (WITHOUT FERRITIN) AM [facility] procedure are in the results section. CBC W/PLT COUNT & Routine 07/21/2018 6:12 Results for this AUTO DIFFERENTIAL AM [facility] procedure are in the results section. after 11/28/2017 Results [place] cystogram static (07/24/2018 1:15 PM [facility]) Specimen Narrative Performed At FINAL REPORT GE [facility] Static cystogram: Reason for exam: Reflux, [...] MD Report Verified Date/Time:07/24/2018 13:39:30 Reading Location: [facility] C0X Ortho Consult Reading Room Procedure Note Interface, External Ris In - 07/24/2018 5:38 PM [facility] FINAL REPORT Static cystogram: Reason for exam: [...] Report Verified Date/Time: 07/24/2018 13:39:30 Reading Location: [facility] B1 [id number] Ortho Consult Reading Room Performing Organization Address City/State/Zipcode Phone Number GE RIS CBC with platelet count + automated diff (07/24/2018 5:17 AM [facility])Only the most recent of4 resultswithin the time period is included. WBC 9.6 3.5 - 10.5 K/L [facility] RBC 3.63 (L) 4.63 - 6.08 M/L [facility] Hemoglobin 11.5 (L) 13.7 - 17.5 GM/DL [facility] Hematocrit 36.1 (L) 40.1 - 51.0 % [facility] MCV 99.4 (H) 79.0 - 92.2 fL [facility] MCH 31.7 25.7 - 32.2 pg [facility] MCHC 31.9 (L) 32.3 - 36.5 GM/DL [facility] RDW 13.1 11.6 - 14.4 % [facility] Platelets 362 150 - 450 K/CU MM [facility] MPV 9.6 9.4 - 12.4 fL [facility] nRBC 0 0 - 0 /100 WBC [facility] % Neutros 61 % [facility] % Lymphs 20 % [facility] % Monos 13 % [facility] % Eos 6 % [facility] % Baso 0 % [facility] # Neutros 5.82 (H) 1.78 - 5.38 K/L [facility] # Lymphs 1.88 1.32 - 3.57 K/L [facility] # Monos 1.21 (H) 0.30 - 0.82 K/L [facility] # Eos 0.58 (H) 0.04 - 0.54 K/L [facility] # Baso 0.04 0.01 - 0.08 K/L [facility] Immature Granulocytes-Relative 1 0 - 1 % [facility] Specimen Blood Performing Organization Address City/State/Zipcode Phone Number [facility] [address] [place] [address] CENTER Basic Metabolic Panel (07/24/2018 5:17 AM [facility])Only the most recent of4 resultswithin the time period is included. Sodium 138 136 - 145 meq/L [facility] Potassium 4.4 3.5 - 5.1 meq/L [facility] Chloride 110 (H) 98 - 107 meq/L [facility] CO2 15 (L) 22 - 29 meq/L [facility] BUN 35 (H) 7 - 21 mg/dL [facility] Creatinine 2.07 (H) 0.57 - 1.25 mg/dL [facility] Glucose 90 70 - 105 mg/dL [facility] Calcium 9.5 8.4 - 10.2 mg/dL [facility] EGFR 31Comment: ESTIMATED GFR IS mL/min/1.73 sq m [facility] NOT ACCURATE [facility] CLEARANCE IN PREDICTING GLOMERULAR FILTRATION RATE. ESTIMATED GFR IS NOT APPLICABLE FOR DIALYSIS PATIENTS. Specimen Blood Performing Organization Address City/State/Zipcode Phone Number [facility] MEDICAL [address] [place] [address] CENTER XR chest 1 view portable / bedside (07/23/2018 6:23 PM [facility]) Specimen Narrative Performed At FINAL REPORT RIS Chest [...] MD Report Verified Date/Time:07/23/2018 18:46:30 Reading Location: [facility] Radiology Reading Room Procedure Note Interface, External Ris In - 07/23/2018 6:48 PM [facility] FINAL REPORT Chest one view AP 07/23/2018 6:46 PM CLINICAL INDICATION: eval for PNA COMPARISON: None available IMPRESSION: Subsegmental opacity in the right lung base may reflect atelectasis or pneumonia. There is linear atelectasis in the left lung base. Cardiomediastinal contours are within normal limits. The central pulmonary vasculature is not engorged. Signed: Robe Bartlett MD Report Verified Date/Time: 07/23/2018 18:46:30 Reading Location: [facility] Radiology Reading Room Performing Organization Address City/State/Zipcode Phone Number RIS Urinalysis w/Microscopic + Reflex to Culture (07/23/2018 8:58 AM [facility]) Color, UA Yellow [facility] Clarity, UA Hazy [facility] Specific [place], UA 1.010 1.001 - 1.035 [facility] pH, UA 5.5 5.0 - 8.0 [facility] Protein, UA 30 mg/dL (A) Negative [facility] Glucose, UA Negative Negative [facility] Ketones, UA Negative Negative [facility] Bilirubin, UA Negative Negative [facility] Blood, UA Trace (A) Negative [facility] Nitrite, UA Negative Negative [facility] Leukocytes, UA Large (A) Negative [facility] Urobilinogen, UA 0.2 0.2 - 1.0 mg/dL [facility] RBC, UA 6 /HPF [facility] WBC, UA 164 /HPF [facility] Bacteria, UA Rare [facility] Casts 1 /LPF [facility] Specimen Source [facility] Specimen Urine Performing Organization Address City/State/Zipcode Phone Number [facility] [address] [place] [address] [phone] [place] Urine culture (07/23/2018 8:58 AM [facility])Only the most recent of3 resultswithin the time period is included. Result No growth [facility] Specimen Urine Performing Organization Address City/State/Zipcode Phone Number [facility] [address] [place] [phone] [place] US renal complete (07/23/2018 8:14 AM [facility]) Specimen Narrative Performed At FINAL REPORT [facility] Ultrasound of the Kidneys, 07/23/2018. Clinical History: [...] MD Report Verified Date/Time:07/23/2018 17:47:46 Reading Location: [address] Ultrasound Reading Room Procedure Note Interface, External Ris In - 07/23/2018 5:49 PM [facility] FINAL REPORT Ultrasound of the Kidneys, 07/23/2018. [...] conduit. IMPRESSION: Moderate bilateral hydronephrosis. Signed: Juanito Hernanedz MD Report Verified Date/Time: 07/23/2018 17:47:46 Reading Location: [address] Ultrasound Reading Room Performing Organization Address City/[facility] Cent[facility] Phone Number GE [facility] Blood culture (07/22/2018 10:03 AM [facility])Only the most recent of2 resultswithin the time period is included. Result No growth in 5 days [facility] Specimen Blood Performing Organization Address [facility] Centercode Phone Number [address] [address] [place] Vitamin B12 and Folate (07/22/2018 4:26 AM [facility]) Vitamin B12 <146 (L) 213 - 816 pg/mL [facility] Folate 16.2 >=7.0 ng/mL [facility] Specimen Blood Performing Organization Address [facility] [place] [place] Phone Number [address] [address] [place] Iron, TIBC, % sat. (without ferritin) (07/21/2018 6:12 AM [facility]) Iron 83 40 - 160 ug/dL [facility] TIBC 304 250 - 450 ug/dL [facility] Iron % Saturation 27 20 - 55 % [facility] Specimen Blood Performing Organization Address [facility] [place] [place] Phone Number [address] [address] [place] aPTT (07/21/2018 6:12 AM [facility]) PTT 28.7 22.5 - 36.0 seconds [facility] Specimen Blood Performing Organization Address [facility] Centercoco Phone Number [address] [address] [place] Prothrombin time/INR (07/21/2018 6:12 AM [facility]) Protime 14.6 11.7 - 14.7 seconds [facility] INR 1.1 <=5.9 [facility] Specimen Blood Narrative Performed At RECOMMENDED COUMADIN/WARFARIN INR THERAPY [facility] RANGES STANDARD DOSE: 2.0 - 3.0 Includes: PROPHYLAXIS for venous thrombosis, systemic embolization; TREATMENT for venous thrombosis and/or pulmonary embolus. HIGH RISK: Target INR is 2.5-3.5 for patients with mechanical heart valves. Performing Organization Address City/State/Zipcode Phone Number [address] [phone] CENTER Ferritin (07/21/2018 6:12 AM [facility]) Ferritin 250 5 - 275 ng/mL [facility] Specimen Blood Performing Organization Address City/[facility]/Zipcode Phone Number [address] [address] CENTER after 11/28/2017 Insurance Payer Benefit Plan / Subscriber ID Type Phone Address Group AETNA - MEDICARE AETNA MEDICARE O xxxxxxxx [phone] [address] [place] [address] Advance Directives For more information, please contact:[address] [phone] Code Status Date Activated Date Inactivated Comments Full Code 07/21/2018 4:39 AM This code status was determined by: Patient
--- OUTSIDE RECORDS SUMMARY | 2018-11-29 12:39 | XMS REPORT | Continuity of Care Document ---
:1930 Author Organization [facility] Care Team Providers Name Role Phone MD [...] AETNA - MATT CHEMICAL (MEDICARE SUPPLEMENT) AETNA [[id number]] [place] [employer] AETNA - [place] CHEMICAL (MEDICARE SUPPLEMENT) AETNA [[id number]] [place] [employer] AETNA - [place] CHEMICAL (MEDICARE SUPPLEMENT) AETNA [[id number]] [place] [employer] AETNA - [place] CHEMICAL (MEDICARE SUPPLEMENT) AETNA [[id number]] [place] [employer] AETNA - [place] CHEMICAL (MEDICARE SUPPLEMENT) Encounters Encounter Performer Location Date Lab Report Reg Abrams MD [facility] Apr 06, 2014 Problems Problem Effective Dates [...] 2012Jul 15, platelet count PLATELETS 404 K/CMM [phone] /mm3 Apr 06, cholesterol, serum CHOLESTEROL 160 [...]
--- OUTSIDE RECORDS SUMMARY | 2018-11-29 12:39 | XMS REPORT | Continuity of Care Document ---
:1930 Author Organization [facility] Care Team Providers Name Role Phone MD [...] AETNA - [place]ATT CHEMICAL (MEDICARE SUPPLEMENT) AETNA [[id number]] [place] [employer] AETNA - [place] CHEMICAL (MEDICARE SUPPLEMENT) AETNA [[id number]] [place] [employer] AETNA - [place] CHEMICAL (MEDICARE SUPPLEMENT) AETNA [[id number]] [place] [employer] AETNA - [place]ATT CHEMICAL (MEDICARE SUPPLEMENT) AETNA [[id number]] [place] [employer] AETNA - [place]ATT CHEMICAL (MEDICARE SUPPLEMENT) Encounters Encounter Performer Location Date Office Visit Reg Abrams MD [facility] Apr 09, 2014 Problems Problem Effective Dates [...] 2012Jul 15, platelet count PLATELETS 404 K/CMM [phone] /mm3 Apr 06, cholesterol, serum CHOLESTEROL 160 [...]
--- OUTSIDE RECORDS SUMMARY | 2018-11-29 12:39 | XMS REPORT | Continuity of Care Document ---
:1930 Author Organization [facility] Care Team Providers Name [...] AETNA - MATT CHEMICAL (MEDICARE SUPPLEMENT) AETNA [[id number]] [place] [employer] AETNA - [place]ATT CHEMICAL (MEDICARE SUPPLEMENT) AETNA [[id number]] [place] [employer] AETNA - [place] CHEMICAL (MEDICARE SUPPLEMENT) AETNA [[id number]] [place] [employer] AETNA - [place] CHEMICAL (MEDICARE SUPPLEMENT) AETNA [[id number]] [place] [employer] AETNA - [place]ATT CHEMICAL (MEDICARE SUPPLEMENT) Encounters Encounter Performer Location Date Office Visit Reg Abrams MD [facility] Apr 06, 2014 Problems Problem [...] 2012Jul 15, platelet count PLATELETS 404 K/CMM [phone] /mm3 Jul 15, prostate specific PSA < 0.01 0.00-4.00 2012 antigen ng/mL ng/mL Jul 15, carcinoembryonic CEA 14.9 ng/mL 0.0-3.0 High 2013 antigen
--- OUTSIDE RECORDS SUMMARY | 2018-11-29 12:39 | XMS REPORT | Continuity of Care Document ---
:1930 Author Organization [facility] Care Team Providers Name Role Phone MD [...] AETNA - MATT CHEMICAL (MEDICARE SUPPLEMENT) AETNA [[id number]] [place] [employer] AETNA - [place]ATT CHEMICAL (MEDICARE SUPPLEMENT) AETNA [[id number]] [place] [employer] AETNA - MATT CHEMICAL (MEDICARE SUPPLEMENT) AETNA [[id number]] [place] [employer] AETNA - MATT CHEMICAL (MEDICARE SUPPLEMENT) AETNA [[id number]] [place] [employer] AETNA - MATT CHEMICAL (MEDICARE SUPPLEMENT) AETNA [[id number]] [place] [employer] AETNA - MATT CHEMICAL (MEDICARE SUPPLEMENT) AETNA [[id number]] [place] [employer] AETNA - MATT CHEMICAL (MEDICARE SUPPLEMENT) AETNA [[id number]] [place] [employer] AETNA - MATT CHEMICAL (MEDICARE SUPPLEMENT) Encounters Encounter Performer Location Date Office Visit Reg Abrams MD [facility] Jun 24, 2014 Problems Problem Effective Dates [...] 2012Jul 15, platelet count PLATELETS 404 K/CMM [phone] /mm3 Apr 06, cholesterol, serum CHOLESTEROL 160 [...]
--- OUTSIDE RECORDS SUMMARY | 2018-11-29 12:39 | XMS REPORT | Continuity of Care Document ---
[...] Group Vax) has been administered influenza 06/11/2012 [facility] Medical immunization (Flu Group Vax) has been administered influenza 08/17/2009 [facility] Medical immunization (Flu Group Vax) has been administered influenza 04/15/2009 [facility] Medical immunization (Flu Group Vax) has been administered influenza 05/14/2008 [facility] Medical immunization (Flu Group Vax) has been administered influenza 05/24/2007 [facility] Medical immunization (Flu Group Vax) has been administered pneumococcal 09/18/2006 [facility] Medical immunization Group administered Results Order Name [...] Chemistry BUN/CREAT 18 6 - 25 2014 [facility] Group Chemistry ALBUMIN 5.0 3.5 [...] Type Number For Provider Date Date Visit [facility] Lab Report [id number] Radha04/06 Chidi 420 [facility] Office [id number] 04/06 [place] Visit 520 [facility] Office [id number] 04/09 [place] Visit 810 [facility] MD [facility] Office [id number] 06/24 [place] Visit 690 [facility] Office [id number] 12/25 Chidi Visit 550 [facility] Office [id number] 01/25 Chidi Visit 680 [facility] MD [facility] Group [facility] Outpatient [id number] RADHA 05/07 [facility] [place] Outpatient [id number] RADHA 07/22 [facility] [place] Outpatient [id number] RADHA 08/19 [facility] [place] Outpatient [id number] RADHA08/26 [facility] [place] Outpatient [id number] RADHA 09/15 [facility] [place] Outpatient [id number] RADHA 11/04 [facility] [place] Outpatient [id number] RADHA12/27 [facility] Chidi Procedures Procedure Code Date Perfomer Comments Source colonoscopy [id number] 01/16/2012 [facility] colonoscopy 14089 01/16/2012 [facility] bone density 4002.65 07/13/2003 [facility]
--- OUTSIDE RECORDS SUMMARY | 2018-11-29 12:40 | XMS REPORT | Continuity of Care Document ---
:1930 Author Organization [facility] Care Team Providers Name Role Phone MD Abrams Luis Unavailable Unavailable Insurance Providers Payer name Policy type / Policy ID Covered republican ID Policy Andrews Coverage type [place] [...] AETNA - [place] CHEMICAL (MEDICARE SUPPLEMENT) AETNA [[id number]] [place] [employer] AETNA - [place] CHEMICAL (MEDICARE SUPPLEMENT) AETNA [[id number]] [place] [employer] AETNA - MATT CHEMICAL (MEDICARE SUPPLEMENT) AETNA [[id number]] [place] [employer] AETNA - MATT CHEMICAL (MEDICARE SUPPLEMENT) AETNA [[id number]] [place] [employer] AETNA - MATT CHEMICAL (MEDICARE SUPPLEMENT) AETNA [[id number]] [place] [employer] AETNA - MATT CHEMICAL (MEDICARE SUPPLEMENT) AETNA [[id number]] [place] AETNA - MATT CHEMICAL (MEDICARE SUPPLEMENT) AETNA [[id number]] [place] [employer] AETNA - MATT CHEMICAL (MEDICARE SUPPLEMENT) AETNA (MEDICARE REPLACEMENT [place] PPO) AETNA [[id number]] [place] [employer] AETNA - MATT CHEMICAL (MEDICARE SUPPLEMENT) AETNA [[id number]] [place] [employer] AETNA - MATT CHEMICAL (MEDICARE SUPPLEMENT) AETNA [[id number]] [place] [employer] AETNA - [facility] (MEDICARE SUPPLEMENT) Encounters Encounter Performer Location Date Office Visit Reg Abrams MD [facility] Jan 25, 2015 Problems Problem Effective [...] 2012Jul 15, platelet count PLATELETS 404 K/CMM [phone] /mm3 Apr 06, cholesterol, serum CHOLESTEROL 160 [...]
--- OUTSIDE RECORDS SUMMARY | 2018-11-29 12:40 | XMS REPORT | Continuity of Care Document ---
:1930 Author Organization [facility] Care Team Providers Name Role [...] AETNA - [employer] (MEDICARE SUPPLEMENT) AETNA [[id number]] MEDIC[place]: [place] [employer] AETNA - [employer] [employer] (MEDICARE SUPPLEMENT) AETNA [[id number]] MEDIC[place]: [place] AETNA - [employer] (MEDICARE SUPPLEMENT) AETNA [[id number]] MEDIC[place]: [employer] AETNA - [employer] (MEDICARE SUPPLEMENT) AETNA [[id number]] MEDIC[place]: [place] AETNA - [employer] (MEDICARE SUPPLEMENT) AETNA [[id number]] MEDIC[place]: [place] AETNA - [employer] (MEDICARE SUPPLEMENT) AETNA [[id number]] MEDIC[place]: [employer] AETNA - [employer] (MEDICARE SUPPLEMENT) AETNA [[id number]] MEDIC[place]: [place] AETNA - [employer] (MEDICARE SUPPLEMENT) AETNA (MEDICARE REPLACEMENT BREND[place] PPO) AETNA [[id number]] MED[place]: [employer] AETNA - [employer] (MEDICARE SUPPLEMENT) AETNA [[id number]] MEDICARE [place]: [employer] AETNA - [employer] (MEDICARE SUPPLEMENT) Encounters Encounter Performer Location Date Office Visit Reg Abrams MD [facility] December 25, 2014 Problems Problem Effective Dates [...] 2012Jul 15, platelet count PLATELETS 404 K/CMM [phone] /mm3 Apr 06, cholesterol, serum CHOLESTEROL 160 [...]
--- OUTSIDE RECORDS SUMMARY | 2018-11-29 12:40 | XMS REPORT | Continuity of Care Document ---
:1930 Author Organization [facility] Care Team Providers Name Role Phone [...] AETNA - [employer] (MEDICARE SUPPLEMENT) AETNA [[id number]] MEDICARE [place]: [employer] AETNA - [employer] (MEDICARE SUPPLEMENT) AETNA [[id number]] MEDICARE B-[place]: [employer] AETNA - [employer] (MEDICARE SUPPLEMENT) AETNA [[id number]] MEDICARE B-[place]: [employer] AETNA - MATT CHEMICAL (MEDICARE SUPPLEMENT) AETNA [[id number]] MEDICARE B-[place]: [employer] AETNA - M[employer] (MEDICARE SUPPLEMENT) AETNA [[id number]] MEDICARE B-[place]: [employer] AETNA - [employer] (MEDICARE SUPPLEMENT) AETNA [[id number]] MEDICARE B-[place]: [employer]IONS AETNA - [employer] (MEDICARE SUPPLEMENT) AETNA [[id number]] MEDICARE B-[place]: [employer] AETNA - [employer] (MEDICARE SUPPLEMENT) AETNA (MEDICARE REPLACEMENT BRENDAN PPO) AETNA [[id number]] MEDICARE [place]: [employer] AETNA - [employer] (MEDICARE SUPPLEMENT) AETNA [[id number]] MEDICARE [place]: [employer] AETNA - [employer] (MEDICARE SUPPLEMENT) AETNA [[id number]] MEDICARE B-[place]: [employer] AETNA - [employer] (MEDICARE SUPPLEMENT) Encounters Encounter Performer Location Date Office Visit Reg Abrams MD [facility] Jan 25, 2015 Problems Problem Effective Dates [...] 2012Jul 15, platelet count PLATELETS 404 K/CMM [phone] /mm3 Jan 25, hemoglobin, blood HGB 13.5 g/dL 14.0-18.0 Low 2014Jan 25, hematocrit, blood HCT 39.8 % 42.0-54.0 Low 2014Jan 25, platelet count PLATELETS 308 K/CMM [phone] /mm3 Apr 06, cholesterol, serum CHOLESTEROL 160 [...] Jan 25, sodium, serum SODIUM 141 MEQ/L [phone] mmol/L Jan 25, potassium, serum POTASSIUM 4.9 [...]
--- OUTSIDE RECORDS SUMMARY | 2018-11-29 12:41 | XMS REPORT ---
:1930 [facility] Address [address] [place] [address] Dr. Romero [address] [place] [id number] Care Team Providers Name Role Phone TOBIN MAHAN Unavailable Unavailable Problems This patient has no known problems. Allergies, Adverse Reactions, Alerts This patient has no known allergies or adverse reactions. Medications This patient has no known medications. Results Test Description Test Time Test Comments Text Results Atomic Results Result Comments BLOOD CULTURE 2018-07-27 17:01:00 Test Item Value Reference Range Comments CULTURE (BEAKER) (test vdsn=6574) No growth in 5 days BLOOD [id number] 17:01:00 Test Item Value Reference Range Comments CULTURE (BEAKER) (test drts=2555) No growth in 5 days URINE [id number] 08:42:00 Test Item Value Reference Range Comments CULTURE (BEAKER) (test jqmd=1162) No growth FL, CYSTOGRAM, [id number] 13:39:00Reason for exam:->Evaluate for erflux , KATHY [...] MDReport Verified Date/Time: 07/2018 13:39:30 Reading Location: [facility] B1 C013X Ortho Consult Reading Room [facility] METABOLIC [id number] 06:35:00 Test Item Value Reference Range Comments SODIUM (BEAKER) (test 138 meq/L 136-145 kjiz=465) POTASSIUM (BEAKER) (test 4.4 meq/L 3.5-5.1 dbty=848) CHLORIDE (BEAKER) (test 110 meq/L 98-107 yykr=940) CO2 (BEAKER) (test 15 meq/L 22-29 jdnc=294) BLOOD UREA NITROGEN 35 mg/dL 7-21 (BEAKER) (test ptqb=256) CREATININE (BEAKER) (test 2.07 mg/dL 0.57-1.25 rsba=818) GLUCOSE RANDOM (BEAKER) 90 mg/dL 70-105 (test kcsm=519) CALCIUM (BEAKER) (test 9.5 mg/dL 8.4-10.2 xnee=361) EGFR (BEAKER) (test 31 mL/min/1.73 sq m ESTIMATED GFR IS NOT vquc=0516) ACCURATE CREATININE CLEARANCE IN PREDICTING GLOMERULAR FILTRATION RATE. ESTIMATED GFR IS NOT APPLICABLE FOR DIALYSIS PATIENTS. CBC W/PLT COUNT & AUTO [id number] 06:18:00 Test Item Value Reference Range Comments WHITE BLOOD CELL COUNT (BEAKER) (test goay=431) 9.6 K/ L 3.5-10.5 RED BLOOD CELL COUNT (BEAKER) (test amue=581) 3.63 M/ L 4.63-6.08 HEMOGLOBIN (BEAKER) (test wvis=214) 11.5 GM/DL 13.7-17.5 HEMATOCRIT (BEAKER) (test awwm=898) 36.1 % 40.1-51.0 MEAN CORPUSCULAR VOLUME (BEAKER) (test jpou=402) 99.4 fL 79.0-92.2 MEAN CORPUSCULAR HEMOGLOBIN (BEAKER) (test 31.7 pg 25.7-32.2 cwyi=096) MEAN CORPUSCULAR HEMOGLOBIN CONC (BEAKER) (test 31.9 GM/DL 32.3-36.5 syxt=565) RED CELL DISTRIBUTION WIDTH (BEAKER) (test 13.1 % 11.6-14.4 vgbp=200) PLATELET COUNT (BEAKER) (test oxjr=436) 362 K/CU MM 150-450 MEAN PLATELET VOLUME (BEAKER) (test zurz=550) 9.6 fL 9.4-12.4 NUCLEATED RED BLOOD CELLS (BEAKER) (test 0 /100 WBC 0-0 jvxv=484) NEUTROPHILS RELATIVE PERCENT (BEAKER) (test 61 % qaro=105) LYMPHOCYTES RELATIVE PERCENT (BEAKER) (test 20 % xbkp=322) MONOCYTES RELATIVE PERCENT (BEAKER) (test 13 % zdnq=093) EOSINOPHILS RELATIVE PERCENT (BEAKER) (test 6 % qsni=790) BASOPHILS RELATIVE PERCENT (BEAKER) (test 0 % llfm=718) NEUTROPHILS ABSOLUTE COUNT (BEAKER) (test 5.82 K/ L 1.78-5.38 fgxq=229) LYMPHOCYTES ABSOLUTE COUNT (BEAKER) (test 1.88 K/ L 1.32-3.57 ifkr=454) MONOCYTES ABSOLUTE COUNT (BEAKER) (test 1.21 K/ L 0.30-0.82 jfes=237) EOSINOPHILS ABSOLUTE COUNT (BEAKER) (test 0.58 K/ L 0.04-0.54 qwrk=516) BASOPHILS ABSOLUTE COUNT (BEAKER) (test 0.04 K/ L 0.01-0.08 tsim=669) IMMATURE GRANULOCYTES-RELATIVE PERCENT (BEAKER) 1 % 0-1 (test gjmf=3956) RAD, CHEST, 1 VIEW, NON [id number] 18:46:00Reason for exam:->eval for PNAShould this be [...] ROBE BARTLETT M.D. on 06:46 PMU/S, RENAL, [id number] 17:47:00Reason for exam:-> hydronephrosis in jaydon pouchFINAL [...] Hernandezeport Verified Date/Time: 07/23/2018 17:47:46 Reading Location: [facility] P006J Ultrasound Reading Room URINALYSIS W/ REFLEX URINE [id number] 10:02:00 Test Item Value Reference Range Comments COLOR (BEAKER) (test klfy=317) Yellow CLARITY (BEAKER) (test ertd=079) Hazy SPECIFIC GRAVITY UA (BEAKER) (test ofmn=342) 1.010 1.001-1.035 PH UA (BEAKER) (test iihi=813) 5.5 5.0-8.0 PROTEIN UA (BEAKER) (test aklf=835) 30 mg/dL Negative GLUCOSE UA (BEAKER) (test wfim=162) Negative Negative KETONES UA (BEAKER) (test awzj=503) Negative Negative BILIRUBIN UA (BEAKER) (test vhyi=970) Negative Negative BLOOD UA (BEAKER) (test yygy=811) Trace Negative NITRITE UA (BEAKER) (test zbgn=423) Negative Negative LEUKOCYTE ESTERASE UA (BEAKER) (test asoo=672) Large Negative UROBILINOGEN UA (BEAKER) (test zxsd=463) 0.2 mg/dL 0.2-1.0 RBC UA (BEAKER) (test vfjs=848) 6 /HPF WBC UA (BEAKER) (test fdwz=490) 164 /HPF BACTERIA (BEAKER) (test bbxj=013) Rare CASTS (BEAKER) (test jlja=5888) 1 /LPF SOURCE(BEAKER) (test ghnz=7808) BASIC METABOLIC [id number] 07:13:00 Test Item Value Reference Range Comments SODIUM (BEAKER) (test 139 meq/L 136-145 sjgg=114) POTASSIUM (BEAKER) (test 4.2 meq/L 3.5-5.1 mjcp=360) CHLORIDE (BEAKER) (test 112 meq/L 98-107 uqib=241) CO2 (BEAKER) (test 19 meq/L 22-29 stiy=778) BLOOD UREA NITROGEN 37 mg/dL 7-21 (BEAKER) (test ptqt=234) CREATININE (BEAKER) (test 2.20 mg/dL 0.57-1.25 jimj=932) GLUCOSE RANDOM (BEAKER) 96 mg/dL 70-105 (test cqpq=852) CALCIUM (BEAKER) (test 9.3 mg/dL 8.4-10.2 glex=388) EGFR (BEAKER) (test 29 mL/min/1.73 sq m ESTIMATED GFR IS NOT otuk=6618) ACCURATE CREATININE CLEARANCE IN PREDICTING GLOMERULAR FILTRATION RATE. ESTIMATED GFR IS NOT APPLICABLE FOR DIALYSIS PATIENTS. CBC W/PLT COUNT & AUTO [id number] 06:54:00 Test Item Value Reference Range Comments WHITE BLOOD CELL COUNT (BEAKER) (test tpkr=823) 7.4 K/ L 3.5-10.5 RED BLOOD CELL COUNT (BEAKER) (test ihbh=387) 3.33 M/ L 4.63-6.08 HEMOGLOBIN (BEAKER) (test gncs=402) 10.6 GM/DL 13.7-17.5 HEMATOCRIT (BEAKER) (test cksf=610) 32.8 % 40.1-51.0 MEAN CORPUSCULAR VOLUME (BEAKER) (test nvfa=551) 98.5 fL 79.0-92.2 MEAN CORPUSCULAR HEMOGLOBIN (BEAKER) (test 31.8 pg 25.7-32.2 cmdp=098) MEAN CORPUSCULAR HEMOGLOBIN CONC (BEAKER) (test 32.3 GM/DL 32.3-36.5 bqwv=298) RED CELL DISTRIBUTION WIDTH (BEAKER) (test 13.2 % 11.6-14.4 djxi=579) PLATELET COUNT (BEAKER) (test fylj=738) 322 K/CU MM 150-450 MEAN PLATELET VOLUME (BEAKER) (test wpet=914) 9.3 fL 9.4-12.4 NUCLEATED RED BLOOD CELLS (BEAKER) (test 0 /100 WBC 0-0 lfgk=159) NEUTROPHILS RELATIVE PERCENT (BEAKER) (test 61 % qpqa=576) LYMPHOCYTES RELATIVE PERCENT (BEAKER) (test 20 % ajhk=548) MONOCYTES RELATIVE PERCENT (BEAKER) (test 13 % krha=614) EOSINOPHILS RELATIVE PERCENT (BEAKER) (test 5 % xlyk=017) BASOPHILS RELATIVE PERCENT (BEAKER) (test 0 % rfpo=753) NEUTROPHILS ABSOLUTE COUNT (BEAKER) (test 4.50 K/ L 1.78-5.38 walg=801) LYMPHOCYTES ABSOLUTE COUNT (BEAKER) (test 1.47 K/ L 1.32-3.57 sccc=899) MONOCYTES ABSOLUTE COUNT (BEAKER) (test 0.97 K/ L 0.30-0.82 lrpc=886) EOSINOPHILS ABSOLUTE COUNT (BEAKER) (test 0.37 K/ L 0.04-0.54 twug=506) BASOPHILS ABSOLUTE COUNT (BEAKER) (test 0.03 K/ L 0.01-0.08 sfax=749) IMMATURE GRANULOCYTES-RELATIVE PERCENT (BEAKER) 1 % 0-1 (test tjpy=3653) URINE [id number] 11:17:00 Test Item Value Reference Range Comments CULTURE (BEAKER) (test naea=6553) See comment 20-29,000 col/mL enteric organisms of >3 types. No further workup performed. Multiple organisms suggestive of colonization or contamination. Repeat collection recommended.VITAMIN B12 AND [id number] 06:08:00 Test Item Value Reference Range Comments VITAMIN B12 (BEAKER) (test unzu=204) < pg/mL 213-816 FOLATE (BEAKER) (test yyhx=134) 16.2 ng/mL >=7.0 BASIC METABOLIC [id number] 05:46:00 Test Item Value Reference Range Comments SODIUM (BEAKER) (test 140 meq/L 136-145 mlev=665) POTASSIUM (BEAKER) (test 4.4 meq/L 3.5-5.1 oloe=855) CHLORIDE (BEAKER) (test 115 meq/L 98-107 qbek=593) CO2 (BEAKER) (test 15 meq/L 22-29 ogkg=781) BLOOD UREA NITROGEN 49 mg/dL 7-21 (BEAKER) (test xbyu=034) CREATININE (BEAKER) (test 3.20 mg/dL 0.57-1.25 mvfa=470) GLUCOSE RANDOM (BEAKER) 93 mg/dL 70-105 (test kcju=078) CALCIUM (BEAKER) (test 9.1 mg/dL 8.4-10.2 qpwr=706) EGFR (BEAKER) (test 19 mL/min/1.73 sq m ESTIMATED GFR IS NOT gfch=7094) ACCURATE CREATININE CLEARANCE IN PREDICTING GLOMERULAR FILTRATION RATE. ESTIMATED GFR IS NOT APPLICABLE FOR DIALYSIS PATIENTS. CBC W/PLT COUNT & AUTO [id number] 05:09:00 Test Item Value Reference Range Comments WHITE BLOOD CELL COUNT (BEAKER) (test ecya=062) 10.1 K/ L 3.5-10.5 RED BLOOD CELL COUNT (BEAKER) (test slni=326) 3.11 M/ L 4.63-6.08 HEMOGLOBIN (BEAKER) (test nhke=207) 9.9 GM/DL 13.7-17.5 HEMATOCRIT (BEAKER) (test yrdu=823) 31.5 % 40.1-51.0 MEAN CORPUSCULAR VOLUME (BEAKER) (test tisa=103) 101.3 fL 79.0-92.2 MEAN CORPUSCULAR HEMOGLOBIN (BEAKER) (test 31.8 pg 25.7-32.2 ijnb=650) MEAN CORPUSCULAR HEMOGLOBIN CONC (BEAKER) (test 31.4 GM/DL 32.3-36.5 dvxy=410) RED CELL DISTRIBUTION WIDTH (BEAKER) (test 13.4 % 11.6-14.4 kxru=374) PLATELET COUNT (BEAKER) (test jzbk=872) 318 K/CU MM 150-450 MEAN PLATELET VOLUME (BEAKER) (test ffoz=886) 9.7 fL 9.4-12.4 NUCLEATED RED BLOOD CELLS (BEAKER) (test 0 /100 WBC 0-0 vqaz=586) NEUTROPHILS RELATIVE PERCENT (BEAKER) (test 71 % nmkz=011) LYMPHOCYTES RELATIVE PERCENT (BEAKER) (test 13 % xbfb=794) MONOCYTES RELATIVE PERCENT (BEAKER) (test 10 % ninw=532) EOSINOPHILS RELATIVE PERCENT (BEAKER) (test 4 % uset=442) BASOPHILS RELATIVE PERCENT (BEAKER) (test 0 % nmae=502) NEUTROPHILS ABSOLUTE COUNT (BEAKER) (test 7.21 K/ L 1.78-5.38 zuix=253) LYMPHOCYTES ABSOLUTE COUNT (BEAKER) (test 1.31 K/ L 1.32-3.57 zwka=625) MONOCYTES ABSOLUTE COUNT (BEAKER) (test 1.02 K/ L 0.30-0.82 tqri=346) EOSINOPHILS ABSOLUTE COUNT (BEAKER) (test 0.45 K/ L 0.04-0.54 dnql=449) BASOPHILS ABSOLUTE COUNT (BEAKER) (test 0.04 K/ L 0.01-0.08 ucwb=436) IMMATURE GRANULOCYTES-RELATIVE PERCENT (BEAKER) 1 % 0-1 (test aflo=3093) BASIC METABOLIC [id number] 10:41:00 Test Item Value Reference Range Comments SODIUM (BEAKER) (test 141 meq/L 136-145 lfoo=635) POTASSIUM (BEAKER) (test 4.2 meq/L 3.5-5.1 igxi=718) CHLORIDE (BEAKER) (test 116 meq/L 98-107 nmsd=497) CO2 (BEAKER) (test 14 meq/L 22-29 cdau=155) BLOOD UREA NITROGEN 46 mg/dL 7-21 (BEAKER) (test zpxn=783) CREATININE (BEAKER) (test 2.77 mg/dL 0.57-1.25 hwxz=254) GLUCOSE RANDOM (BEAKER) 136 mg/dL 70-105 (test zvtl=116) CALCIUM (BEAKER) (test 8.9 mg/dL 8.4-10.2 gpjw=574) EGFR (BEAKER) (test 22 mL/min/1.73 sq m ESTIMATED GFR IS NOT bujr=4180) ACCURATE CREATININE CLEARANCE IN PREDICTING GLOMERULAR FILTRATION RATE. ESTIMATED GFR IS NOT APPLICABLE FOR DIALYSIS PATIENTS. IRON, TIBC, % SAT. (WITHOUT FERRITIN)2018-07-21 07:18:00 Test Item Value Reference Range Comments IRON (BEAKER) (test dkil=923) 83 ug/dL 40-160 TOTAL IRON BINDING CAPACITY (BEAKER) (test 304 ug/dL 250-450 coxc=138) IRON % SATURATION (2) (BEAKER) (test tfgf=9744) 27 % 20-55 [id number] 07:12:00 Test Item Value Reference Range Comments FERRITIN (BEAKER) (test lpbi=254) 250 ng/mL 5-275 CBC W/PLT COUNT & AUTO [id number] 07:02:00 Test Item Value Reference Range Comments WHITE BLOOD CELL COUNT (BEAKER) (test poqk=755) 14.8 K/ L 3.5-10.5 RED BLOOD CELL COUNT (BEAKER) (test jvvv=557) 3.40 M/ L 4.63-6.08 HEMOGLOBIN (BEAKER) (test hzyj=321) 10.7 GM/DL 13.7-17.5 HEMATOCRIT (BEAKER) (test wtuz=778) 34.0 % 40.1-51.0 MEAN CORPUSCULAR VOLUME (BEAKER) (test lgwp=543) 100.0 fL 79.0-92.2 MEAN CORPUSCULAR HEMOGLOBIN (BEAKER) (test 31.5 pg 25.7-32.2 ftpu=788) MEAN CORPUSCULAR HEMOGLOBIN CONC (BEAKER) (test 31.5 GM/DL 32.3-36.5 tiiv=259) RED CELL DISTRIBUTION WIDTH (BEAKER) (test 13.2 % 11.6-14.4 ngnq=731) PLATELET COUNT (BEAKER) (test rkss=155) 363 K/CU MM 150-450 MEAN PLATELET VOLUME (BEAKER) (test qwjl=940) 9.8 fL 9.4-12.4 NUCLEATED RED BLOOD CELLS (BEAKER) (test 0 /100 WBC 0-0 xysh=910) NEUTROPHILS RELATIVE PERCENT (BEAKER) (test 78 % hbem=439) LYMPHOCYTES RELATIVE PERCENT (BEAKER) (test 10 % yirh=967) MONOCYTES RELATIVE PERCENT (BEAKER) (test 10 % faop=791) EOSINOPHILS RELATIVE PERCENT (BEAKER) (test 2 % hqou=741) BASOPHILS RELATIVE PERCENT (BEAKER) (test 0 % xewx=468) NEUTROPHILS ABSOLUTE COUNT (BEAKER) (test 11.47 K/ L 1.78-5.38 awtt=254) LYMPHOCYTES ABSOLUTE COUNT (BEAKER) (test 1.46 K/ L 1.32-3.57 putr=054) MONOCYTES ABSOLUTE COUNT (BEAKER) (test 1.45 K/ L 0.30-0.82 cmtq=415) EOSINOPHILS ABSOLUTE COUNT (BEAKER) (test 0.25 K/ L 0.04-0.54 qxlh=041) BASOPHILS ABSOLUTE COUNT (BEAKER) (test 0.03 K/ L 0.01-0.08 jrum=631) IMMATURE GRANULOCYTES-RELATIVE PERCENT (BEAKER) 1 % 0-1 (test cgjk=8582) PROTHROMBIN TIME/[id number] 06:34:00 Test Item Value Reference Range Comments PROTIME (BEAKER) (test kfdx=461) 14.6 seconds 11.7-14.7 INR (BEAKER) (test izpa=227) 1.1 <=5.9 RECOMMENDED COUMADIN/WARFARIN INR THERAPY RANGESSTANDARD DOSE: 2.0 - 3.0 Includes: PROPHYLAXIS forvenous thrombosis, systemic embolization; TREATMENT for venous thrombosis and/or pulmonary embolus.HIGH RISK: Target INR is 2.5-3.5 for patients with mechanical heart valves.[id number] 06:34:00 Test Item Value Reference Range Comments PARTIAL THROMBOPLASTIN TIME (BEAKER) (test 28.7 seconds 22.5-36.0 zprm=012)
[2018-11-29 13:41] LABS: Absolute Lymphocytes (CBC) 0.4 K/uL (0.7-4.9); Absolute Monocytes 0.6 K/uL (0.1-1.3); Absolute Neutrophil 8.9 K/uL (1.8-8.0); Basophils % 0.7 % (0-1.3); Eosinophils % 0.4 % (0-4.4); Hematocrit 31.4 % (39.6-49.0); Lymphocytes % 3.9 % (15.3-44.8); MPV 7.8 fL (7.6-11.3); Monocytes % 6.3 % (3.3-12.3); RBC Red Blood Cell Count 3.32 M/uL (4.33-5.43)
[2018-11-29 14:00] LABS: Albumin 2.9 g/dL (3.4-5.0); Bilirubin Direct 0.2 mg/dL (0-0.2); Bilirubin Total 0.6 mg/dL (0.2-1.0); Potassium 3.7 mmol/L (3.5-5.1); Protein, Total 7.1 g/dL (6.4-8.2)
[2018-11-29] MEDS ORDERED: CEFTRIAXONE/SWI 1gm 1 GM/10 ML SYR ONE (16:02)
--- NOTE | 2018-11-29 16:31 | RAD REPORT ---
EXAM DESCRIPTION: RAD - Chest Single View - 11/29/2018 4:12 pm CLINICAL HISTORY: Fever, shortness of breath COMPARISON: November 25 TECHNIQUE: AP portable chest image was obtained 1610 hours . FINDINGS: No peripheral mass or consolidation. Interstitial pattern is not substantially different f rom comparison. Heart and vasculature are normal. No measurable pleural effusion and no pneumothorax. No acute bony abnormality seen. No acute aortic findings suspected. IMPRESSION: No focal mass or consolidation. Lung markings are similar to comparison, accentuated somewhat by shallow inspiration.
--- NOTE | 2018-11-29 17:35 | EDPHYS ---
Physician Documentation [facility] Name: Avila Marsh Age: 87 yrs Sex: Male : 1930 Arrival Date: 11/29/2018 Time: 12:41 Bed 23 Private MD: ED Physician Bruce Burt HPI: 11/29 18:23 This 87 yrs old Male presents to ER via EMS with complaints of Cough, kdr Nausea/Vomiting/Diarrhea. 18:23 The patient or guardian reports cough, that is intermittent. Onset: The kdr symptoms/episode began/occurred gradually, 1 week(s) ago. Severity of symptoms: At their worst the symptoms were mild, in the emergency department the symptoms are unchanged. Modifying factors: The symptoms are alleviated by nothing, the symptoms are aggravated by exertion, Coughing. Associated signs and symptoms: Pertinent positives: fever, nausea, Pertinent negatives: chest pain, diarrhea, ear ache, rhinorrhea, sore throat, vomiting. The patient has experienced similar episodes in the past, a few times. The patient has been recently seen by a physician: The patient has been recently seen at the [facility] Emergency Department, this week. The patient states that he had a fever of 103 earlier today and took Tylenol x2 and since his fever has improved. Was seen here about four days ago for similar problem and discharged with Dx of bronchitis. Historical: - Allergies: 12:47 Ciprofloxacin; hb - Home Meds: 12:47 amlodipine 5 mg tab 1 tab once daily [Active]; biotin 2,500 mcg Oral cap daily hb [Active]; Fish Oil Oral daily [Active]; hydralazine 75 mg Oral tab 2 times per day [Active]; Magnesium Oxide Oral 400 mg daily [Active]; Multi-Day Oral daily [Active]; Vitamin C 1,000 mg Oral tab daily [Active]; - PMHx: 12:47 Anemia; Bladder cancer; DVT; Hypertension; kidney problems; hb - PSHx: 12:47 suprapubic cath; shoulder sx; Cholecystectomy; bladder sx; Appendectomy; hb - Immunization history:: Adult Immunizations up to date. - Social history:: Smoking status: Patient/guardian denies using tobacco. - Ebola Screening: : No symptoms or risks identified at this time. ROS: 18:23 Constitutional: Negative for weight loss - has had fever and chills Eyes: Negative for kdr injury, pain, redness, and discharge, ENT: Negative for injury, pain, and discharge, Neck: Negative for injury, pain, and swelling, Cardiovascular: Negative for chest pain, palpitations, and edema, Back: Negative for injury and pain, : Negative for injury, bleeding, discharge, and swelling, MS/Extremity: Negative for injury and deformity, Skin: Negative for injury, rash, and discoloration, Neuro: Negative for headache, weakness, numbness, tingling, and seizure activity. Psych: Negative for depression, anxiety, suicide ideation, homicidal ideation, and hallucinations, Allergy/Immunology: Negative for hives, rash, and allergies, Endocrine: Negative for neck swelling, polydipsia, polyuria, polyphagia, and marked weight changes, Hematologic/Lymphatic: Negative for swollen nodes, abnormal bleeding, and unusual bruising. 18:23 Respiratory: Positive for cough. 18:23 Abdomen/GI: Positive for nausea and vomiting, diarrhea. Exam: 18:30 Constitutional: This is a well developed, well nourished patient who is awake, alert, kdr and in no acute distress. Head/Face: Normocephalic, atraumatic. Eyes: Pupils equal round and reactive to light, extra-ocular motions intact. Lids and lashes normal. Conjunctiva and sclera are non-icteric and not injected. Cornea within normal limits. Periorbital areas with no swelling, redness, or edema. Neck: Trachea midline, no thyromegaly or masses palpated, and no cervical lymphadenopathy. Supple, full range of motion without nuchal rigidity, or vertebral point tenderness. No Meningismus. Chest/axilla: Normal chest wall appearance and motion. Nontender with no deformity. No lesions are appreciated. Cardiovascular: Regular rate and rhythm with a normal S1 and S2. No gallops, murmurs, or rubs. Normal PMI, no JVD. No pulse deficits. Respiratory: Lungs have equal breath sounds bilaterally, clear to auscultation and percussion. No rales, rhonchi or wheezes noted. No increased work of breathing, no retractions or nasal flaring. Abdomen/GI: Soft, non-tender, with normal bowel sounds. No distension or tympany. No guarding or rebound. No evidence of tenderness throughout. Back: No spinal tenderness. No costovertebral tenderness. Full range of motion. Skin: Warm, dry with normal turgor. Normal color with no rashes, no lesions, and no evidence of cellulitis. MS/ Extremity: Pulses equal, no cyanosis. Neurovascular intact. Full, normal range of motion. Neuro: Awake and alert, GCS 15, oriented to person, place, time, and situation. Cranial nerves II-XII grossly intact. Motor strength 5/5 in all extremities. Sensory grossly intact. Cerebellar exam normal. Normal gait. Psych: Awake, alert, with orientation to person, place and time. Behavior, mood, and affect are within normal limits. Vital Signs: 01:30 BP 131 / 66 LA Supine; Pulse 85; Resp 18 S; Pulse Ox 98% on 2 lpm NC; rv 12:45 BP 146 / 77; Pulse 86; Resp 24; Temp 100.7; Pulse Ox 90% on R/A; Pain 2/10; hb 13:59 BP 114 / 57 LA Supine; Pulse 80; Resp 18 S; Pulse Ox 96% on 2 lpm NC; rv 16:03 BP 125 / 71; Pulse 75; Resp 18; Pulse Ox 100% on 2 lpm NC; mg2 17:15 BP 109 / 61; Pulse 78; Resp 18; Pulse Ox 98% on 2 lpm NC; Pain 0/10; mg2 17:30 BP 114 / 56 LA Supine; Pulse 79; Resp 17 S; Pulse Ox 97% on R/A; rv 18:00 BP 138 / 70 LA Supine; Pulse 77; Resp 17 S; Pulse Ox 99% on R/A; rv 18:30 BP 145 / 69 LA Supine; Pulse 80; Resp 18 S; Temp 97.9(O); Pulse Ox 100% on 2 lpm NC; rv MDM: 17:35 Patient medically screened. kdr 18:30 Data reviewed: vital signs, nurses notes, lab test result(s), radiologic studies. kdr Counseling: I had a detailed discussion with the patient and/or guardian regarding: the historical points, exam findings, and any diagnostic results supporting the discharge/admit diagnosis, lab results, radiology results. Physician consultation: James Arambula MD was called at 18:10, regarding admission. 11/29 13:23 Order name: Basic Metabolic Panel; Complete Time: 15:44 kdr 11/29 13:23 Order name: CBC with Diff; Complete Time: 15:44 [facility] 11/29 13:23 Order name: Creatinine for Radiology; Complete Time: 15:44 [facility] 11/29 13:23 Order name: Hepatic Function; Complete Time: 15:44 [facility] 11/29 13:23 Order name: Lipase; Complete Time: 15:44 [facility] 11/29 13:36 Order name: Blood Culture Adult (2) [facility] 11/29 13:23 Order name: IV Saline Lock; Complete Time: 13:24 [facility] 11/29 13:23 Order name: Labs collected and sent; Complete Time: 13:25 [facility] 11/29 13:36 Order name: Procalcitonin; Complete Time: 15:44 [facility] 11/29 13:36 Order name: Lactate; Complete Time: 15:44 [facility] 11/29 15:45 Order name: CXR XRAY; Complete Time: 17:06 [facility] 11/29 17:33 Order name: Flu kdr Administered Medications: 15:54 Drug: Rocephin - (cefTRIAXone) 1 grams Route: IVPB; Infused Over: 30 mins; Site: left mg2 antecubital; 18:35 Follow up: IV Status: Completed infusion rv Disposition: 11/29/18 17:35 Hospitalization ordered by James Arambula for Observation. Preliminary diagnosis is Fever, unspecified. - Bed requested for Telemetry/MedSurg (observation). - Status is Observation. rv - Condition is Fair. - Problem is an ongoing problem. - Symptoms have improved. UTI on Admission? No Signatures: Dispatcher [employer] EDMS Bruce Burt MD MD kdr Ayush Mccormack em1 Michelle Quiles RN RN Esa Andrade RN RN [facility] Barron Jansen RN RN rv Corrections: (The following items were deleted from the chart) 18:11 17:35 Hospitalization Ordered by Manjula Fonseca MD for Observation. Preliminary diagnosis kdr is Fever, unspecified. Bed requested for Telemetry/MedSurg (observation). Status is Observation. Condition is Fair. Problem is an ongoing problem. Symptoms have improved. UTI on Admission? No. kdr 18:24 18:11 11/29/2018 17:35 Hospitalization Ordered by James Arambula MD for Observation. em1 Preliminary diagnosis is Fever, unspecified. Bed requested for Telemetry/MedSurg (observation). Status is Observation. Condition is Fair. Problem is an ongoing problem. Symptoms have improved. UTI on Admission? No. kdr 19:42 18:24 11/29/2018 17:35 Hospitalization Ordered by James Arambula MD for Observation. rv Preliminary diagnosis is Fever, unspecified. Bed requested for Telemetry/MedSurg (observation). Status is Observation. Condition is Fair. Problem is an ongoing problem. Symptoms have improved. UTI on Admission? No. em1
--- NOTE | 2018-11-29 17:35 | ER ---
Nurse's Notes [facility] Name: Avila Marsh Age: 87 yrs Sex: Male : 1930 Arrival Date: 11/29/2018 Time: 12:41 Bed 23 Private MD: Diagnosis: Fever, unspecified Presentation: 11/29 12:42 Presenting complaint: EMS states: Called out for generalized weakness, cough, N/V/D, hb and fever x 3 days. TMAX 103. Transition of care: patient was not received from another setting of care. Onset of symptoms was November 29, 2018. Risk Assessment: Do you want to hurt yourself or someone else? Patient reports no desire to harm self or others. Care prior to arrival: Medication(s) given: Tylenol, 650 mg, x 3 1 hr NON DESTRUCTIVE TESTING ENGINEER IV initiated. 18 GA, in the left antecubital area, NS 800 ml. 12:42 Method Of Arrival: EMS: [facility] hb 12:42 Acuity: ANA 2 hb 13:04 Initial Sepsis Screen: Does the patient meet any 2 criteria? No. Patient's initial rv sepsis screen is negative. Does the patient have a suspected source of infection? No. Patient's initial sepsis screen is negative. Historical: - Allergies: 12:47 Ciprofloxacin; hb - Home Meds: 12:47 amlodipine 5 mg tab 1 tab once daily [Active]; biotin 2,500 mcg Oral cap daily hb [Active]; Fish Oil Oral daily [Active]; hydralazine 75 mg Oral tab 2 times per day [Active]; Magnesium Oxide Oral 400 mg daily [Active]; Multi-Day Oral daily [Active]; Vitamin C 1,000 mg Oral tab daily [Active]; - PMHx: 12:47 Anemia; Bladder cancer; DVT; Hypertension; kidney problems; hb - PSHx: 12:47 suprapubic cath; shoulder sx; Cholecystectomy; bladder sx; Appendectomy; hb - Immunization history:: Adult Immunizations up to date. - Social history:: Smoking status: Patient/guardian denies using tobacco. - Ebola Screening: : No symptoms or risks identified at this time. Screenin:04 Abuse screen: Denies threats or abuse. Denies injuries from another. Nutritional rv screening: No deficits noted. Tuberculosis screening: No symptoms or risk factors identified. Fall Risk None identified. Assessment: 12:53 General: Appears in no apparent distress. comfortable, Behavior is calm, cooperative. rv Pain: Denies pain. Neuro: Level of Consciousness is awake, alert, obeys commands, Oriented to person, place, time, situation. Cardiovascular: Capillary refill < 3 seconds. Respiratory: Airway is patent. GI: Abdomen is round Reports nausea. : No signs and/or symptoms were reported regarding the genitourinary system. EENT: No signs and/or symptoms were reported regarding the EENT system. Derm: Skin is intact. Vital Signs: 01:30 BP 131 / 66 LA Supine; Pulse 85; Resp 18 S; Pulse Ox 98% on 2 lpm NC; rv 12:45 BP 146 / 77; Pulse 86; Resp 24; Temp 100.7; Pulse Ox 90% on R/A; Pain 2/10; hb 13:59 BP 114 / 57 LA Supine; Pulse 80; Resp 18 S; Pulse Ox 96% on 2 lpm NC; rv 16:03 BP 125 / 71; Pulse 75; Resp 18; Pulse Ox 100% on 2 lpm NC; mg2 17:15 BP 109 / 61; Pulse 78; Resp 18; Pulse Ox 98% on 2 lpm NC; Pain 0/10; mg2 17:30 BP 114 / 56 LA Supine; Pulse 79; Resp 17 S; Pulse Ox 97% on R/A; rv 18:00 BP 138 / 70 LA Supine; Pulse 77; Resp 17 S; Pulse Ox 99% on R/A; rv 18:30 BP 145 / 69 LA Supine; Pulse 80; Resp 18 S; Temp 97.9(O); Pulse Ox 100% on 2 lpm NC; rv ED Course: 12:41 Patient arrived in ED. hb 12:43 Triage completed. hb 12:43 Arm band placed on. hb 12:50 Bruce Burt MD is Attending Physician. kdr 12:53 Barron Jansen RN is Primary Nurse. rv 13:05 Patient has correct armband on for positive identification. Placed in gown. Bed in low rv position. Call light in reach. Side rails up X2. Adult w/ patient. Pulse ox on. NIBP on. 13:05 Maintain EMS IV. Dressing intact. Good blood return noted. Site clean \T\ dry. Gauge \T\ rv site: G18 LEFT AC. 13:45 First set of blood cultures drawn by me. lt1 14:08 Second set of blood cultures drawn. lt1 16:11 CXR XRAY In Process Unspecified. EDMS 17:33 Manjula Fonseca MD is Hospitalizing Provider. kdr 18:11 Hospitalizing Provider role handed off by Manjula Fonseca MD kdr 18:11 James Aarmbula MD is Hospitalizing Provider. kdr 19:41 No provider procedures requiring assistance completed. Patient admitted, IV remains in rv place. Administered Medications: 15:54 Drug: Rocephin - (cefTRIAXone) 1 grams Route: IVPB; Infused Over: 30 mins; Site: left mg2 antecubital; 18:35 Follow up: IV Status: Completed infusion rv Outcome: 17:35 Decision to Hospitalize by Provider. kdr 19:41 Admitted to Med/surg accompanied by nurse, via wheelchair, room 224, with chart, Report rv called to DONTE DONG 19:41 Condition: stable 19:41 Instructed on the need for admit. 19:42 Patient left the ED. rv Signatures: Dispatcher [employer] EDMS Bruce Burt MD MD kdr Michelle Quiles RN RN hb Esa Andrade RN RN mg2 Barron Jansen, RN RN rv Germaine Peraza lt1 Corrections: (The following items were deleted from the chart) 12:45 12:42 Acuity: ANA 3 hb hb 16:04 16:03 BP 125 / 71; Pulse 75bpm; Resp 18bpm; Pulse Ox 100% RA; mg2 mg2
[2018-11-29] MEDS ORDERED: AZITHROMYCIN IV 500 MG in NA CHLORIDE 0.9% 250 ML IVPB ONE (19:50)
[2018-11-29] MEDS ORDERED: ONDANSETRON 4 MG/2 ML VIAL IV PRN (19:50)
[2018-11-29] MEDS ORDERED: ALBUTEROL 2.5 MG/3 ML NEB SOL NEB PRN (19:50)
[2018-11-29] MEDS ORDERED: HYDRALAZINE HCL 20 MG/ML VIAL IV PRN (20:47)
[2018-11-29] MEDS ORDERED: AZITHROMYCIN 500 MG INJ IVPB ONE (20:59)
[2018-11-29] MEDS: NA CHLORIDE 0.9% 1,000 ML IV SCH (21:03)
[2018-11-29 21:06] VITALS: BMI 26.3
[2018-11-29] MEDS ORDERED: NA CHLORIDE 0.9% 250 ML ONE (21:17)
[2018-11-29] MEDS: ACETAMINOPHEN 500 MG TAB PO PRN (21:39)
[2018-11-30 00:45] LABS: Urine Appearance TURBID; Urine Bilirubin NEGATIVE (NEG); Urine Blood TRACE (NEG); Urine Color YELLOW; Urine Glucose NEGATIVE (NEG); Urine Protein 2+ (NEG); Urine Specific Gravity 1.015 (1.005-1.030); Urine Urobilinogen 0.2 mg/dL (0.2-1.0)
[2018-11-30 00:51] LABS: Urine Microscopic Reflex ORDER UMIC
[2018-11-30 02:08] LABS: Urine Bacteria <20 /HPF (NONE SEEN); Urine Culture Reflex Order REFLEXED; Urine RBC <5 /HPF (NONE SEEN)
[2018-11-30 05:36] LABS: Absolute Lymphocytes (CBC) 1.2 K/uL (0.7-4.9); Absolute Neutrophil 6.4 K/uL (1.8-8.0); Basophils % 0.6 % (0-1.3); Eosinophils % 2.2 % (0-4.4); Hematocrit 32.6 % (39.6-49.0); MPV 8.1 fL (7.6-11.3); Monocytes % 11.3 % (3.3-12.3); RBC Red Blood Cell Count 3.44 M/uL (4.33-5.43)
[2018-11-30 05:45] LABS: Albumin 2.9 g/dL (3.4-5.0); Bilirubin Total 0.4 mg/dL (0.2-1.0); Potassium 3.7 mmol/L (3.5-5.1)
[2018-11-30] MEDS ORDERED: CEFTRIAXONE 1 GM/NS 50 ML 1 GM/50 ML BAG IV SCH (09:00)
[2018-11-30] MEDS: MAGNESIUM OXIDE 400 MG TAB PO SCH (09:02)
[2018-11-30] MEDS: HYDRALAZINE HCL 25 MG TABLET PO SCH ×2 (09:02→21:02)
[2018-11-30] MEDS: AMLODIPINE 5 MG TAB PO SCH (09:02)
--- NOTE | 2018-11-30 11:00 | P.HP ---
Certification for Inpatient Patient admitted to: Inpatient With expected LOS: >2 Midnights Practitioner: I am a practitioner with admitting privileges, knowledge of patient current condition, hospital course, and medical plan of care. 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 HE COMES WITH ONE DAY OF FEVER, COUGH, NAUSEA, VOMITING AND ONE EPISODE OF DIARRHEA. HE IS A LOT BETTER ON ABX NOW. TODAY WE FIND HE HAS POSITIVE BLOOD CULTURES WITH GRAM NEGATIVE BACILLI. Allergies ciprofloxacin Allergy (Intermediate, Verified 11/29/18 20:10) Rash Home Medications: Ascorbic Acid/Ascorbate Sodium [Vit C-Lachelle Hips 500 mg Chew Tb] 1,000 mg PO DAILY 03/24/17 Magnesium Oxide [Mag 0X*] 400 mg PO DAILY 03/24/17 Multivitamin [Multivitamins] 1 each PO DAILY 03/24/17 [place]-3S/Dha/Epa/Fish Oil/D3 [Fish Ies-Lqcbk-5-Vit D Softgel] 1 cap PO DAILY 07/29 Hydralazine [Apresoline*] 75 mg PO BID #180 tab 06/02/17 Amlodipine [Norvasc*] 1 tab PO DAILY 11/29/18 Azithromycin 1 tab PO DAILY 11/29/18 Biotin [Nail-Ex] 1 tab PO DAILY 11/29/18 Methylprednisolone [Medrol dosepack] 4 mg PO DAILY 11/29/18 - Past Medical/Surgical History Has patient received pneumonia vaccine in the past: Yes Diabetic: No -: Hypertension -: History of bladder cancer, suprapubic catheter placement -: Hyperlipidemia -: History of recurrent UTI -: Appendectomy -: Shoulder surgery -: Undescended testicle repair -: Cholecystectomy -: Bladder surgery with reconstruction Psychosocial/ Personal History: The patient is of 64 years. He has 2 children. - Family History Mother -: Cancer Notes: breast cancer - Social History Smoking Status: Former smoker Alcohol use: Yes CD- Drugs: No Caffeine use: Yes Place of Residence: Home Review of Systems 10-point ROS is otherwise unremarkable General: Weakness, Malaise Physical Examination - Vital Signs Temperature: 98.4 F Blood Pressure: 130/60 Pulse: 81 Respirations: 18 Pulse Ox (%): 93 - Physical Exam General: Alert, Mild distress HEENT: Atraumatic, PERRLA, Mucous membr. moist/pink, EOMI, Sclerae nonicteric Neck: Supple, 2+ carotid pulse no bruit, No LAD, Without JVD or thyroid abnormality Respiratory: Clear to auscultation bilaterally, Normal air movement Cardiovascular: Regular rate/rhythm, Normal S1 S2 Gastrointestinal: Normal bowel sounds, No tenderness Musculoskeletal: No tenderness Integumentary: No rashes Neurological: Normal gait, Normal speech, Normal strength at 5/5 x4 extr, Normal tone, Normal affect Lymphatics: No axilla or inguinal lymphadenopathy - Studies Laboratory Data (last 24 hrs) 11/29/18 13:30: Creatinine 1.38 H 11/29/18 13:30: WBC 10.0, Hgb 10.7 L, Hct 31.4 L, Plt Count 239 11/29/18 13:30: Sodium 139, Potassium 3.7, BUN 20 H, Creatinine 1.41 H, Glucose 115 H, Total Bilirubin 0.6, AST 33, ALT 33, Alkaline Phosphatase 64, Lipase 88 Microbiology Data (last 24 hrs): 11/29/18 17:41 Nasopharnyx Influenza Type A Antigen Screen - Final 11/29/18 17:41 Nasopharnyx Influenza Type B Antigen Screen - Final Assessment and Plan - Problems (Diagnosis) (1) Gram-neg septicemia Current Visit: Yes Status: Acute Plan: MOST LIKELY SOURCE CAN BE BRONCHIECTASIS. HE HAS BEEN TO PULMONARY MD FOR MANY YEARS BUT NO SUCCESS ON CHRONIC COUGH. LAST WEEK I PULLED HIS CT SCAN FROM 2018 AND SHOWED TO HIM THAT BRONCHIECTASIS CAN GIVE RISE TO CHRONIC COUGH AND RECURRENT INFECTION. THIS INFECTION CAN BE FROM IT. HE HAS NO UTI SS. HE HAS HAD BLADDER CANCER. I WILL FOLLOW URINE CULTURE. ORDER SONOGRAM OF ABDOMEN. CT CHEST WITH CONTRAST WHEN CREATININE COMES DOWN SOME. IV ROCEPHIN IS A GOOD CHOICE FOR NOW. HE MAY OR MAY NOT NEED PICC LINE BUT AGAIN HE IS ALLERGIC TO CIPRO THAT TAKES AWAY ONE IMPORTANT GROUP OF ORAL ANTIBIOTIC THAT MAY WORK IN BRONCHIECTASIS OR URINE RELATED INFECTIONS. - Advance Directives Does patient have a Living Will: Yes Does patient have a Durable POA for Healthcare: Yes
[2018-11-30 11:40] LABS: MPV 8.6 fL (7.6-11.3)
[2018-11-30 11:53] LABS: Platelet Estimate ADEQ
[2018-11-30] MEDS: ENOXAPARIN 40 MG/0.4 ML SQ SCH (13:05)
[2018-11-30] MEDS: NA CHLORIDE 0.9% 1,000 ML IV SCH ×2 (13:23→22:30)
[2018-11-30] MEDS: CEFTRIAXONE/SWI 1gm 1 GM/10 ML SYR IV SCH (16:27)
--- NOTE | 2018-11-30 18:06 | RAD REPORT ---
EXAM DESCRIPTION: RAD - Chest Single View - 11/30/2018 5:06 pm CLINICAL HISTORY: PICC line placement COMPARISON: November 29 FINDINGS: Portable chest was obtained following placement of a right upper extremity PICC line. The catheter tip is in the distal SVC.
--- NOTE | 2018-11-30 18:08 | RAD REPORT ---
EXAM DESCRIPTION: US - Abdomen Exam Complete - 11/30/2018 6:00 pm CLINICAL HISTORY: Fever, sepsis COMPARISON: CT July 2018 FINDINGS: Gallbladder is absent. No mass or abnormal fluid in the gallbladder fossa. Common bile arnulfo t is normal with no common duct stone identified. The liver and spleen show no suspicious findings. T he pancreas is normal. No hydronephrosis or suspicious mass in either kidney. Benign-appearing bilateral renal cysts seen. Aorta and IVC show no suspicious findings. No ascites or bulky lymphadenopathy. IMPRESSION: Post cholecystectomy abdomen ultrasound showing no significant finding.
[2018-11-30] MEDS: ACETAMINOPHEN 500 MG TAB PO PRN (18:23)
[2018-12-01 05:05] LABS: Absolute Lymphocytes (CBC) 1.3 K/uL (0.7-4.9); Absolute Monocytes 1.4 K/uL (0.1-1.3); Absolute Neutrophil 6.4 K/uL (1.8-8.0); Basophils % 0.6 % (0-1.3); Eosinophils % 3.7 % (0-4.4); Hematocrit 32.8 % (39.6-49.0); Lymphocytes % 14.1 % (15.3-44.8); MPV 8.1 fL (7.6-11.3); Monocytes % 14.3 % (3.3-12.3); RBC Red Blood Cell Count 3.51 M/uL (4.33-5.43)
[2018-12-01 05:23] LABS: Bilirubin Total 0.4 mg/dL (0.2-1.0); Potassium 3.6 mmol/L (3.5-5.1); Protein, Total 7.3 g/dL (6.4-8.2)
[2018-12-01 08:20] LABS: Blood Morphology Comment NOT SEEN (NOT SEEN); Platelet Estimate ADEQ; Urine White Blood Cell Casts OK
[2018-12-01] MEDS: HYDRALAZINE HCL 25 MG TABLET PO SCH ×2 (08:56→20:37)
[2018-12-01] MEDS: ENOXAPARIN 40 MG/0.4 ML SQ SCH (08:56)
[2018-12-01] MEDS: MAGNESIUM OXIDE 400 MG TAB PO SCH (08:57)
[2018-12-01] MEDS: AMLODIPINE 5 MG TAB PO SCH (08:57)
[2018-12-01] MEDS: NA CHLORIDE 0.9% 1,000 ML IV SCH ×2 (11:50→15:14)
[2018-12-01] MEDS ORDERED: ALBUTEROL 2.5 MG/3 ML NEB SOL NEB PRN (13:00)
--- NOTE | 2018-12-01 14:41 | P.PN ---
Subjective Date of Service: 12/01/18 Chief Complaint: FEELS A LOT BETTER. Subjective: Improving COUGH IS DRY NOW. HE HAD WET COUGH BEFORE. Review of Systems 10-point ROS is otherwise unremarkable Respiratory: Cough Physical Examination - Vital Signs Temperature: 98.3 F Blood Pressure: 137/65 Pulse: 81 Respirations: 18 Pulse Ox (%): 94 - Physical Exam General: Alert, In no apparent distress HEENT: Atraumatic, PERRLA, EOMI Neck: Supple, JVD not distended Respiratory: Clear to auscultation bilaterally, Normal air movement Cardiovascular: Regular rate/rhythm, Normal S1 S2 Gastrointestinal: Normal bowel sounds, No tenderness Musculoskeletal: No tenderness Integumentary: No rashes Neurological: Normal speech, Normal tone, Normal affect Lymphatics: No axilla or inguinal lymphadenopathy - Studies Medications List Reviewed: Yes Assessment And Plan - Current Problems (Diagnosis) (1) Gram-neg septicemia Current Visit: Yes Status: Acute Plan: MOST LIKELY SOURCE CAN BE BRONCHIECTASIS. HE HAS BEEN TO PULMONARY MD FOR MANY YEARS BUT NO SUCCESS ON CHRONIC COUGH. LAST WEEK I PULLED HIS CT SCAN FROM 2018 AND SHOWED TO HIM THAT BRONCHIECTASIS CAN GIVE RISE TO CHRONIC COUGH AND RECURRENT INFECTION. THIS INFECTION CAN BE FROM IT. HE HAS NO UTI SS. HE HAS HAD BLADDER CANCER. I WILL FOLLOW URINE CULTURE. ORDER SONOGRAM OF ABDOMEN. CT CHEST WITH CONTRAST WHEN CREATININE COMES DOWN SOME. IV ROCEPHIN IS A GOOD CHOICE FOR NOW. HE MAY OR MAY NOT NEED PICC LINE BUT AGAIN HE IS ALLERGIC TO CIPRO THAT TAKES AWAY ONE IMPORTANT GROUP OF ORAL ANTIBIOTIC THAT MAY WORK IN BRONCHIECTASIS OR URINE RELATED INFECTIONS. SONOGRAM OF ABDOMEN IS NEGATIVE. CT CHEST PENDING. I AM CHECKING FOR SOURCE OF BACTEMIA. HIS SYMPTOMS RELATED TO RESPIRATORY SOURCE. HE HAS NO UTI SYMPTOMS
--- NOTE | 2018-12-01 16:27 | RAD REPORT ---
EXAM DESCRIPTION: CT - Thorax W/ Con - 12/01/2018 4:04 pm CLINICAL HISTORY: cough COMPARISON: None TECHNIQUE: Computed axial tomography of the chest was obtained. 100 cc Isovue 300 was administered i ntravenously. All CT scans are performed using dose optimization technique as appropriate and may include automated exposure control or mA/KV adjustment according to patient size. FINDINGS: A 24 x 17 millimeter right hilar lymph node is present. 11 millimeter subcarinal mediastinal lymph no de is seen. Additional sub centimeter hilar and mediastinal lymph nodes are present Mild chronic appearing interstitial lung opacities. A pleural effusion is not present. A pericardial effusion is not seen. Fatty liver IMPRESSION: 24 x 17 millimeter right hilar lymph node it may be reactive in nature or indicate neopl asm such as lymphoma or metastatic disease. Mild mediastinal lymphadenopathy. Nuclear medicine PET-CT scan would be helpful for further evaluation
[2018-12-01] MEDS: CEFTRIAXONE/SWI 1gm 1 GM/10 ML SYR IV SCH (16:37)
[2018-12-02] MEDS: NA CHLORIDE 0.9% 1,000 ML IV SCH ×2 (04:13→14:30)
[2018-12-02 05:29] LABS: Absolute Lymphocytes (CBC) 1.4 K/uL (0.7-4.9); Absolute Neutrophil 4.4 K/uL (1.8-8.0); Basophils % 0.7 % (0-1.3); Eosinophils % 5.6 % (0-4.4); Hematocrit 29.6 % (39.6-49.0); Lymphocytes % 19.5 % (15.3-44.8); MPV 7.9 fL (7.6-11.3); Monocytes % 13.4 % (3.3-12.3); RBC Red Blood Cell Count 3.15 M/uL (4.33-5.43)
[2018-12-02 05:44] LABS: Potassium 3.6 mmol/L (3.5-5.1)
[2018-12-02] MEDS: HYDRALAZINE HCL 25 MG TABLET PO SCH (08:50)
[2018-12-02] MEDS: AMLODIPINE 5 MG TAB PO SCH (08:50)
[2018-12-02] MEDS: ENOXAPARIN 40 MG/0.4 ML SQ SCH (08:51)
[2018-12-02] MEDS: MAGNESIUM OXIDE 400 MG TAB PO SCH (08:51)
[2018-12-02] MEDS ORDERED: CEFEPIME/SWI 2gm 2 GM/20 ML SYR IV SCH (09:00)
[2018-12-02] MEDS ORDERED: POTASSIUM CL SA 10 MEQ TAB PO ONE (09:00)
[2018-12-02] MEDS ORDERED: CEFEPIME 2 GM in NA CHLORIDE 0.9% 100 ML IV SCH (09:00)
[2018-12-02 15:02] VITALS: O2SAT 95
[2018-12-02 17:21] VITALS: BP 162/74; TEMP 98.3
--- NOTE | 2018-12-02 21:29 | P.DS ---
Admission Date: 11/30/18 Discharge Date: 12/02/18 Disposition: ROUTINE DISCHARGE Discharge Condition: GOOD Reason for Admission: FEELS A LOT BETTER. 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 HE COMES WITH ONE DAY OF FEVER, COUGH, NAUSEA, VOMITING AND ONE EPISODE OF DIARRHEA. HE IS A LOT BETTER ON ABX NOW. TODAY WE FIND HE HAS POSITIVE BLOOD CULTURES WITH GRAM NEGATIVE BACILLI. MR DAHL IS DOING GREAT. I HAD TO CHANGE ABX TO CEFEPIME TO COVER BOTH KLEBSIELA IN THE BLOOD AND PSEIDOMONAS IN URINE. HE IS STABLE FOR DC AND WILL SEE ME IN ONE WEEK. Vital Signs/Physical Exam: Temp Pulse Resp BP Pulse Ox 98.3 F 76 20 162/74 H 95 12/02/18 16:00 12/02/18 16:00 12/02/18 16:00 12/02/18 16:00 12/02/18 16:00 Laboratory Data at Discharge: WBC 7.2 K/uL (4.3-10.9) D 12/02/18 05:19 Hgb 10.0 g/dL (13.6-17.9) L 12/02/18 05:19 Hct 29.6 % (39.6-49.0) L 12/02/18 05:19 Plt Count 223 K/uL (152-406) 12/02/18 05:19 Sodium 143 mmol/L (136-145) 12/02/18 05:19 Potassium 3.6 mmol/L (3.5-5.1) 12/02/18 05:19 BUN 15 mg/dL (7-18) 12/02/18 05:19 Creatinine 1.12 mg/dL (0.55-1.3) 12/02/18 05:19 Glucose 94 mg/dL (74-106) 12/02/18 05:19 Total Bilirubin 0.4 mg/dL (0.2-1.0) 12/01/18 04:50 AST 30 U/L (15-37) 12/01/18 04:50 ALT 37 U/L (12-78) 12/01/18 04:50 Alkaline Phosphatase 67 U/L (45-117) 12/01/18 04:50 Lipase 88 U/L (73-393) 11/29/18 13:30 Home Medications: Ascorbic Acid/Ascorbate Sodium [Vit C-Lachelle Hips 500 mg Chew Tb] 1,000 mg PO DAILY 03/24/17 Magnesium Oxide [Mag 0X*] 400 mg PO DAILY 03/24/17 Multivitamin [Multivitamins] 1 each PO DAILY 03/24/17 [place]-3S/Dha/Epa/Fish Oil/D3 [Fish Orf-Dyogj-9-Vit D Softgel] 1 cap PO DAILY 07/29 Hydralazine [Apresoline*] 75 mg PO BID #180 tab 06/02/17 Amlodipine [Norvasc*] 1 tab PO DAILY 11/29/18 Azithromycin 1 tab PO DAILY 11/29/18 Biotin [Nail-Ex] 1 tab PO DAILY 11/29/18 Methylprednisolone [Medrol dosepack] 4 mg PO DAILY 11/29/18 Followup: James Arambula MD [ACTIVE - CAN ADMIT] -
--- NOTE | 2018-12-03 09:54 | ECHO ---
HEIGHT: 5 ft 7 in WEIGHT: 168 lb 0 oz DATE OF STUDY: 12/02/[address]: James Arambula MD 2-DIMENSIONAL: YES M.MODE: YES DOPPLER: YES COLOR FLOW: YES TDS: NO PORTABLE: NO DEFINITY: NO BUBBLE STUDY: NO DIAGNOSIS: KLEBSIELLA SEPTICEMIA CARDIAC HISTORY: CATHERIZATION: NO SURGERY: NO PROSTHETIC VALVE: NO PACEMAKER: NO MEASUREMENTS (cm) DIASTOLIC (NORMALS) SYSTOLIC (NORMALS) IVSd 1.0 (0.6-1.2) LA Diam 3.4 (1.9-4.0) LVEF 59% LVIDd 4.4 (3.5-5.7) LVIDs 3.0 (2.0-3.5) %FS 31% LVPWd 1.2 (0.6-1.2) Ao Diam 3.3 (2.0-3.7) 2 DIMENSIONAL ASSESSMENT: RIGHT ATRIUM: NORMAL LEFT ATRIUM: NORMAL RIGHT VENTRICLE: NORMAL LEFT VENTRICLE: NORMAL TRICUSPID VALVE: NORMAL MITRAL VALVE: NORMAL PULMONIC VALVE: NORMAL AORTIC VALVE: NORMAL PERICARDIAL EFFUSION: NONE AORTIC ROOT: NORMAL LEFT VENTRICULAR WALL MOTION: NORMAL. DOPPLER/COLOR FLOW: NORMAL. COMMENTS: NORMAL 2D ECHO WITH DOPPLER. NO WALL MOTION ABNORMALITY. NO EFFUSION. NO VEGETATION. TECHNOLOGIST: SOLANGE CONNOR
== END 2018-12-02 18:10 | disposition home health service (06) | DRG 872 ==
LOC: ER 12:35 → ERHOLD 17:48 → 2ND 19:47 → OBSVTOIN 11-30 10:51
PROVIDERS: ADMIT Internal Medicine; ATTEND Internal Medicine
PROC: 02HV33Z Insertion of Infusion Device into Superior Vena Cava, Percutaneous Approach (ICD-10-PCS; principal; 2018-11-30)
DX: A41.59 Other Gram-negative sepsis (principal); A41.52 Sepsis due to Pseudomonas; J47.9 Bronchiectasis, uncomplicated; I10 Essential (primary) hypertension; E78.5 Hyperlipidemia, unspecified; Z87.891 Personal history of nicotine dependence; Z88.1 Allergy status to other antibiotic agents
CPT/HCPCS: 36415; 71045; 71260; 76700; 80048; 80053; 80076; 81003; 81015; 83605; 83690; 84145; 85025; 85049; 87040; 87077; 87086; 87088; 87186; 87205; 87804; 93306; 94760; 96365; 96366; 99285; G0378; J0360; J0456; J0692; J0696; J1650; J2405; J7030; Q9967

== ENCOUNTER 2018-12-31 12:19 | Observation (INO) | payer OTHER ==
--- OUTSIDE RECORDS SUMMARY | 2018-12-31 14:33 | XMS REPORT | Clinical Summary ---
:1930 Author Organization [facility] Address [address] [place] [address] Care Team Providers Name Role Phone Reg [...] INFLUENZA VACCINE 03/13/2019 Results Not on fileafter 12/30/2017 Advance Directives Patient has advance care planning documents on file. For more information, please contact:[facility] [place] [address]
--- OUTSIDE RECORDS SUMMARY | 2018-12-31 14:33 | XMS REPORT | Clinical Summary ---
:1930 Author Organization [facility] Address [address] [place] [address] Care Team Providers Name Role Phone Unknownmeds, [...] Type Specialty Care Team Description 07/21/2018 - [facility] Internal Changela, Other hydronephrosis ( Primary Dx); 07/24/2018 Encounter Medicine Milly Patiño MD Suprapubic catheter ([facility]); Fortino, Urinary tract infection associated with catheterization of urinary tract, unspecified indwelling urinary catheter type, initial encounter ( [facility]); MD Alber CKD stage 4 secondary to hypertension ([facility]); Betty Gudino Other vitamin B12 deficiency anemia; MD Marianne Bacteremia due to Escherichia coli after 12/30/2017 Social History Tobacco Use Types Packs/Day Years [...] Taken Blood Pressure 116/57 07/24/2018 2:49 PM [employer] Pulse 87 07/24/2018 2:49 PM [employer] Temperature 36.8 C (98.3 F) 07/24/2018 2:49 PM [employer] Respiratory Rate 18 07/24/2018 2:49 PM [employer] Oxygen Saturation 97% 07/24/2018 2:49 PM [employer] Inhaled Oxygen Concentration - - Weight 78.1 kg (172 lb 2.9 oz) 07/21/2018 3:52 AM [employer] Height 167.6 cm (5' 6") 07/21/2018 3:52 AM [employer] Body Mass Index 27.79 07/21/2018 3:52 AM [employer] Plan of Treatment Not on file Procedures Procedure Name Priority Date/Time Associated Comments Diagnosis [place] CYSTOGRAM STATIC Routine 07/24/2018 1:15 Results for this PM [employer] procedure are in the results section. CBC W/PLT COUNT & Routine 07/24/2018 5:17 Results for this AUTO DIFFERENTIAL AM [employer] procedure are in the results section. BASIC METABOLIC PANEL Routine 07/24/2018 5:17 Results for this (7) AM [employer] procedure are in the results section. CBC W/PLT COUNT & Routine 07/24/2018 5:17 Results for this AUTO DIFFERENTIAL AM [employer] procedure are in the results section. XR CHEST 1 VIEW Routine 07/23/2018 6:23 Results for this PORTABLE/BEDSIDE PM [employer] procedure are in the results section. URINALYSIS W/ REFLEX Routine 07/23/2018 8:58 Results for this URINE CULTURE AM [employer] procedure are in the results section. URINE CULTURE Routine 07/23/2018 8:58 Results for this AM [employer] procedure are in the results section. URINE CULTURE Routine 07/23/2018 8:58 Results for this AM [employer] procedure are in the results section. US RENAL COMPLETE Routine 07/23/2018 8:14 Results for this AM [employer] procedure are in the results section. CBC W/PLT COUNT & Routine 07/23/2018 6:34 Results for this AUTO DIFFERENTIAL AM [employer] procedure are in the results section. BASIC METABOLIC PANEL Routine 07/23/2018 6:34 Results for this (7) AM [employer] procedure are in the results section. CBC W/PLT COUNT & Routine 07/23/2018 6:34 Results for this AUTO DIFFERENTIAL AM [employer] procedure are in the results section. BLOOD CULTURE Routine 07/22/2018 10:03 Results for this AM [employer] procedure are in the results section. BLOOD CULTURE Routine 07/22/2018 9:59 Results for this AM [employer] procedure are in the results section. CBC W/PLT COUNT & Routine 07/22/2018 4:26 Results for this AUTO DIFFERENTIAL AM [employer] procedure are in the results section. BASIC METABOLIC PANEL Routine 07/22/2018 4:26 Results for this (7) AM [employer] procedure are in the results section. CBC W/PLT COUNT & Routine 07/22/2018 4:26 Results for this AUTO DIFFERENTIAL AM [employer] procedure are in the results section. VITAMIN B12 AND Routine 07/22/2018 4:26 Results for this FOLATE AM [employer] procedure are in the results section. URINE CULTURE STAT 07/21/2018 9:55 Results for this AM [employer] procedure are in the results section. BASIC METABOLIC PANEL Routine 07/21/2018 9:45 Results for this (7) AM [employer] procedure are in the results section. CBC W/PLT COUNT & Routine 07/21/2018 6:12 Results for this AUTO DIFFERENTIAL AM [employer] procedure are in the results section. APTT Routine 07/21/2018 6:12 Results for this AM [employer] procedure are in the results section. PROTHROMBIN TIME/INR STAT 07/21/2018 6:12 Results for this AM [employer] procedure are in the results section. FERRITIN Routine 07/21/2018 6:12 Results for this AM [employer] procedure are in the results section. IRON, TIBC, % SAT. Routine 07/21/2018 6:12 Results for this (WITHOUT FERRITIN) AM [employer] procedure are in the results section. CBC W/PLT COUNT & Routine 07/21/2018 6:12 Results for this AUTO DIFFERENTIAL AM [employer] procedure are in the results section. after 12/30/2017 Results FL cystogram static (07/24/2018 1:15 PM [employer]ER [employer]ILLER) Specimen Narrative Performed At FINAL REPORT [facility] Static cystogram: Reason for exam: Reflux, KATHY [...] MD Report Verified Date/Time:07/24/2018 13:39:30 Reading Location: [facility] C0X Ortho Consult Reading Room Procedure Note Interface, External Ris In - 07/24/2018 5:38 PM [employer]ER FINAL REPORT Static cystogram: Reason for exam: [...] Report Verified Date/Time: 07/24/2018 13:39:30 Reading Location: [facility] B1 [id number] Ortho Consult Reading Room Performing Organization Address City/State/Zipcode Phone Number GE RIS CBC with platelet count + automated diff (07/24/2018 5:17 AM PR[employer]ED CONTAINER [employer]ER)Only the most recent of4 resultswithin the time period is included. WBC 9.6 3.5 - 10.5 K/L [facility] RBC 3.63 (L) 4.63 - 6.08 M/L [facility] Hemoglobin 11.5 (L) 13.7 - 17.5 GM/DL [facility] Hematocrit 36.1 (L) 40.1 - 51.0 % [facility] MCV 99.4 (H) 79.0 - 92.2 fL [facility] MCH 31.7 25.7 - 32.2 pg [facility] MCHC 31.9 (L) 32.3 - 36.5 GM/DL [facility] RDW 13.1 11.6 - 14.4 % [facility] Platelets 362 150 - 450 K/CU MM [facility] MPV 9.6 9.4 - 12.4 fL [facility] nRBC 0 0 - 0 /100 WBC [facility] % Neutros 61 % [facility] % Lymphs 20 % [facility] % Monos 13 % [facility] % Eos 6 % [facility] % Baso 0 % [facility] # Neutros 5.82 (H) 1.78 - 5.38 K/L [facility] # Lymphs 1.88 1.32 - 3.57 K/L [facility] # Monos 1.21 (H) 0.30 - 0.82 K/L [facility] # Eos 0.58 (H) 0.04 - 0.54 K/L [facility] # Baso 0.04 0.01 - 0.08 K/L [facility] Immature Granulocytes-Relative 1 0 - 1 % [facility] Specimen Blood Performing Organization Address City/State/Zipcode Phone Number [facility] [address] [place] [address] [phone] CENTER Basic Metabolic Panel (07/24/2018 5:17 AM PRESSURISED CONTAINER FILLER)Only the most recent of4 resultswithin the time period is included. Sodium 138 136 - 145 meq/L [facility] Potassium 4.4 3.5 - 5.1 meq/L [facility] Chloride 110 (H) 98 - 107 meq/L [facility] CO2 15 (L) 22 - 29 meq/L [facility] BUN 35 (H) 7 - 21 mg/dL [facility] Creatinine 2.07 (H) 0.57 - 1.25 mg/dL [facility] Glucose 90 70 - 105 mg/dL [facility] Calcium 9.5 8.4 - 10.2 mg/dL [facility] EGFR 31Comment: ESTIMATED GFR IS mL/min/1.73 sq m [facility] NOT ACCURATE [facility] CLEARANCE IN PREDICTING GLOMERULAR FILTRATION RATE. ESTIMATED GFR IS NOT APPLICABLE FOR DIALYSIS PATIENTS. Specimen Blood Performing Organization Address City/State/Zipcode Phone Number [facility] [address] [place] [address] [phone] CENTER XR chest 1 view portable / bedside (07/23/2018 6:23 PM PRESS[employer]ISED CONTAINER FILLER) Specimen Narrative Performed At FINAL REPORT RIS [...] MD Report Verified Date/Time:07/23/2018 18:46:30 Reading Location: [facility] Radiology Reading Room Procedure Note Interface, External Ris In - 07/23/2018 6:48 PM [employer]ER [employer]ER FINAL REPORT Chest one view AP 07/23/2018 6:46 PM CLINICAL INDICATION: eval for PNA COMPARISON: None available IMPRESSION: Subsegmental opacity in the right lung base may reflect atelectasis or pneumonia. There is linear atelectasis in the left lung base. Cardiomediastinal contours are within normal limits. The central pulmonary vasculature is not engorged. Signed: Robe Bartlett MD Report Verified Date/Time: 07/23/2018 18:46:30 Reading Location: [facility] Reading Room Performing Organization Address City/State/Zipcode Phone Number RIS Urinalysis w/Microscopic + Reflex to Culture (07/23/2018 8:58 AM [employer]ESS[employer]ISED CONTAINER FILLER) Color, UA Yellow [facility] Clarity, UA Hazy [facility] Specific [place], UA 1.010 1.001 - 1.035 [facility] pH, UA 5.5 5.0 - 8.0 [facility] Protein, UA 30 mg/dL (A) Negative [facility] Glucose, UA Negative Negative [facility] Ketones, UA Negative Negative [facility] Bilirubin, UA Negative Negative [facility] Blood, UA Trace (A) Negative [facility] Nitrite, UA Negative Negative [facility] Leukocytes, UA Large (A) Negative [facility] Urobilinogen, UA 0.2 0.2 - 1.0 mg/dL [facility] RBC, UA 6 /HPF [facility] WBC, UA 164 /HPF [facility] Bacteria, UA Rare [facility] Casts 1 /LPF [facility] Specimen Source [facility] Specimen Urine Performing Organization Address City/State/Zipcode Phone Number [facility] [address] [place] [address] [place] Urine culture (07/23/2018 8:58 AM PRESSURISED CONTAINER FILLER)Only the most recent of3 resultswithin the time period is included. Result No growth [facility] Specimen Urine Performing Organization Address City/State/Zipcode Phone Number [facility] [address] [place] [phone] [place] US renal complete (07/23/2018 8:14 AM PRESS[employer]ED CONTAINER FILLER) Specimen Narrative Performed At FINAL REPORT [employer] Ultrasound of the Kidneys, 07/23/2018. Clinical History: [...] MD Report Verified Date/Time:07/23/2018 17:47:46 Reading Location: [address] Ultrasound Reading Room Procedure Note Interface, External Ris In - 07/23/2018 5:49 PM [employer]ED CONTAINER F[employer]ER FINAL REPORT Ultrasound of the Kidneys, 07/23/2018. [...] Report Verified Date/Time: 07/23/2018 17:47:46 Reading Location: [address] Ultrasound Reading Room Performing Organization Address City/[facility] Phone Number [facility] Blood culture (07/22/2018 10:03 AM PRESSURISED CONTAINER FILLER)Only the most recent of2 resultswithin the time period is included. Result No growth in 5 days [facility] Specimen Blood Performing Organization Address [facility] Phone Number [address] [address] [phone] [place] Vitamin B12 and Folate (07/22/2018 4:26 AM PRESS[employer]ED CONTAINER FILLER) Vitamin B12 <146 (L) 213 - 816 pg/mL [facility] Folate 16.2 >=7.0 ng/mL [facility] Specimen Blood Performing Organization Address [facility] Phone Number [address] [address] [place] Iron, TIBC, % sat. (without ferritin) (07/21/2018 6:12 AM [employer]ED CONTAINER [employer]ILLER) Iron 83 40 - 160 ug/dL [facility] TIBC 304 250 - 450 ug/dL [facility] Iron % Saturation 27 20 - 55 % [facility] Specimen Blood Performing Organization Address [facility] Phone Number [address] [address] [place] aPTT (07/21/2018 6:12 AM PR[employer]ED CONTAINER FILLER) PTT 28.7 22.5 - 36.0 seconds [facility] Specimen Blood Performing Organization Address [facility] Phone Number [address] [address] [place] Prothrombin time/INR (07/21/2018 6:12 AM PR[employer]ED CONTAINER FILLER) Protime 14.6 11.7 - 14.7 seconds [facility] INR 1.1 <=5.9 [facility] Specimen Blood Narrative Performed At RECOMMENDED COUMADIN/WARFARIN INR THERAPY [facility] RANGES STANDARD DOSE: 2.0 - 3.0 Includes: PROPHYLAXIS for venous thrombosis, systemic embolization; TREATMENT for venous thrombosis and/or pulmonary embolus. HIGH RISK: Target INR is 2.5-3.5 for patients with mechanical heart valves. Performing Organization Address City/State/Zipcode Phone Number [address] [phone] CENTER Ferritin (07/21/2018 6:12 AM PRESSURISED CONTAINER FILLER) Ferritin 250 5 - 275 ng/mL [facility] Specimen Blood Performing Organization Address City/[facility]/Zipcode Phone Number [address] [address] CENTER after 12/30/2017 Insurance Payer Benefit Plan / Subscriber ID Type Phone Address Group AETNA - MEDICARE AETNA MEDICARE O xxxxxxxx [phone] [address] [place] [address] Advance Directives For more information, please contact:[address] [phone] Code Status Date Activated Date Inactivated Comments Full Code 07/21/2018 4:39 AM This code status was determined by: Patient
--- OUTSIDE RECORDS SUMMARY | 2018-12-31 14:34 | XMS REPORT | Continuity of Care Document ---
:1930 Author Organization [facility] Care Team Providers Name Role Phone MD [...] AETNA - [employer] (MEDICARE SUPPLEMENT) AETNA [[id number]] [place] [employer] AETNA - [place] [employer] (MEDICARE SUPPLEMENT) AETNA [[id number]] [place] [employer] AETNA - [place] [employer] (MEDICARE SUPPLEMENT) AETNA [[id number]] [place] [employer] AETNA - [place] [employer] (MEDICARE SUPPLEMENT) AETNA [[id number]] [place] [employer] AETNA - [employer] [employer] (MEDICARE SUPPLEMENT) Encounters Encounter Performer Location Date Office Visit Reg Abrams MD [facility] Apr 06, 2014 Problems Problem Effective [...] 2012Jul 15, platelet count PLATELETS 404 K/CMM [phone] /mm3 Jul 15, prostate specific PSA < 0.01 0.00-4.00 2012 antigen ng/mL ng/mL Jul 15, carcinoembryonic CEA 14.9 ng/mL 0.0-3.0 High 2013 antigen
--- OUTSIDE RECORDS SUMMARY | 2018-12-31 14:34 | XMS REPORT | Continuity of Care Document ---
:1930 Author Organization [facility] Care Team Providers Name Role Phone MD Abrams Luis Unavailable Unavailable Insurance Providers Payer name Policy type / Policy ID Covered libertarian ID Policy Andrews Coverage type [place] [employer] AETNA - [place] [employer] (MEDICARE SUPPLEMENT) AETNA - [place] [employer] (MEDICARE SUPPLE[place]) [place] [employer] [place] [employer] A[place] (MEDICARE REPLACEMENT [place] PPO) [place]: [place] [employer] A[place] (MEDICARE REPLACEMENT [place] PPO) [place]: [employer] [place] [employer] [place] [employer] AETNA - [place] [employer] (MEDICARE SUPPLE[place]) [place] [employer] AETNA - [place] [employer] (MEDICARE SUPPLEMENT) [place]ETNA [[id number]] [place] AETNA - [place] [employer] (MEDICARE SUPPLEMENT) AETNA [[id number]] [place] AETNA - [place] [employer] (MEDICARE SUPPLEMENT) AETNA [[id number]] [place] AETNA - [place] [employer] (MEDICARE SUPPLEMENT) AETNA [[id number]] [place] [employer] AETNA - [employer] (MEDICARE SUPPLEMENT) Encounters Encounter Performer Location Date Lab Report Reg Abrams MD [facility] Apr 06, 2014 Problems Problem [...] 2012Jul 15, platelet count PLATELETS 404 K/CMM [phone] /mm3 Apr 06, cholesterol, serum CHOLESTEROL 160 [...]
--- OUTSIDE RECORDS SUMMARY | 2018-12-31 14:34 | XMS REPORT | Continuity of Care Document ---
:1930 Author Organization [facility] Care Team Providers Name Role Phone [...] AETNA - [place] [employer] (MEDICARE SUPPLEMENT) AETNA [[id number]] [place] [employer] AETNA - [place] [employer] (MEDICARE SUPPLEMENT) [place]NA [[id number]] [place] AETNA - [place] CHEM[employer] (MEDICARE SUPPLEMENT) AETNA [[id number]] [place] [employer] AETNA - [place] CHEM[employer] (MEDICARE SUPPLEMENT) AETNA [[id number]] [place] [employer] AETNA - [place] (MEDICARE SUPPLEMENT) Encounters Encounter Performer Location Date Office Visit Reg Abrams MD [facility] Apr 09, 2014 Problems Problem Effective Dates [...] 2012Jul 15, platelet count PLATELETS 404 K/CMM [phone] /mm3 Apr 06, cholesterol, serum CHOLESTEROL 160 [...]
--- OUTSIDE RECORDS SUMMARY | 2018-12-31 14:34 | XMS REPORT | Continuity of Care Document ---
[...] Group Vax) has been administered influenza 06/11/2012 [facility] Medical immunization (Flu Group Vax) has been administered influenza 08/17/2009 [facility] Medical immunization (Flu Group Vax) has been administered influenza 04/15/2009 [facility] Medical immunization (Flu Group Vax) has been administered influenza 05/14/2008 [facility] Medical immunization (Flu Group Vax) has been administered influenza 05/24/2007 [facility] Medical immunization (Flu Group Vax) has been administered pneumococcal 09/18/2006 [facility] Medical immunization Group administered Results [...] Chemistry BUN/CREAT 18 6 - 25 2014 [facility] Group Chemistry ALBUMIN 5.0 3.5 - 5.0 [...] Type Number For Provider Date Date Visit [facility] Lab Report [id number] Radha04/06 Chidi [facility] Office [id number] 04/06 [place] Visit 520 [facility] Office [id number] 04/09 [place] Visit 810 [facility] Office [id number] 06/24 [place] Visit 690 [facility] Office [id number] 12/25 Chidi Visit 550 [facility] Office [id number] 01/25 Chidi Visit 680 [facility] Outpatient [id number] RADHA 05/[address] [facility] [place] Outpatient [id number] RADHA 07/[address] [facility] [place] Outpatient [id number] RADHA 08/[address] [facility] [place] Outpatient [id number] RADHA08/26 [facility] [place] Outpatient [id number] RADHA 09/15 [facility] [place] Outpatient [id number] RADHA 11/04 [facility] [place] Outpatient [id number] RADHA12/27 [facility] [place] Procedures Procedure Code Date Perfomer Comments Source colonoscopy [id number] 01/16/2012 [facility] colonoscopy [id number] 01/16/2012 [facility] bone density 4002.65 07/13/2003 [facility]
--- OUTSIDE RECORDS SUMMARY | 2018-12-31 14:35 | XMS REPORT | Continuity of Care Document ---
[...] AETNA - [employer] CHEMICAL (MEDICARE SUPPLEMENT) AETNA [[id number]] [place] [employer] AETNA - [place] CHEM[employer] (MEDICARE SUPPLEMENT) AETNA [[id number]] [place] [employer] AETNA - [place] [employer] (MEDICARE SUPPLEMENT) AETNA [[id number]] [place] [employer] AETNA - [place] [employer] (MEDICARE SUPPLEMENT) AETNA [[id number]] [place] [employer] AETNA - [place]MICAL (MEDICARE SUPPLEMENT) AETNA [[id number]] [place] [employer] AETNA - [place] CHEM[employer] (MEDICARE SUPPLEMENT) AETNA [[id number]] [place] AETNA - [place] CHEM[employer] (MEDICARE SUPPLEMENT) AETNA [[id number]] [place] [employer] AETNA - [place] CHEMICAL (MEDICARE SUPPLEMENT) AETNA (MEDICARE REPLACEMENT [place] PPO) AETNA [[id number]] [place] [employer] AETNA - [place] [employer] (MEDICARE SUPPLEMENT) AETNA [[id number]] [place] [employer] AETNA - [place] [employer] (MEDICARE SUPPLEMENT) AETNA [[id number]] [place] [employer] AETNA - [employer] (MEDICARE SUPPLEMENT) Encounters Encounter Performer Location Date Office Visit Reg Abrams MD [facility] Jan 25, 2015 Problems Problem Effective Dates [...] 2012Jul 15, platelet count PLATELETS 404 K/CMM [phone] /mm3 Apr 06, cholesterol, serum CHOLESTEROL 160 [...]
--- OUTSIDE RECORDS SUMMARY | 2018-12-31 14:35 | XMS REPORT | Continuity of Care Document ---
:1930 Author Organization [facility] Care Team Providers Name Role [...] AETNA - MATT CHEM[employer] (MEDICARE SUPPLEMENT) AETNA [[id number]] MEDICARE B-[place]: [employer] AETNA - MATT CHEMICAL (MEDICARE SUPPLEMENT) AETNA [[id number]] MEDICARE B-[place]: [employer] AETNA - MATT CHEMICAL (MEDICARE SUPPLEMENT) AETNA [[id number]] MEDICARE B-[place]: [employer] AETNA - MATT CHEM[employer] (MEDICARE SUPPLEMENT) AETNA [[id number]] MEDICARE B-[place]: [employer] AETNA - MATT CHEMICAL (MEDICARE SUPPLEMENT) AETNA [[id number]] MEDICARE B-[place]: [employer] AETNA - MATT CHEMICAL (MEDICARE SUPPLEMENT) AETNA [[id number]] MEDICARE B-[place]: [employer] AETNA - MATT CHEMICAL (MEDICARE SUPPLEMENT) AETNA [[id number]] MEDICARE B-[place]: [employer] AETNA - MATT CHEM[employer] (MEDICARE SUPPLEMENT) Encounters Encounter Performer Location Date Office Visit Reg Abrams MD [facility] Jun 24, 2014 Problems Problem Effective Dates [...] 2012Jul 15, platelet count PLATELETS 404 K/CMM 552-007 3222 /mm3 Apr 06, cholesterol, serum CHOLESTEROL 160 [...]
--- OUTSIDE RECORDS SUMMARY | 2018-12-31 14:35 | XMS REPORT | Continuity of Care Document ---
[...] AETNA - MATT CHEM[employer] (MEDICARE SUPPLEMENT) AETNA [[id number]] MEDICARE B-[place]: [employer] AETNA - MATT CHEMICAL (MEDICARE SUPPLEMENT) AETNA [[id number]] MEDICARE B-[place]: [employer] AETNA - MATT CHEMICAL (MEDICARE SUPPLEMENT) AETNA [[id number]] MEDICARE B-[place]: [employer] AETNA - MATT CHEMICAL (MEDICARE SUPPLEMENT) AETNA [[id number]] MEDICARE B-[place]: [employer] AETNA - MATT CHEMICAL (MEDICARE SUPPLEMENT) AETNA [[id number]] MEDICARE B-[place]: [employer] AETNA - MATT CHEMICAL (MEDICARE SUPPLEMENT) AETNA [[id number]] MEDICARE B-[place]: [employer] AETNA - MATT CHEMICAL (MEDICARE SUPPLEMENT) AETNA [[id number]] MEDICARE B-[place]: [employer] AETNA - MATT CHEMICAL (MEDICARE SUPPLEMENT) AETNA (MEDICARE REPLACEMENT BRENDAN PPO) AETNA [[id number]] MEDICARE B-[place]: [employer] AETNA - MATT CHEM[employer] (MEDICARE SUPPLEMENT) AETNA [[id number]] MEDICARE B-[place]: [employer] AETNA - MATT [employer] (MEDICARE SUPPLEMENT) Encounters Encounter Performer Location Date Office Visit Reg Abrams MD [facility] December 25, 2014 Problems Problem [...] 2012Jul 15, platelet count PLATELETS 404 K/CMM 798-045 1334 /mm3 Apr 06, cholesterol, serum CHOLESTEROL 160 [...]
--- OUTSIDE RECORDS SUMMARY | 2018-12-31 14:36 | XMS REPORT ---
:1930 [facility] Address [address] [place] [address] Dr. Romero [address] [place] [id number] Care Team Providers Name Role Phone TOBIN MAHAN Unavailable Unavailable Problems This patient has no known problems. Allergies, Adverse Reactions, Alerts This patient has no known allergies or adverse reactions. Medications This patient has no known medications. Results Test Description Test Time Test Comments Text Results Atomic Results Result Comments BLOOD CULTURE 2018-07-27 17:01:00 Test Item Value Reference Range Comments CULTURE (BEAKER) (test fhba=5404) No growth in 5 days BLOOD [id number] 17:01:00 Test Item Value Reference Range Comments CULTURE (BEAKER) (test tljj=9202) No growth in 5 days URINE [id number] 08:42:00 Test Item Value Reference Range Comments CULTURE (BEAKER) (test jbab=5800) No growth FL, CYSTOGRAM, [id number] 13:39:00Reason for exam:->Evaluate for erflux , KATHY [...] MDReport Verified Date/Time: 07/2018 13:39:30 Reading Location: [facility] B1 [id number] [facility] Consult Reading Room [facility] METABOLIC [id number] 06:35:00 Test Item Value Reference Range Comments SODIUM (BEAKER) (test 138 meq/L 136-145 gnhz=844) POTASSIUM (BEAKER) (test 4.4 meq/L 3.5-5.1 vzxr=481) CHLORIDE (BEAKER) (test 110 meq/L 98-107 owrz=223) CO2 (BEAKER) (test 15 meq/L 22-29 jyxw=200) BLOOD UREA NITROGEN 35 mg/dL 7-21 (BEAKER) (test cdwj=085) CREATININE (BEAKER) (test 2.07 mg/dL 0.57-1.25 qeqh=133) GLUCOSE RANDOM (BEAKER) 90 mg/dL 70-105 (test yyfr=755) CALCIUM (BEAKER) (test 9.5 mg/dL 8.4-10.2 gldk=095) EGFR (BEAKER) (test 31 mL/min/1.73 sq m ESTIMATED GFR IS NOT joyp=9014) ACCURATE CREATININE CLEARANCE IN PREDICTING GLOMERULAR FILTRATION RATE. ESTIMATED GFR IS NOT APPLICABLE FOR DIALYSIS PATIENTS. CBC W/PLT COUNT & AUTO [id number] 06:18:00 Test Item Value Reference Range Comments WHITE BLOOD CELL COUNT (BEAKER) (test clwy=692) 9.6 K/ L 3.5-10.5 RED BLOOD CELL COUNT (BEAKER) (test nveu=734) 3.63 M/ L 4.63-6.08 HEMOGLOBIN (BEAKER) (test waxy=733) 11.5 GM/DL 13.7-17.5 HEMATOCRIT (BEAKER) (test vqrg=579) 36.1 % 40.1-51.0 MEAN CORPUSCULAR VOLUME (BEAKER) (test hzfm=813) 99.4 fL 79.0-92.2 MEAN CORPUSCULAR HEMOGLOBIN (BEAKER) (test 31.7 pg 25.7-32.2 kboh=092) MEAN CORPUSCULAR HEMOGLOBIN CONC (BEAKER) (test 31.9 GM/DL 32.3-36.5 psoo=481) RED CELL DISTRIBUTION WIDTH (BEAKER) (test 13.1 % 11.6-14.4 rkan=779) PLATELET COUNT (BEAKER) (test kudg=634) 362 K/CU MM 150-450 MEAN PLATELET VOLUME (BEAKER) (test otzs=334) 9.6 fL 9.4-12.4 NUCLEATED RED BLOOD CELLS (BEAKER) (test 0 /100 WBC 0-0 hwwf=901) NEUTROPHILS RELATIVE PERCENT (BEAKER) (test 61 % aupj=595) LYMPHOCYTES RELATIVE PERCENT (BEAKER) (test 20 % xzir=476) MONOCYTES RELATIVE PERCENT (BEAKER) (test 13 % coin=119) EOSINOPHILS RELATIVE PERCENT (BEAKER) (test 6 % sylp=814) BASOPHILS RELATIVE PERCENT (BEAKER) (test 0 % gkvg=295) NEUTROPHILS ABSOLUTE COUNT (BEAKER) (test 5.82 K/ L 1.78-5.38 rztt=369) LYMPHOCYTES ABSOLUTE COUNT (BEAKER) (test 1.88 K/ L 1.32-3.57 prmm=615) MONOCYTES ABSOLUTE COUNT (BEAKER) (test 1.21 K/ L 0.30-0.82 efsz=460) EOSINOPHILS ABSOLUTE COUNT (BEAKER) (test 0.58 K/ L 0.04-0.54 nafs=865) BASOPHILS ABSOLUTE COUNT (BEAKER) (test 0.04 K/ L 0.01-0.08 zvrd=104) IMMATURE GRANULOCYTES-RELATIVE PERCENT (BEAKER) 1 % 0-1 (test lyoz=7906) RAD, CHEST, 1 VIEW, NON [id number] 18:46:00Reason for exam:->eval for PNAShould this be [...] Date/Time: 07/23/2018 18:46:30 Reading Location: [facility] [place] [facility] Reading Room Electronically signed by: ROBE BARTLETT M.D. on 06:46 PMU/S, RENAL, [id number] 17:47:00Reason for exam:-> hydronephrosis in jaydon pouchFINAL [...] patient's conduit. IMPRESSION:Moderate bilateral hydronephrosis. Signed: Juanito Hernandez MDReport Verified Date/Time: 07/23/2018 17:47:46 Reading Location: [facility] P006J Ultrasound Reading Room URINALYSIS W/ REFLEX URINE [id number] 10:02:00 Test Item Value Reference Range Comments COLOR (BEAKER) (test nbwo=703) Yellow CLARITY (BEAKER) (test dthq=330) Hazy SPECIFIC GRAVITY UA (BEAKER) (test uhos=775) 1.010 1.001-1.035 PH UA (BEAKER) (test idrt=168) 5.5 5.0-8.0 PROTEIN UA (BEAKER) (test njdw=206) 30 mg/dL Negative GLUCOSE UA (BEAKER) (test cwgn=646) Negative Negative KETONES UA (BEAKER) (test qgpd=013) Negative Negative BILIRUBIN UA (BEAKER) (test zfgj=969) Negative Negative BLOOD UA (BEAKER) (test rgrz=632) Trace Negative NITRITE UA (BEAKER) (test viud=377) Negative Negative LEUKOCYTE ESTERASE UA (BEAKER) (test qeag=762) Large Negative UROBILINOGEN UA (BEAKER) (test sofb=752) 0.2 mg/dL 0.2-1.0 RBC UA (BEAKER) (test nqla=341) 6 /HPF WBC UA (BEAKER) (test iler=266) 164 /HPF BACTERIA (BEAKER) (test jbzu=795) Rare CASTS (BEAKER) (test vkgf=5000) 1 /LPF SOURCE(BEAKER) (test pzxc=2718) BASIC METABOLIC [id number] 07:13:00 Test Item Value Reference Range Comments SODIUM (BEAKER) (test 139 meq/L 136-145 lvtw=636) POTASSIUM (BEAKER) (test 4.2 meq/L 3.5-5.1 nedk=946) CHLORIDE (BEAKER) (test 112 meq/L 98-107 cxrk=509) CO2 (BEAKER) (test 19 meq/L 22-29 mroa=725) BLOOD UREA NITROGEN 37 mg/dL 7-21 (BEAKER) (test qkll=946) CREATININE (BEAKER) (test 2.20 mg/dL 0.57-1.25 vslw=011) GLUCOSE RANDOM (BEAKER) 96 mg/dL 70-105 (test vbec=895) CALCIUM (BEAKER) (test 9.3 mg/dL 8.4-10.2 ruvh=639) EGFR (BEAKER) (test 29 mL/min/1.73 sq m ESTIMATED GFR IS NOT lhyr=3959) ACCURATE CREATININE CLEARANCE IN PREDICTING GLOMERULAR FILTRATION RATE. ESTIMATED GFR IS NOT APPLICABLE FOR DIALYSIS PATIENTS. CBC W/PLT COUNT & AUTO [id number] 06:54:00 Test Item Value Reference Range Comments WHITE BLOOD CELL COUNT (BEAKER) (test zziq=555) 7.4 K/ L 3.5-10.5 RED BLOOD CELL COUNT (BEAKER) (test efct=315) 3.33 M/ L 4.63-6.08 HEMOGLOBIN (BEAKER) (test jrni=714) 10.6 GM/DL 13.7-17.5 HEMATOCRIT (BEAKER) (test hhpi=479) 32.8 % 40.1-51.0 MEAN CORPUSCULAR VOLUME (BEAKER) (test hmdx=816) 98.5 fL 79.0-92.2 MEAN CORPUSCULAR HEMOGLOBIN (BEAKER) (test 31.8 pg 25.7-32.2 tnoq=734) MEAN CORPUSCULAR HEMOGLOBIN CONC (BEAKER) (test 32.3 GM/DL 32.3-36.5 pjsf=603) RED CELL DISTRIBUTION WIDTH (BEAKER) (test 13.2 % 11.6-14.4 zphm=644) PLATELET COUNT (BEAKER) (test gjus=134) 322 K/CU MM 150-450 MEAN PLATELET VOLUME (BEAKER) (test ubow=401) 9.3 fL 9.4-12.4 NUCLEATED RED BLOOD CELLS (BEAKER) (test 0 /100 WBC 0-0 pfpi=524) NEUTROPHILS RELATIVE PERCENT (BEAKER) (test 61 % nfrs=364) LYMPHOCYTES RELATIVE PERCENT (BEAKER) (test 20 % ajfx=656) MONOCYTES RELATIVE PERCENT (BEAKER) (test 13 % bnui=480) EOSINOPHILS RELATIVE PERCENT (BEAKER) (test 5 % mhjy=868) BASOPHILS RELATIVE PERCENT (BEAKER) (test 0 % brcr=469) NEUTROPHILS ABSOLUTE COUNT (BEAKER) (test 4.50 K/ L 1.78-5.38 ggxf=594) LYMPHOCYTES ABSOLUTE COUNT (BEAKER) (test 1.47 K/ L 1.32-3.57 xxuv=945) MONOCYTES ABSOLUTE COUNT (BEAKER) (test 0.97 K/ L 0.30-0.82 ctkr=938) EOSINOPHILS ABSOLUTE COUNT (BEAKER) (test 0.37 K/ L 0.04-0.54 lfck=892) BASOPHILS ABSOLUTE COUNT (BEAKER) (test 0.03 K/ L 0.01-0.08 qoam=647) IMMATURE GRANULOCYTES-RELATIVE PERCENT (BEAKER) 1 % 0-1 (test qrmd=4783) URINE [id number] 11:17:00 Test Item Value Reference Range Comments CULTURE (BEAKER) (test lxsi=2085) See comment 20-29,000 col/mL enteric organisms of >3 types. No further workup performed. Multiple organisms suggestive of colonization or contamination. Repeat collection recommended.VITAMIN B12 AND [id number] 06:08:00 Test Item Value Reference Range Comments VITAMIN B12 (BEAKER) (test kcms=127) < pg/mL 213-816 FOLATE (BEAKER) (test zwem=210) 16.2 ng/mL >=7.0 BASIC METABOLIC [id number] 05:46:00 Test Item Value Reference Range Comments SODIUM (BEAKER) (test 140 meq/L 136-145 kfbb=884) POTASSIUM (BEAKER) (test 4.4 meq/L 3.5-5.1 lndn=500) CHLORIDE (BEAKER) (test 115 meq/L 98-107 jkkz=123) CO2 (BEAKER) (test 15 meq/L 22-29 ylek=101) BLOOD UREA NITROGEN 49 mg/dL 7-21 (BEAKER) (test dvxh=868) CREATININE (BEAKER) (test 3.20 mg/dL 0.57-1.25 ejch=142) GLUCOSE RANDOM (BEAKER) 93 mg/dL 70-105 (test ilzz=978) CALCIUM (BEAKER) (test 9.1 mg/dL 8.4-10.2 iria=760) EGFR (BEAKER) (test 19 mL/min/1.73 sq m ESTIMATED GFR IS NOT lwxt=9017) ACCURATE CREATININE CLEARANCE IN PREDICTING GLOMERULAR FILTRATION RATE. ESTIMATED GFR IS NOT APPLICABLE FOR DIALYSIS PATIENTS. CBC W/PLT COUNT & AUTO [id number] 05:09:00 Test Item Value Reference Range Comments WHITE BLOOD CELL COUNT (BEAKER) (test htdj=294) 10.1 K/ L 3.5-10.5 RED BLOOD CELL COUNT (BEAKER) (test iwlu=201) 3.11 M/ L 4.63-6.08 HEMOGLOBIN (BEAKER) (test cioo=275) 9.9 GM/DL 13.7-17.5 HEMATOCRIT (BEAKER) (test irzf=234) 31.5 % 40.1-51.0 MEAN CORPUSCULAR VOLUME (BEAKER) (test bqko=606) 101.3 fL 79.0-92.2 MEAN CORPUSCULAR HEMOGLOBIN (BEAKER) (test 31.8 pg 25.7-32.2 xtjw=216) MEAN CORPUSCULAR HEMOGLOBIN CONC (BEAKER) (test 31.4 GM/DL 32.3-36.5 wawe=719) RED CELL DISTRIBUTION WIDTH (BEAKER) (test 13.4 % 11.6-14.4 nyxb=762) PLATELET COUNT (BEAKER) (test nxyx=320) 318 K/CU MM 150-450 MEAN PLATELET VOLUME (BEAKER) (test ozlx=541) 9.7 fL 9.4-12.4 NUCLEATED RED BLOOD CELLS (BEAKER) (test 0 /100 WBC 0-0 ubyd=089) NEUTROPHILS RELATIVE PERCENT (BEAKER) (test 71 % gchg=996) LYMPHOCYTES RELATIVE PERCENT (BEAKER) (test 13 % iwaz=035) MONOCYTES RELATIVE PERCENT (BEAKER) (test 10 % xarr=613) EOSINOPHILS RELATIVE PERCENT (BEAKER) (test 4 % jshv=449) BASOPHILS RELATIVE PERCENT (BEAKER) (test 0 % fcgw=516) NEUTROPHILS ABSOLUTE COUNT (BEAKER) (test 7.21 K/ L 1.78-5.38 whtz=065) LYMPHOCYTES ABSOLUTE COUNT (BEAKER) (test 1.31 K/ L 1.32-3.57 hpdw=149) MONOCYTES ABSOLUTE COUNT (BEAKER) (test 1.02 K/ L 0.30-0.82 pkrs=630) EOSINOPHILS ABSOLUTE COUNT (BEAKER) (test 0.45 K/ L 0.04-0.54 zygi=328) BASOPHILS ABSOLUTE COUNT (BEAKER) (test 0.04 K/ L 0.01-0.08 rkeb=108) IMMATURE GRANULOCYTES-RELATIVE PERCENT (BEAKER) 1 % 0-1 (test hzos=5575) BASIC METABOLIC [id number] 10:41:00 Test Item Value Reference Range Comments SODIUM (BEAKER) (test 141 meq/L 136-145 nyid=126) POTASSIUM (BEAKER) (test 4.2 meq/L 3.5-5.1 pccw=890) CHLORIDE (BEAKER) (test 116 meq/L 98-107 gsst=160) CO2 (BEAKER) (test 14 meq/L 22-29 trdy=587) BLOOD UREA NITROGEN 46 mg/dL 7-21 (BEAKER) (test fxjl=598) CREATININE (BEAKER) (test 2.77 mg/dL 0.57-1.25 uomp=406) GLUCOSE RANDOM (BEAKER) 136 mg/dL 70-105 (test yznw=004) CALCIUM (BEAKER) (test 8.9 mg/dL 8.4-10.2 tgum=181) EGFR (BEAKER) (test 22 mL/min/1.73 sq m ESTIMATED GFR IS NOT uifn=6658) ACCURATE CREATININE CLEARANCE IN PREDICTING GLOMERULAR FILTRATION RATE. ESTIMATED GFR IS NOT APPLICABLE FOR DIALYSIS PATIENTS. IRON, TIBC, % SAT. (WITHOUT FERRITIN)2018-07-21 07:18:00 Test Item Value Reference Range Comments IRON (BEAKER) (test fwbg=114) 83 ug/dL 40-160 TOTAL IRON BINDING CAPACITY (BEAKER) (test 304 ug/dL 250-450 uvti=411) IRON % SATURATION (2) (BEAKER) (test kbwf=8649) 27 % 20-55 [id number] 07:12:00 Test Item Value Reference Range Comments FERRITIN (BEAKER) (test lvew=784) 250 ng/mL 5-275 CBC W/PLT COUNT & AUTO [id number] 07:02:00 Test Item Value Reference Range Comments WHITE BLOOD CELL COUNT (BEAKER) (test hfus=529) 14.8 K/ L 3.5-10.5 RED BLOOD CELL COUNT (BEAKER) (test tkhb=446) 3.40 M/ L 4.63-6.08 HEMOGLOBIN (BEAKER) (test czqa=833) 10.7 GM/DL 13.7-17.5 HEMATOCRIT (BEAKER) (test mwwu=776) 34.0 % 40.1-51.0 MEAN CORPUSCULAR VOLUME (BEAKER) (test eflw=312) 100.0 fL 79.0-92.2 MEAN CORPUSCULAR HEMOGLOBIN (BEAKER) (test 31.5 pg 25.7-32.2 mywb=327) MEAN CORPUSCULAR HEMOGLOBIN CONC (BEAKER) (test 31.5 GM/DL 32.3-36.5 urql=628) RED CELL DISTRIBUTION WIDTH (BEAKER) (test 13.2 % 11.6-14.4 vpsi=482) PLATELET COUNT (BEAKER) (test dtju=003) 363 K/CU MM 150-450 MEAN PLATELET VOLUME (BEAKER) (test snpt=264) 9.8 fL 9.4-12.4 NUCLEATED RED BLOOD CELLS (BEAKER) (test 0 /100 WBC 0-0 guqa=231) NEUTROPHILS RELATIVE PERCENT (BEAKER) (test 78 % ksha=819) LYMPHOCYTES RELATIVE PERCENT (BEAKER) (test 10 % xdnr=086) MONOCYTES RELATIVE PERCENT (BEAKER) (test 10 % zazn=117) EOSINOPHILS RELATIVE PERCENT (BEAKER) (test 2 % asrd=068) BASOPHILS RELATIVE PERCENT (BEAKER) (test 0 % xkro=061) NEUTROPHILS ABSOLUTE COUNT (BEAKER) (test 11.47 K/ L 1.78-5.38 tfqk=508) LYMPHOCYTES ABSOLUTE COUNT (BEAKER) (test 1.46 K/ L 1.32-3.57 xnoe=745) MONOCYTES ABSOLUTE COUNT (BEAKER) (test 1.45 K/ L 0.30-0.82 jxdn=623) EOSINOPHILS ABSOLUTE COUNT (BEAKER) (test 0.25 K/ L 0.04-0.54 aoxp=616) BASOPHILS ABSOLUTE COUNT (BEAKER) (test 0.03 K/ L 0.01-0.08 xrks=681) IMMATURE GRANULOCYTES-RELATIVE PERCENT (BEAKER) 1 % 0-1 (test avqo=6756) PROTHROMBIN TIME/[id number] 06:34:00 Test Item Value Reference Range Comments PROTIME (BEAKER) (test uwrk=454) 14.6 seconds 11.7-14.7 INR (BEAKER) (test xecf=172) 1.1 <=5.9 RECOMMENDED COUMADIN/WARFARIN INR THERAPY RANGESSTANDARD DOSE: 2.0 - 3.0 Includes: PROPHYLAXIS forvenous thrombosis, systemic embolization; TREATMENT for venous thrombosis and/or pulmonary embolus.HIGH RISK: Target INR is 2.5-3.5 for patients with mechanical heart valves.[id number] 06:34:00 Test Item Value Reference Range Comments PARTIAL THROMBOPLASTIN TIME (BEAKER) (test 28.7 seconds 22.5-36.0 tjss=127)
--- OUTSIDE RECORDS SUMMARY | 2018-12-31 14:36 | XMS REPORT | Continuity of Care Document ---
:1930 Author Organization [facility] Care Team Providers Name [...] AETNA - MATT CHEM[employer] (MEDICARE SUPPLEMENT) AETNA [[id number]] MEDICARE B-[place]: [employer] AETNA - [employer] CHEM[employer] (MEDICARE SUPPLEMENT) AETNA [[id number]] MEDICARE B-[place]: [employer] AETNA - MATT CHEMICAL (MEDICARE SUPPLEMENT) AETNA [[id number]] MEDICARE B-[place]: [employer] AETNA - MATT CHEMICAL (MEDICARE SUPPLEMENT) AETNA [[id number]] MEDICARE B-[place]: [employer]UTIONS AETNA - MATT CHEMICAL (MEDICARE SUPPLEMENT) AETNA [[id number]] MEDICARE B-[place]: [employer] SOLUTIONS AETNA - MATT CHEMICAL (MEDICARE SUPPLEMENT) AETNA [[id number]] MEDICARE B-[place]: [employer] SOLUTIONS AETNA - MATT CHEMICAL (MEDICARE SUPPLEMENT) AETNA [[id number]] MEDICARE B-[place]: [employer]UTIONS AETNA - MATT CHEMICAL (MEDICARE SUPPLEMENT) AETNA (MEDICARE REPLACEMENT BRENDAN PPO) AETNA [[id number]] MEDICARE B-[place]: [employer] SOLUTIONS AETNA - MATT CHEMICAL (MEDICARE SUPPLEMENT) AETNA [[id number]] MEDICARE B-[place]: [employer] SOLUTIONS AETNA - MATT CHEMICAL (MEDICARE SUPPLEMENT) AETNA [[id number]] MEDICARE B-[place]: [employer] AETNA - MATT CHEM[employer] (MEDICARE SUPPLEMENT) Encounters Encounter Performer Location Date Office Visit Reg Abrams MD [facility] Jan 25, 2015 Problems Problem Effective [...] 2012Jul 15, platelet count PLATELETS 404 K/CMM 905-071 0621 /mm3 Jan 25, hemoglobin, blood HGB 13.5 g/dL 14.0-18.0 Low 2014Jan 25, hematocrit, blood HCT 39.8 % 42.0-54.0 Low 2014Jan 25, platelet count PLATELETS 308 K/CMM 546-485 3346 /mm3 Apr 06, cholesterol, serum CHOLESTEROL 160 [...] Jan 25, sodium, serum SODIUM 141 MEQ/L 362-021 1970 mmol/L Jan 25, potassium, serum POTASSIUM 4.9 [...]
[2018-12-31 15:08] VITALS: BMI 25.7
[2018-12-31] MEDS ORDERED: DIPHENHYDRAMINE 25 MG TAB/CAP PO PRN (16:00)
[2018-12-31] MEDS ORDERED: ONDANSETRON 4 MG/2 ML VIAL IV PRN (16:00)
[2018-12-31] MEDS ORDERED: NACHLORIDE 0.45% 1,000 ML IV SCH (16:00)
[2018-12-31] MEDS ORDERED: POLYETHYL GLY 3350 17 GM/DOSE PO PRN (16:00)
[2018-12-31] MEDS ORDERED: ONDANSETRON 4 MG (ODT) TAB PO PRN (16:00)
[2018-12-31] MEDS ORDERED: PNEUMOCOCCAL VACCINE 0.5 ML IMVAC ONE (16:00)
[2018-12-31] MEDS ORDERED: ACETAMINOPHEN 325 MG TABLET PO PRN (16:00)
[2018-12-31] MEDS ORDERED: LOPERAMIDE HCL 2 MG CAPSULE PO PRN (16:00)
[2018-12-31] MEDS ORDERED: ALBUTEROL 2.5 MG/3 ML NEB SOL IH PRN (16:01)
[2018-12-31 16:04] VITALS: O2SAT 94
[2018-12-31 16:42] LABS: Protime INR 1.01
[2018-12-31 16:43] LABS: Absolute Lymphocytes (CBC) 1.5 K/uL (0.7-4.9); Absolute Monocytes 0.4 K/uL (0.1-1.3); Absolute Neutrophil 3.6 K/uL (1.8-8.0); Basophils % 0.7 % (0-1.3); Eosinophils % 10.3 % (0-4.4); Hematocrit 33.5 % (39.6-49.0); Lymphocytes % 23.9 % (15.3-44.8); MPV 7.5 fL (7.6-11.3); Monocytes % 6.8 % (3.3-12.3); RBC Red Blood Cell Count 3.49 M/uL (4.33-5.43)
[2018-12-31] MEDS: ENOXAPARIN 40 MG/0.4 ML SQ SCH (16:45)
--- NOTE | 2018-12-31 17:47 | EKG ---
Test Date: 2018-12-31 Test Time: 16:39:14 Manager Of Housekeeping: DAVID MEASUREMENT RESULTS: Intervals: Rate: 75 MI: 250 QRSD: 84 QT: 380 QTc: 424 [place]: P: 65 MI: 250 QRS: 13 T: 45 INTERPRETIVE STATEMENTS: Sinus rhythm with 1st degree AV block with occasional premature ventricular complexes Otherwise normal ECG Compared to ECG 11/25/2018 23:42:13 No significant changes Electronically Signed On 12-31-18 17:46:32 CDT by Bigg Heard
[2018-12-31 17:53] LABS: Albumin 3.8 g/dL (3.4-5.0); Bilirubin Direct 0.1 mg/dL (0-0.2); Bilirubin Total 0.3 mg/dL (0.2-1.0); Magnesium 1.8 mg/dL (1.8-2.4); Phosphorus 3.4 mg/dL (2.5-4.9); Potassium 3.8 mmol/L (3.5-5.1); Protein, Total 7.7 g/dL (6.4-8.2); Thyroid Stimulating Hormone 1.91 uIU/mL (0.360-3.740)
--- NOTE | 2018-12-31 18:26 | RAD REPORT ---
EXAM DESCRIPTION: CT - Thorax W/ Con - 12/31/2018 6:17 pm CLINICAL HISTORY: Persistent cough and congestion, prior bladder cancer COMPARISON: Contrast CT chest December 01, 2018, noncontrast CT chest May 08, 2018. TECHNIQUE: Dynamically enhanced 5 mm thick images of the chest were obtained during administration o f 100 mL non-ionic IV contrast. All CT scans are performed using dose optimization technique as appropriate and may include automated exposure control or mA/KV adjustment according to patient size. FINDINGS: No acute infiltrates seen in the lung parenchyma. Scarring changes are present at the ante rolateral right lung base and in the medial posterior right lung base. These findings are stable from the comparison. No pleural thickening or pleural effusion. No pneumothorax. No chest wall mass or ab normal axillary lymphadenopathy. Lymph nodes along the superior margin right hilum are not clearly different back to April 2018. R etrocaval-pretracheal lymph node has not changed from prior imaging. No new or progressive mediastina l or hilar process. IMPRESSION: CT chest imaging shows no pneumonia or acute lung parenchymal process. Above detailed findings are not clearly different back to April 2018.
[2018-12-31] MEDS: IPRATROPIUM BROM 0.5MG/2.5ML IH SCH (19:35)
[2018-12-31] MEDS: LEVALBUTEROL 1.25 MG/3 ML NEB IH SCH (19:35)
--- NOTE | 2018-12-31 19:39 | RAD REPORT ---
EXAM DESCRIPTION: RAD - Chest Pa And Lat (2 Views) - 12/31/2018 6:57 pm CLINICAL HISTORY: Shortness of breath, pneumonia COMPARISON: November 30, 2018 TECHNIQUE: PA and lateral views of the chest were obtained. FINDINGS: The lungs are mildly fibrotic throughout both lung lucas. Focally more prominent fibrotic changes present in the lower right lung field. There is tenting of the right hemidiaphragm. These ch anges are not substantially different from comparison. Heart size is normal and central vasculature is within normal limits. No pleural effusion or pneumot horax seen. No acute bony finding noted. Aortic tortuosity present. IMPRESSION: Fibrotic lung change similar to comparison. No acute findings seen.
[2018-12-31] MEDS ORDERED: POTASSIUM CL SA 10 MEQ TAB PO ONE (20:00)
[2018-12-31] MEDS ORDERED: MAGNESIUM SULFATE 1 gm IVPB 1 GM/100 ML BAG IV ONE (20:00)
[2018-12-31] MEDS ORDERED: ALBUTEROL 2.5 MG/3 ML NEB SOL IH SCH (20:00)
[2018-12-31] MEDS ORDERED: PIPER/TAZO/NS 2.25gm 2.25 GM/50 ML BAG ONE (22:53)
[2018-12-31] MEDS ORDERED: PIPER/TAZO/NS 3.375gm 6.750 GM/200 ML BAG ONE (23:41)
[2019-01-01] MEDS ORDERED: PIPER/TAZO/NS 2.25gm 2.25 GM/50 ML BAG IVPB SCH
[2019-01-01] MEDS: PIPER/TAZO/NS 3.375gm 3.375 GM/100 ML BAG IVPB SCH ×2 (00:19→05:13)
[2019-01-01 00:54] LABS: Urine Appearance CLEAR; Urine Bilirubin NEGATIVE (NEG); Urine Blood NEGATIVE (NEG); Urine Color YELLOW; Urine Glucose NEGATIVE (NEG); Urine Protein 1+ (NEG); Urine Specific Gravity 1.015 (1.005-1.030); Urine Urobilinogen 0.2 mg/dL (0.2-1.0); Urine pH 5.5 (5.0-7.0)
[2019-01-01 01:12] LABS: Urine Microscopic Reflex ORDER UMIC
[2019-01-01] MEDS: IPRATROPIUM BROM 0.5MG/2.5ML IH SCH ×2 (01:15→08:08)
[2019-01-01] MEDS: LEVALBUTEROL 1.25 MG/3 ML NEB IH SCH ×2 (01:15→08:08)
[2019-01-01 01:43] LABS: Urine Bacteria <20 /HPF (NONE SEEN); Urine Culture Reflex Order REFLEXED
[2019-01-01 05:46] LABS: Absolute Lymphocytes (CBC) 1.8 K/uL (0.7-4.9); Absolute Monocytes 0.6 K/uL (0.1-1.3); Absolute Neutrophil 3.8 K/uL (1.8-8.0); Basophils % 0.7 % (0-1.3); Eosinophils % 8.7 % (0-4.4); Hematocrit 33.3 % (39.6-49.0); Lymphocytes % 26.7 % (15.3-44.8); MPV 7.4 fL (7.6-11.3); Monocytes % 8.2 % (3.3-12.3); RBC Red Blood Cell Count 3.51 M/uL (4.33-5.43)
[2019-01-01 06:04] LABS: Albumin 3.6 g/dL (3.4-5.0); Bilirubin Total 0.3 mg/dL (0.2-1.0); Protein, Total 7.2 g/dL (6.4-8.2)
[2019-01-01] MEDS: ENOXAPARIN 40 MG/0.4 ML SQ SCH (08:01)
[2019-01-01] MEDS ORDERED: ENALAPRIL 10 MG TAB PO SCH (09:00)
[2019-01-01] MEDS ORDERED: ENOXAPARIN 40 MG/0.4 ML SQ SCH (09:00)
[2019-01-01] MEDS ORDERED: HYDRALAZINE HCL 25 MG TABLET PO SCH (09:00)
[2019-01-01] MEDS ORDERED: AMLODIPINE 5 MG TAB PO SCH (09:00)
[2019-01-01] MEDS ORDERED: MAGNESIUM OXIDE 400 MG TAB PO SCH (09:00)
[2019-01-01] MEDS ORDERED: PIPER/TAZO/NS 3.375gm 3.375 GM/100 ML BAG IVPB SCH (11:00)
[2019-01-01 15:20] VITALS: BP 130/68; TEMP 98.1
--- NOTE | 2019-01-01 21:55 | P.DS ---
Admission Date: 12/31/18 Discharge Date: 01/01/19 Disposition: ROUTINE DISCHARGE Discharge Condition: [facility] Hospital Course: MR. DAHL HAS CHRONIC COUGH, HE HAS FAILED TO RECOVER AFTER MULTIPLE INHALER TRIALS. HE LAST ADMISSION HAD FEVER, CHILLS AND POSITIVE BLOOD CULTURE. HE DID WELL AFTER TWO WEEKS OF ZOSYN , RECOVERED FOR A WEEK AND THEN STARTED TO COUGH AGAIN. HE HAS NO NEW FINDINGS ON CT SCAN. HIS [employer] IS REJECTING TO PAY FOR PET CT SCAN. I WILL REFER HIM TO [facility]. STABLE FOR HOME. Vital Signs/Physical Exam: Temp Pulse Resp BP Pulse Ox 98.1 F 78 18 130/68 94 01/01/19 12:00 01/01/19 12:00 01/01/19 12:00 01/01/19 12:00 01/01/19 12:00 Laboratory Data at Discharge: WBC 6.9 K/uL (4.3-10.9) 01/01/19 05:15 Hgb 11.2 g/dL (13.6-17.9) L 01/01/19 05:15 Hct 33.3 % (39.6-49.0) L 01/01/19 05:15 Plt Count 231 K/uL (152-406) 01/01/19 05:15 PT 11.9 SECONDS (9.5-12.5) 12/31/18 16:15 INR 1.01 12/31/18 16:15 APTT 29.8 SECONDS (24.3-36.9) 12/31/18 16:15 Sodium 142 mmol/L (136-145) 01/01/19 05:15 Potassium 4.0 mmol/L (3.5-5.1) 01/01/19 05:15 BUN 24 mg/dL (7-18) H 01/01/19 05:15 Creatinine 1.33 mg/dL (0.55-1.3) H 01/01/19 05:15 Glucose 89 mg/dL (74-106) 01/01/19 05:15 Phosphorus 3.4 mg/dL (2.5-4.9) 12/31/18 16:15 Magnesium 2.0 mg/dL (1.8-2.4) 01/01/19 05:15 Total Bilirubin 0.3 mg/dL (0.2-1.0) 01/01/19 05:15 AST 32 U/L (15-37) 01/01/19 05:15 ALT 33 U/L (12-78) 01/01/19 05:15 Alkaline Phosphatase 56 U/L (45-117) 01/01/19 05:15 Home Medications: Amlodipine Besylate 5 mg PO DAILY 12/31/18 Ascorbate Calcium [Vitamin C] 1,000 mg PO DAILY 12/31/18 Biotin [Nail-Ex] 2,500 mcg PO DAILY 12/31/18 Cyanocobalamin (Vitamin B-12) [Vitamin B12] 2,500 mcg PO DAILY 12/31/18 Enalapril [Vasotec] 10 mg PO DAILY 12/31/18 Hydralazine HCl [Apresoline] 75 mg PO BID 12/31/18 Magnesium Oxide 400 mg PO DAILY 12/31/18 Multivitamin [Multiple Vitamins] 1 each PO DAILY 12/31/18 [place]-3/Dha/Epa/Fish Oil [[place]-3 Fish Oil 1,000 mg Sftg] 1 each PO DAILY Thiamine HCl [Vitamin B-1] 100 mg PO DAILY 12/31/18 Benzonatate [Tessalon Perle] 100 mg PO TID #100 cap 01/01/19 New Medications: Benzonatate [Tessalon Perle] 100 mg PO TID #100 cap Followup: James Arambula MD [Primary Care Provider] -
[2019-01-04 21:07] LABS: Vitamin D 1,25-Dihydroxy Total 42 pg/mL (18-72); Vitamin D,1,25-OH2, D2 <8 pg/mL
== END 2019-01-01 13:29 | disposition home or self-care (01) ==
LOC: 2ND 14:28
PROVIDERS: ADMIT Internal Medicine; ATTEND Internal Medicine
DX: J47.0 Bronchiectasis with acute lower respiratory infection (principal); I44.0 Atrioventricular block, first degree; I49.3 Ventricular premature depolarization; D64.9 Anemia, unspecified; I10 Essential (primary) hypertension; K21.9 Gastro-esophageal reflux disease without esophagitis; M19.90 Unspecified osteoarthritis, unspecified site; Z79.899 Other long term (current) drug therapy
CPT/HCPCS: 96365 ×4; 96367; 93005; 87040; 87088; 85025 ×2; 87086; 36415 ×2; 83735 ×2; 84100; 85610; 85730; 82652; 84443; 87077; 87186; 82248; 82607; 80053 ×2; 71260; 71046; 94640; Q9967; J1650 ×2; J3475; J2543 ×3; G0379; G0378; 81003; 81015

== ENCOUNTER 2021-05-03 13:54 | Emergency (ER) | payer OTHER ==
--- NOTE | 2021-05-03 14:59 | RAD REPORT ---
EXAM DESCRIPTION: CT - Head Brain Wo Cont - 05/03/2021 2:42 pm CLINICAL HISTORY: DIZZINESS, visual migraine headache, history of migraine headaches COMPARISON: Head Brain Wo Cont dated 03/23/2017 TECHNIQUE: Axial 5 mm thick images of the head were obtained without IV contrast. All CT scans are performed using dose optimization technique as appropriate and may include automated exposure control or mA/KV adjustment according to patient size. FINDINGS: No intracranial hemorrhage, mass, edema or shift of mid-line structures. No acute cortical based infarction. Moderate atrophy changes are present with ventricles in proportion. Moderate sever ity cerebral white matter chronic ischemic pattern also seen as stable. Dense arterial tree calcifica tions are present. No abnormal extra-axial fluid collections. Physiologic basal ganglia calcification s are present. Mastoid air cells, middle ears and paranasal sinuses are fully aerated. No acute bony findings. IMPRESSION: Negative non-contrast CT head examination for acute finding. Above detailed findings are similar to 2017.
[2021-05-03 15:26] LABS: Absolute Lymphocytes (CBC) 1.6 K/uL (0.7-4.9); Basophils % 0.4 % (0-1.3); Hematocrit 37.3 % (39.6-49.0); MPV 7.1 fL (7.6-11.3); Potassium 3.9 mmol/L (3.5-5.1); RBC Red Blood Cell Count 3.77 M/uL (4.33-5.43)
[2021-05-03 15:29] LABS: Protime INR 0.97
[2021-05-03] MEDS ORDERED: METOCLOPRAMIDE 10 MG/2mL INJ ONE (15:34)
[2021-05-03] MEDS ORDERED: NA CHLORIDE 0.9% 500 ML ONE (15:35)
[2021-05-03] MEDS ORDERED: dexAMETHasone 10 MG/ML VIAL ONE (15:35)
[2021-05-03 18:09] LABS: Urine Bacteria 20-50 /HPF (NONE SEEN); Urine Mucus 1+ /HPF (NONE SEEN); Urine RBC <5 /HPF (NONE SEEN)
--- NOTE | 2021-05-03 19:10 | RAD REPORT ---
EXAM DESCRIPTION: MRI - Brain W/Wo Cont - 05/03/2021 6:19 pm CLINICAL HISTORY: headache, unsteady gait COMPARISON: MRA Head Wo Cont dated 05/03/2021; MRA Neck W/Wo Cont dated 05/03/2021; Head Brain Wo Cont dated 05/03/2021 TECHNIQUE: Sagittal and axial T1-weighted images were obtained. Axial PD/heavily T2-weighted and T2- FLAIR images were obtained along with axial DWI/ADC mapping sequences. Coronal heavily T2 weighted s equence obtained. Axial and coronal post-contrast T1-weighted images were also obtained. A 16 ml Mul tihance contrast following utilized. FINDINGS: No intracranial hemorrhage is present. There is no mass, edema or shift structures. No ext ra-axial fluid collections. The ortiz matter- white matter junction is preserved. On the diffusion-weighted sequence there is a small 10 x 5 mm focus of restricted diffusion in the po sterior medial and inferior aspect of the right occipital lobe. There is no correlate on ADC mapping and the T2/IR sequences do not have a corresponding signal abnormality. No other diffusion signal abnormality seen. Moderate atrophy changes are present. Ventricles are in p roportion. Moderate chronic ischemic changes are scattered throughout the cerebral white matter. Brai nstem is spared any significant signal. Signal voids are seen as a normal finding in the major intrac ranial vessels. No globe or orbital content acute finding. No sella or supra sella abnormality. Postc ontrast views show no abnormal parenchymal enhancement including the area of diffusion signal abnorma lity in the right occipital lobe. No dural thickening or enhancement. Mastoid air cells and paranasal sinuses are clear. IMPRESSION: No intracranial hemorrhage or mass lesions seen. No edema or shift of midline structures . Diffusion imaging shows a small focus of signal abnormality in the posteromedial and inferior aspect of the right occipital lobe without signal abnormality on any other sequence. The small late subacute infarction is possible. This is not likely the source of the patient's headache and gait disturbance . Moderate atrophy and chronic ischemic changes are present. Ventricles are in proportion to any volume loss.
--- NOTE | 2021-05-03 19:15 | RAD REPORT ---
EXAM DESCRIPTION: MRI - MRA Head Wo Cont - 05/03/2021 6:19 pm CLINICAL HISTORY: Headache, dizziness, stroke-like symptoms COMPARISON: CT head same date, MRI brain with contrast same date TECHNIQUE: Axial and coronal 3D [id number] image acquisition was performed. 3D rotational images were generated with source and reconstruction images reviewed. Horizontal and vertical axis rotation al views generated using MIP protocol. FINDINGS: No aneurysm or vascular malformation identified. The anterior and middle cerebral artery d istribution show no significant atherosclerotic change. Distal internal carotid arteries also without significant atherosclerotic change, dissection or stenosis. Anterior communicating artery is present . Patient has a large dominant distal right vertebral artery. There is tortuosity present. This ectatic appearance does cause contour deformity of the right lateral brainstem. Distal left vertebral artery is quite small. There is no basilar artery stenosis. IMPRESSION: No aneurysm or vascular malformation. There is no stenosis or significant atheroscleroti c change seen. Distal right vertebral artery is tortuous and ectatic with the enlarged size and tortuosity resulting in contour deformity of the right lateral margin of the medulla. No associated brainstem signal abno rmality.
--- NOTE | 2021-05-03 19:19 | RAD REPORT ---
EXAM DESCRIPTION: MRI - MRA Neck W/Wo Cont - 05/03/2021 6:19 pm CLINICAL HISTORY: Headache, unsteady gait, dizziness COMPARISON: CT head same date, MRI brain same date, MRA brain same date TECHNIQUE: Axial and coronal 3D [id number] image acquisition was performed. 3D rotational images were generated with source and reconstruction images reviewed. Horizontal and vertical axis rotation al views generated using MIP protocol. FINDINGS: Aortic arch is 3 vessel configuration with no origins stenosis. Vertebral artery origins a re unremarkable. Bilateral common carotid arteries are tortuous proximally with no dissection or acut e finding. Tortuosity of the internal carotid arteries is mild and without dissection, stenosis or ac tree finding. Right vertebral artery is dominant. This dominance increases distally where the distal right vertebra l artery is tortuous and ectatic. As detailed on additional imaging the tortuosity and enlarged diame ter distorts the right lateral margin of the medulla. This would be a long-standing finding and proba azar would not explain an acute onset of headache and gait disturbance. IMPRESSION: MRA neck imaging shows no dissection or other acute vascular finding. The ectatic and tortuous distal right vertebral artery does result in is distorted or flattened conto ur to the right lateral margin of the medulla. These changes would be long-standing and probably not a source for acute onset headache or unsteady gait.
--- NOTE | 2021-05-03 20:48 | ER ---
Nurse's Notes [facility] Name: Avila Marsh Age: 89 yrs Sex: Male : 1930 Arrival Date: 05/03/2021 Time: 13:57 Bed 13 Private MD: Diagnosis: UTI/ Urinary tract infection, site not specified;Headache Presentation: 05/03 14:26 Chief complaint: Patient states: ELIZABETH since noon. Balance is off, worse than his usual ll1 migraine. Coronavirus screen: Vaccine status: Patient reports receiving the 2nd dose of the covid vaccine. At this time, the client does not indicate any symptoms associated with coronavirus-19. Ebola Screen: Patient denies travel to an Ebola-affected area in the 21 days before illness onset. Initial Sepsis Screen: Does the patient meet any 2 criteria? No. Patient's initial sepsis screen is negative. Does the patient have a suspected source of infection? Yes: S/S of meningitis or endocarditis. Risk Assessment: Do you want to hurt yourself or someone else? Patient reports no desire to harm self or others. Onset of symptoms was May 03, 2021. 14:26 Method Of Arrival: Ambulatory ll1 14:26 Acuity: ANA 3 ll1 Triage Assessment: 15:39 General: Appears comfortable, Behavior is calm, cooperative, appropriate for age. Pain: oh Complains of pain in headache Pain began suddenly, since noon. 15:39 Headache History: Other migraine. Pain: Pain currently is 5 out of 10 on a pain scale. oh Also complains of. Historical: - Allergies: 14:27 Ciprofloxacin; ll1 - Home Meds: 15:40 amlodipine 5 mg tab 1 tab once daily [Active]; biotin 2,500 mcg Oral cap daily oh [Active]; Fish Oil Oral daily [Active]; hydralazine 75 mg Oral tab 2 times per day [Active]; Magnesium Oxide Oral 400 mg daily [Active]; Multi-Day Oral daily [Active]; Vitamin C 1,000 mg Oral tab daily [Active]; - PMHx: 14:27 Anemia; Bladder cancer; DVT; Hypertension; kidney problems; ll1 - PSHx: 14:27 None; ll1 - Immunization history:: Client reports receiving the 2nd dose of the Covid vaccine. - Social history:: Smoking status: Patient denies any tobacco usage or history of. - Family history:: not pertinent. - Hospitalizations: : No recent hospitalization is reported. Screenin:38 Abuse screen: Denies threats or abuse. Nutritional screening: No deficits noted. oh Tuberculosis screening: No symptoms or risk factors identified. Fall Risk Gait- Impaired (20 pts.). Assessment: 15:35 Pain: Complains of pain in headache. oh 15:36 Neuro: Level of Consciousness is awake, alert, obeys commands, Oriented to person, oh place, time, Gait is unsteady, Reports headache. Cardiovascular: No deficits noted. Respiratory: No deficits noted. GI: No deficits noted. : Reports hx of bladder cancer. EENT: Reports ocular headache, no loss of vision. Derm: No deficits noted. Musculoskeletal: Reports unsteady gait. Vital Signs: 14:26 BP 181 / 82; Pulse 74; Resp 17; Temp 98.3; Pulse Ox 96% ; Weight 72.57 kg; Height 5 ft. ll1 7 in. (170.18 cm); Pain 6/10; 15:41 BP 156 / 66; Pulse 73; Resp 19; Pulse Ox 96% on R/A; oh 19:40 BP 149 / 74; Pulse 78; Resp 18; Pulse Ox 100% on R/A; Pain 0/10; kc4 21:02 BP 138 / 65; Pulse 81; Resp 18; Pulse Ox 99% on R/A; kg 14:26 Body Mass Index 25.06 (72.57 kg, 170.18 cm) ll1 [place] Coma Score: 20:42 Eye Response: spontaneous(4). Verbal Response: oriented(5). Motor Response: obeys radha commands(6). Total: 15. ED Course: 13:57 Patient arrived in ED. am2 14:25 Arm band placed on. ll1 14:27 Triage completed. ll1 14:34 Placed in gown. Bed in low position. Call light in reach. Adult w/ patient. ap3 14:36 Hugo Ann MD is Attending Physician. rn 14:38 Sophie Snyder, LETITIA is Primary Nurse. oh 14:38 Sophie Snyder RN is Primary Nurse. oh 14:42 CT Head Brain wo Cont In Process Unspecified. EDMS 15:02 Initial lab(s) drawn, by me, sent to lab. Inserted saline lock: 20 gauge in right kj1 antecubital area, using aseptic technique. Blood collected. 15:08 EKG done, by ED staff, reviewed by Hugo Ann MD. kj1 16:55 Urine Microscopic Only Sent. oh 16:55 Urine Culture Sent. oh 18:16 MRA Head Wo Cont In Process Unspecified. EDMS 18:16 MRA Neck W/Wo Cont In Process Unspecified. EDMS 18:16 Brain W/Wo Cont In Process Unspecified. EDMS 19:39 Attending Physician role handed off by Hugo Ann MD [facility] 19:39 Lee Gould MD is Attending Physician. radha 20:40 No provider procedures requiring assistance completed. bs2 21:02 IV discontinued, intact, bleeding controlled, No redness/swelling at site. Pressure kg dressing applied. Administered Medications: 15:18 Drug: NS 0.9% 500 ml Route: IV; Rate: bolus; Site: right antecubital; oh 17:00 Follow up: Response: No adverse reaction; IV Status: Completed infusion; IV Intake: kg 500ml 15:19 Drug: Reglan (metoCLOPramide) 10 mg Route: IVP; Site: right antecubital; oh 18:17 Follow up: Response: No adverse reaction oh 15:19 Drug: Decadron - Dexamethasone 10 mg Route: IVP; Site: right antecubital; oh 18:16 Follow up: Response: No adverse reaction oh 20:50 Not Given (route changee): foLIC Acid 1 mg IVPB once bs2 20:50 Not Given (route changee): Aspirin Chewable Tablet 324 mg PO once; 81 mg tablets x 4 bs2 20:50 Not Given (route changee): Rocephin (cefTRIAXone) 1 grams IV at per protocol once; bs2 Given slow IV push per pharmacy instructions 20:55 Drug: Bactrim (trimethoprim-sulfamethoxazole) (160 mg-800 mg (DS) 1 tablet Route: PO; kg 21:01 Follow up: Response: No adverse reaction kg 20:55 Drug: foLIC Acid 1 mg Route: PO; kg 21:01 Follow up: Response: No adverse reaction kg Intake: 17:00 IV: 500ml; Total: 500ml. kg Outcome: 20:47 Discharge ordered by . radha 21:02 Discharged to home ambulatory. kg 21:02 Condition: improved 21:02 Discharge instructions given to patient, family, significant other, Instructed on discharge instructions, follow up and referral plans. Demonstrated understanding of instructions, follow-up care, medications, Prescriptions given X 2. 21:03 Patient left the ED. kg Addendum: 05/06/2021 17:50 Addendum: Culture Results: Positive urine culture. Bacteria is resistant to, has s s intermediate sensitivity, or is not tested against prescribed antibiotics. Report given to HALIE for further evaluation and then to steel finisher for follow up with patient. Phone call Attempt #1 Attempted to call patient. No answer. LEft VM. Recommendation by CALLY Cool to follow up with [facility]. Signatures: Dispatcher [employer] EDMS Lee Gould MD MD cha Nieto, Roman, MD MD rn Smirch, Shelby, RN RN ss Monik Gomez Amanda, RN RN ap3 Theodora Mac kj1 Francesco Perez RN RN ll1 Katherine Bettencourt RN RN kg Kati Smith RN RN bs2 Toya [facility] Sophie Snyder RN RN oh
--- NOTE | 2021-05-03 20:48 | EDPHYS ---
Physician Documentation [facility] Name: Avila Marsh Age: 89 yrs Sex: Male : 1930 Arrival Date: 05/03/2021 Time: 13:57 Bed 13 Private MD: AMBER Physician Lee Gould HPI: 05/03 15:16 This 89 yrs old Male presents to ER via Ambulatory with complaints of rn Headache. 15:16 The patient complains of pain to the top of head. The patient describes the headache as rn aching. 15:17 Onset: The symptoms/episode began/occurred today. Associated signs and symptoms: rn Pertinent negatives: altered mental status, fever, neck stiffness, rash, vision loss, vomiting, weakness, vertigo. Severity of symptoms: At its worst the pain was moderate, in the emergency department the pain is unchanged. Headache History: The patient has had previous headaches and this one is similar to previous episodes. The symptoms are alleviated by nothing. the symptoms are aggravated by nothing. The patient has experienced similar episodes in the past. The patient has not recently seen a physician. Patient reports headache that began today. Reports usually gets ocular migraines at least once a month, but usually does not have a concurrent headache. States having an ocular migraine today but then I headache started. Headache is not worst headache of his life. States 5 out of 10 and hurts all over. No vision loss. Has the visual disturbance consistent with his ocular migraines. Also feels like his gait is a little unsteady. But denies any focal neurological deficit. No chest pain/cough/abdominal pain/vomiting/diarrhea. No fever.. Historical: - Allergies: 14:27 Ciprofloxacin; ll1 - Home Meds: 15:40 amlodipine 5 mg tab 1 tab once daily [Active]; biotin 2,500 mcg Oral cap daily oh [Active]; Fish Oil Oral daily [Active]; hydralazine 75 mg Oral tab 2 times per day [Active]; Magnesium Oxide Oral 400 mg daily [Active]; Multi-Day Oral daily [Active]; Vitamin C 1,000 mg Oral tab daily [Active]; - PMHx: 14:27 Anemia; Bladder cancer; DVT; Hypertension; kidney problems; ll1 - PSHx: 14:27 None; ll1 - Immunization history:: Client reports receiving the 2nd dose of the Covid vaccine. - Social history:: Smoking status: Patient denies any tobacco usage or history of. - Family history:: not pertinent. - Hospitalizations: : No recent hospitalization is reported. ROS: 15:17 Constitutional: Negative for fever, chills, and weight loss, Eyes: Negative for injury, rn pain, redness, and discharge, ENT: Negative for injury, pain, and discharge, Neck: Negative for injury, pain, and swelling, Cardiovascular: Negative for chest pain, palpitations, and edema, Respiratory: Negative for shortness of breath, cough, wheezing, and pleuritic chest pain, Abdomen/GI: Negative for abdominal pain, nausea, vomiting, diarrhea, and constipation, Back: Negative for injury and pain, : Negative for injury, bleeding, discharge, and swelling, MS/Extremity: Negative for injury and deformity, Skin: Negative for injury, rash, and discoloration, Neuro: Negative for weakness, numbness, tingling, and seizure. 15:17 All other systems are negative. Exam: 15:17 Constitutional: This is a well developed, well nourished patient who is awake, alert, rn and in no acute distress. Head/Face: Normocephalic, atraumatic. Eyes: Periorbital areas with no swelling, redness, or edema. Neck: Trachea midline, no thyromegaly or masses palpated, and no cervical lymphadenopathy. Supple, full range of motion without nuchal rigidity, or vertebral point tenderness. No Meningismus. Cardiovascular: Regular rate and rhythm. No pulse deficits. Respiratory: No increased work of breathing, no retractions or nasal flaring. Abdomen/GI: Soft, non-tender Skin: Warm, dry MS/ Extremity: Pulses equal, no cyanosis. Neuro: Awake and alert, GCS 15, oriented to person, place, time, and situation. Cranial nerves II-XII grossly intact. Motor strength 5/5 in all extremities. Sensory grossly intact. Cerebellar exam normal. Normal gait. 20:48 ECG was reviewed by the Attending Physician. [facility] Vital Signs: 14:26 BP 181 / 82; Pulse 74; Resp 17; Temp 98.3; Pulse Ox 96% ; Weight 72.57 kg; Height 5 ft. ll1 7 in. (170.18 cm); Pain 6/10; 15:41 BP 156 / 66; Pulse 73; Resp 19; Pulse Ox 96% on R/A; oh 19:40 BP 149 / 74; Pulse 78; Resp 18; Pulse Ox 100% on R/A; Pain 0/10; kc4 21:02 BP 138 / 65; Pulse 81; Resp 18; Pulse Ox 99% on R/A; kg 14:26 Body Mass Index 25.06 (72.57 kg, 170.18 cm) ll1 [place] Coma Score: 20:42 Eye Response: spontaneous(4). Verbal Response: oriented(5). Motor Response: obeys radha commands(6). Total: 15. MDM: 14:36 Patient medically screened. rn 19:41 Patient medically screened. radha 20:42 Differential diagnosis: cluster headache, cerebral vascular accident, epidural radha hematoma, hyponatremia, neoplasm, otitis, temporal arteritis, tension headache, trigeminal neuralgia. Data reviewed: vital signs, nurses notes, lab test result(s), EKG, radiologic studies, CT scan, MRI, plain films. Data interpreted: library monitor: rate is 78 beats/min, rhythm is regular, Pulse oximetry: on room air. Test interpretation: by ED physician or midlevel provider: ECG, plain radiologic studies. Counseling: I had a detailed discussion with the patient and/or guardian regarding: the historical points, exam findings, and any diagnostic results supporting the discharge/admit diagnosis, lab results, radiology results, the need for outpatient follow up, for definitive care, a family practitioner, a neurologist. 20:44 Physician consultation: Sixto Williamson MD and will see patient in office, discussed radha all studies, will follow up , asp and folic acid. 05/03 14:56 Order name: Basic Metabolic Panel; Complete Time: 16:52 05/03 14:56 Order name: CBC with Diff; Complete Time: 16:52 05/03 14:56 Order name: Protime (+inr); Complete Time: 16:52 05/03 14:56 Order name: Ptt, Activated; Complete Time: 16:52 05/03 14:56 Order name: Urine Microscopic Only; Complete Time: 18:54 05/03 14:56 Order name: Urine Culture 05/03 14:31 Order name: CT Head Brain wo Cont; Complete Time: 16:52 05/03 15:54 Order name: MRA Head Wo Cont; Complete Time: 19:46 EDMS 05/03 15:57 Order name: MRA Neck W/Wo Cont; Complete Time: 19:46 EDMS 05/03 15:57 Order name: Brain W/Wo Cont; Complete Time: 19:46 EDMS 05/03 14:56 Order name: EKG; Complete Time: 14:57 rn 05/03 14:56 Order name: Cardiac monitoring; Complete Time: 15:07 rn 05/03 14:56 Order name: EKG - Nurse/Tech; Complete Time: 15:08 rn 05/03 14:56 Order name: IV Saline Lock; Complete Time: 15:07 rn 05/03 14:56 Order name: Labs collected and sent; Complete Time: 15:07 rn 05/03 14:56 Order name: O2 Sat Monitoring; Complete Time: 15:35 rn 05/03 14:56 Order name: Urine Dipstick-Ancillary (obtain specimen); Complete Time: 16:55 rn EC:48 Rate is 62 beats/min. Rhythm is regular. QRS [place] is Normal. VA interval is normal. QRS radha interval is normal. QT interval is normal. No Q waves. T waves are Normal. No ST changes noted. Clinical impression: NSR w/ Non-specific ST/T Changes, 1st degree heart block, and No evidence of ischemia. Interpreted by me. Reviewed by me. Administered Medications: 15:18 Drug: NS 0.9% 500 ml Route: IV; Rate: bolus; Site: right antecubital; oh 17:00 Follow up: Response: No adverse reaction; IV Status: Completed infusion; IV Intake: kg 500ml 15:19 Drug: Reglan (metoCLOPramide) 10 mg Route: IVP; Site: right antecubital; oh 18:17 Follow up: Response: No adverse reaction oh 15:19 Drug: Decadron - Dexamethasone 10 mg Route: IVP; Site: right antecubital; oh 18:16 Follow up: Response: No adverse reaction oh 20:50 Not Given (route changee): foLIC Acid 1 mg IVPB once bs2 20:50 Not Given (route changee): Aspirin Chewable Tablet 324 mg PO once; 81 mg tablets x 4 bs2 20:50 Not Given (route changee): Rocephin (cefTRIAXone) 1 grams IV at per protocol once; bs2 Given slow IV push per pharmacy instructions 20:55 Drug: Bactrim (trimethoprim-sulfamethoxazole) (160 mg-800 mg (DS) 1 tablet Route: PO; kg 21:01 Follow up: Response: No adverse reaction kg 20:55 Drug: foLIC Acid 1 mg Route: PO; kg 21:01 Follow up: Response: No adverse reaction kg Disposition Summary: 05/03/21 20:47 Discharge Ordered Location: Home radha Problem: new radha Symptoms: have improved radha Condition: Stable radha Diagnosis - UTI/ Urinary tract infection, site not specified radha - Headache radha Followup: radha - With: Private Physician - When: 2 - 3 days - Reason: Recheck today's complaints, Continuance of care, Re-evaluation by your physician Discharge Instructions: - Discharge Summary Sheet radha - General Headache Without Cause radha - Urinary Tract Infection, Adult radha - Urinary Tract Infection, Adult, [id number] radha - Aspirin and Your Heart radha - General Headache Without Cause, [place]-[id number] radha Forms: - Medication Reconciliation Form radha - Thank You Letter radha - Antibiotic Education radha - Prescription Opioid Use radha Prescriptions: - Folic Acid 1 mg Oral Tablet - take 1 tablet by ORAL route once daily; 30 tablet; Refills: 0, Product radha Selection Permitted - Bactrim DS 800-160 mg Oral Tablet - take 1 tablet by ORAL route every 12 hours for 7 days; 14 tablet; Refills: 0, radha Product Selection Permitted Signatures: Dispatcher [employer] Lee Sutton MD MD cha Nieto, Roman, MD MD rn Lewis, Lynsay, RN RN ll1 Katherine Bettencourt RN RN kg Kati Smith RN RN bs2 Sophie Snyder RN RN oh Corrections: (The following items were deleted from the chart) 15:54 14:59 MR STROKE PROTOCOL+MRI.RAD.BRZ ordered. EDMS TURCIOS
[2021-05-03] MEDS ORDERED: ASPIRIN 81 MG CHEWABLE TABLET ONE (21:09)
[2021-05-03] MEDS ORDERED: CEFTRIAXONE/SWI 1gm 0 GM/0 ML SYR ONE (21:10)
[2021-05-03] MEDS ORDERED: FOLIC ACID 5 MG/ML VIAL ONE (21:10)
[2021-05-03] MEDS ORDERED: FOLIC ACID 1 MG TABLET ONE (21:17)
[2021-05-03] MEDS ORDERED: SMZ./TMP. 800/160 MG TABLET ONE (21:17)
[2021-05-03 23:03] VITALS: TEMP 98.3
[2021-05-03 23:07] VITALS: BP 138/65; O2SAT 99
[2021-05-11 10:55] LABS: Urine Blood Negative (Negative); Urine Glucose Negative (Negative); Urine Protein 2+ (Negative); Urine Specific Gravity 1.015 (1.005-1.030)
== END 2021-05-03 21:03 | disposition home or self-care (01) ==
LOC: ER 13:54
DX: N39.0 Urinary tract infection, site not specified (principal); I10 Essential (primary) hypertension; Z88.1 Allergy status to other antibiotic agents
CPT/HCPCS: 96361; 93005; 87088; 85025; 87086; 80048; 36415; 85610; 85730; 87077; 87186; 81015; 70450; 70553; 70544; 70549; 96375; 96374; 99284; A9577; J2765; J1100; J7040; 81003; J0696